=== PATIENT | female | born 1955 | race Caucasian/White ===

== ENCOUNTER 2019-11-18 10:26 | Emergency (ER) | payer MEDICARE, SELFPAY ==
[2019-11-18 10:43] VITALS: BP 160/86; PULSE 78; RESP 16; TEMP 36.6; O2SAT 100
--- NOTE | 2019-11-18 10:53 | ED.EYEPROB ---
HPI - Eye Problem General Chief complaint: Eye Problems Stated complaint: eye problems Time Seen by Provider: 11/18/19 10:47 Source: patient and RN notes reviewed Mode of arrival: ambulatory Limitations: no limitations History of Present Illness HPI Narrative: Patient presents today complaining of redness, pain, and swelling to the right upper eyelid since yesterday. Reports a small amount of drainage in the inner canthus when she woke up this morning, but denies any additional drainage. Denies vision changes. She has tried no [id number] interventions prior to arrival. chief complaint: eye pain Related Data Home Medications Medication Instructions Recorded Confirmed loperamide 11/18/19 Allergies Allergy/AdvReac Type Severity Reaction Status Date / Time Opioids - Morphine Analogues AdvReac Vomiting Verified 04/21/19 12:40 Review of Systems Review of Systems: Narrative: CONSTITUTIONAL: Denies body aches, fever, chills, or sweats. EYES: Denies visual changes, redness, or discharge. Right eyelid redness and swelling ENT: Denies rhinorrhea, congestion, sore throat, or otalgia. CARDIOVASCULAR: Denies chest pain, palpitations, or edema. RESPIRATORY: Denies cough or dyspnea. GASTROINTESTINAL: Denies abdominal pain, nausea, vomiting, or diarrhea. GENITOURINARY: Denies dysuria or hematuria. SKIN: Denies rash, itching, or wounds. MUSCULOSKELETAL: Denies back pain, joint pain, or myalgia. NEUROLOGIC: Denies headache, numbness, tingling, or weakness. PSYCH: Denies depression or anxiety. [facility] Past Medical History Medical History (Updated 11/18/19 @ 10:55 by Gi Ha, [facility], ) Anxiety Depression IBS (irritable bowel syndrome) Kidney stone on right side Surgical History Surgical History (Updated 04/21/19 @ 21:48 by Veronica Barraza) Hx of lithotripsy Family History Family History (Updated 02/14/19 @ 08:21 by DOCTOR UNKNOWN) Father Family history of coronary artery disease, Onset Age: 64 Mother Family history of malignant neoplasm of breast in first degree relative Sibling Family history of malignant neoplasm of breast in first degree relative Social History Social History Smoking status: Never smoker Alcohol intake: never Comments At time of signature, I have reviewed and agree with nursing past medical, surgical, social and family history unless otherwise noted. Please see nursing chart for further information. There is no relevant family history pertinent to the presenting complaint Exam Narrative: Exam Narrative: GENERAL: Well-appearing, well-nourished, and in no acute distress. HEAD: Normocephalic, atraumatic. EYES: EOMI. PERRL. No redness or drainage. Conjunctivae normal bilaterally. Mild edema of the right upper eyelid margin with small pustule to inner canthus. ENT: Mucous membranes pink and moist. NECK: Normal AROM. CHEST: No respiratory distress. EXTREMITIES: Normal range of motion. No edema. SKIN: Warm, dry, no rash. Capillary refill normal. Normal skin turgor. NEURO: No focal deficits. Alert and oriented x3. Gait steady. PSYCH: Normal affect. No signs of depression or anxiety. Course Vital Signs Vital signs: Vital Signs Temperature 97.9 F 11/18/19 10:43 Pulse Rate 78 11/18/19 10:43 Respiratory Rate 16 11/18/19 10:43 Blood Pressure 160/86 H 11/18/19 10:43 Pulse Oximetry 100 11/18/19 10:43 Temperature 97.9 F 11/18/19 10:43 Pulse Rate 78 11/18/19 10:43 Respiratory Rate 16 11/18/19 10:43 Blood Pressure 160/86 H 11/18/19 10:43 Pulse Oximetry 100 11/18/19 10:43 Reviewed. Pt has been instructed to follow up with her PCP regarding her elevated blood pressure today. MDM - Eye Problem Differential Diagnosis Differential diagnosis: Likely conjunctivitis, periorbital cellulitis and other (Stye, blepharitis) Critical Care Time Critical Care Time Critical Care Time: No Discharge Plan Discharge C
== END 2019-11-18 11:02 | disposition home or self-care (01) ==
PROVIDERS: Emergency Provider Nurse Practitioner; PCP Family Medicine
DX: H00.011 Hordeolum externum right upper eyelid (principal); K58.9 Irritable bowel syndrome, unspecified; F41.9 Anxiety disorder, unspecified; F32.9 Major depressive disorder, single episode, unspecified
CPT/HCPCS: 99213; G0463

== ENCOUNTER 2019-12-04 09:24 | Emergency (ER) | payer MEDICARE, SELFPAY ==
[2019-12-04 09:50] VITALS: BP 152/80; PULSE 82; RESP 18; TEMP 36.4; O2SAT 100
--- NOTE | 2019-12-04 10:06 | ED.FEMALEGU ---
HPI - Female Genitourinary General Chief complaint: Urogenital-Female Stated complaint: Possible uti Time Seen by Provider: 12/04/19 09:57 Source: patient and RN notes reviewed Mode of arrival: ambulatory Limitations: no limitations History of Present Illness HPI Narrative: Patient presents today complaining of a 3-day history of dysuria, urgency, urinary frequency. Denies fever, nausea, vomiting, flank pain, or abdominal pain. She has been taking Azo with some relief. No recent antibiotic use. MD elicited complaint: dysuria Related Data Home Medications Medication Instructions Recorded Confirmed loperamide 1 tablet QID 11/18/19 12/04/19 Allergies Allergy/AdvReac Type Severity Reaction Status Date / Time Opioids - Morphine Analogues AdvReac Vomiting Verified 04/21/19 12:40 Review of Systems Review of Systems: Narrative: CONSTITUTIONAL: Denies body aches, fever, chills, or sweats. EYES: Denies visual changes, redness, or discharge. ENT: Denies rhinorrhea, congestion, sore throat, or otalgia. CARDIOVASCULAR: Denies chest pain, palpitations, or edema. RESPIRATORY: Denies cough or dyspnea. GASTROINTESTINAL: Denies abdominal pain, nausea, vomiting, or diarrhea. GENITOURINARY: Denies hematuria or flank pain.+ Dysuria, frequency, urgency SKIN: Denies rash, itching, or wounds. MUSCULOSKELETAL: Denies back pain, joint pain, or myalgia. NEUROLOGIC: Denies headache, numbness, tingling, or weakness. PSYCH: Denies depression or anxiety. [facility] Past Medical History Medical History (Updated 12/04/19 @ 10:08 by Gi Ha, [facility]) Anxiety Depression IBS (irritable bowel syndrome) Kidney stone on right side Surgical History Surgical History (Updated 04/21/19 @ 21:48 by Veronica Barraza) Hx of lithotripsy Family History Family History (Updated 02/14/19 @ 08:21 by DOCTOR UNKNOWN) Father Family history of coronary artery disease, Onset Age: 64 Mother Family history of malignant neoplasm of breast in first degree relative Sibling Family history of malignant neoplasm of breast in first degree relative Social History Social History Smoking status: Never smoker Alcohol intake: never Gender identity (if verbalized by the patient): Female Comments At time of signature, I have reviewed and agree with nursing past medical, surgical, social and family history unless otherwise noted. Please see nursing chart for further information. There is no relevant family history pertinent to the presenting complaint Exam Narrative: Exam Narrative: GENERAL: Well-appearing, well-nourished, and in no acute distress. HEAD: Normocephalic, atraumatic. EYES: EOMI. No redness or drainage. Conjunctivae normal. ENT: Mucous membranes pink and moist. NECK: Normal AROM. CHEST: No respiratory distress. Clear to auscultation. HEART: Regular rate and rhythm. No murmur appreciated. Normal peripheral pulses. ABDOMEN: Soft, nontender, nondistended, normal active bowel sounds.-CVAT MUSCULOSKELETAL: No bony tenderness. EXTREMITIES: Normal range of motion. No edema. SKIN: Warm, dry, no rash. Capillary refill normal. Normal skin turgor. NEURO: No focal deficits. Alert and oriented x3. Gait steady. PSYCH: Normal affect. No signs of depression or anxiety. Course Vital Signs Vital signs: Vital Signs Temperature 97.6 F 12/04/19 09:50 Pulse Rate 82 12/04/19 09:50 Respiratory Rate 18 12/04/19 09:50 Blood Pressure 152/80 H 12/04/19 09:50 Pulse Oximetry 100 12/04/19 09:50 Temperature 97.6 F 12/04/19 09:50 Pulse Rate 82 12/04/19 09:50 Respiratory Rate 18 12/04/19 09:50 Blood Pressure 152/80 H 12/04/19 09:50 Pulse Oximetry 100 12/04/19 09:50 Reviewed. Pt has been instructed to follow up with her PCP regarding her elevated blood pressure today. MDM - Female Genitourinary Differential Diagnosis Differential diagnosis: Likely urinary tract infection, vaginitis, cystitis and
== END 2019-12-04 10:17 | disposition home or self-care (01) ==
PROVIDERS: Emergency Provider Nurse Practitioner; PCP Family Medicine
DX: N39.0 Urinary tract infection, site not specified (principal)
CPT/HCPCS: 81003; 87086; 99213; G0463

== ENCOUNTER 2020-02-05 07:20 | Outpatient (CLI) | payer MEDICARE, OTHER, SELFPAY ==
--- NOTE | ~2020-02-05 | US_ITS ---
EXAMINATION: US right upper quadrant DATE: 02/05/2020 07:53 INDICATION: Right upper quadrant pain, other chest pain TECHNIQUE: Multiple grayscale and Doppler ultrasound images of the abdomen were obtained. COMPARISON: CT, 04/21/2019 FINDINGS: The head and and body of the pancreas are normal. The pancreatic tail is obscured by bowel gas. There is a 1.5 cm cyst of the liver. The liver is otherwise normal with normal echogenicity and echotexture. No surface nodularity. Normal hepatopetal flow in the main portal vein. The gallbladder is normal with no abnormal wall thickening, pericholecystic fluid or stones. The normal common bile d uct measures 4 mm. There was no sonographic Osullivan sign. IMPRESSION: 1. Normal sonographic study of the gallbladder. Reviewed, dictated and finalized at location A.
== END 2020-02-05 07:21 | disposition home or self-care (01) ==
LOC: ANHIMG 07:25
PROVIDERS: PCP Family Medicine; Visit Provider Physician Assistant
DX: R07.89 Other chest pain (principal)
CPT/HCPCS: 76705

== ENCOUNTER 2020-02-09 07:30 | Outpatient (CLI) | payer MEDICARE, OTHER, SELFPAY ==
--- NOTE | ~2020-02-09 | NM_ITS ---
EXAMINATION: NM hepatobiliary w pharm DATE: 02/09/2020 10:44 INDICATION: Unspecified abdominal pain. COMPARISON: Ultrasound 02/05/2020 TECHNIQUE: 4.9 mCi Tc-99m mebrofenin (Choletec) was administered intravenously. Scintigraphic images of the abdomen were obtained for one hour. Then, 1.1 mcg sincalide (Kinevac) IV was administered, an d imaging was continued for 30 minutes. FINDINGS: There is normal clearance of radiotracer from the blood pool. There is homogeneous tracer u ptake by the liver. Activity progresses to the bowel and gallbladder. Gallbladder ejection fraction (GBEF) was 69%. Note that most patients with gallbladder dysfunction have GBEF < 35%, which overlaps with the broad normal range of 10-90%. IMPRESSION: 1. Normal hepatobiliary scintigraphy. Reviewed, dictated and finalized at location A.
== END 2020-02-09 07:31 | disposition home or self-care (01) ==
PROVIDERS: PCP Family Medicine; Visit Provider Family Medicine
DX: R10.9 Unspecified abdominal pain (principal)
CPT/HCPCS: 78227; A9537; J2805

== ENCOUNTER 2020-07-12 09:40 | Emergency (ER) | payer MEDICARE, SELFPAY ==
[2020-07-12 09:49] VITALS: BP 142/79; PULSE 110; RESP 16; TEMP 36; O2SAT 99
--- NOTE | 2020-07-12 09:50 | ED.FEMALEGU ---
HPI - Female Genitourinary General Chief complaint: Urogenital-Female Stated complaint: burning urination Time Seen by Provider: 07/12/20 10:04 Source: patient and RN notes reviewed Mode of arrival: ambulatory Limitations: no limitations History of Present Illness HPI Narrative: 65-year-old female presents with concern for urinary tract infection for 7 days. Reports dysuria, low back discomfort, feeling of brain fogginess. Reports she has been taking and prescription of Bactrim, that in 2018, for the past 3 days. Reports the symptoms did not resolve with the Bactrim. Reports she is also been taking Azo, took it today. She denies fever, body aches, chills, sweats, abdominal pain, nausea, vomiting, diarrhea. MD elicited complaint: UTI Related Data Home Medications Medication Instructions Recorded Confirmed loperamide 1 tablet QID 11/18/19 06/07/20 omeprazole 20 mg tablet,delayed 20 mg PO DAILY 01/25/20 06/07/20 release Allergies Allergy/AdvReac Type Severity Reaction Status Date / Time Opioids - Morphine Analogues AdvReac Vomiting Verified 06/07/20 08:59 Review of Systems Review of Systems: Narrative: CONSTITUTIONAL: Denies malaise, chills, sweats, or fever. EYES: Denies visual changes, redness, or discharge. ENT: Denies rhinorrhea, congestion, sinus pain, otalgia or sore throat. CARDIOVASCULAR: Denies chest pain, palpitations, or edema. RESPIRATORY: Denies cough or dyspnea. GASTROINTESTINAL: Denies abdominal pain, nausea, vomiting, diarrhea, bloody, or mucous stools. GENITOURINARY: Reports dysuria. Denies frequency, urgency, hematuria. SKIN: Denies rash or itching. MUSCULOSKELETAL: Reports bilateral low back pain. Denies myalgia. NEUROLOGIC: Denies numbness, weakness, or headache. All systems reviewed & are unremarkable except as noted in HPI and below PMFSH Past Medical History Medical History Anxiety Depression IBS (irritable bowel syndrome) Kidney stone on right side Surgical History Surgical History Hx of lithotripsy Family History Family History Father Family history of coronary artery disease, Onset Age: 64 Mother Family history of malignant neoplasm of breast in first degree relative Sibling Family history of malignant neoplasm of breast in first degree relative Social History Social History Smoking status: Current every day smoker Tobacco type: cigarettes Additional smoking assessment comments: Started 3-4mo ago Alcohol intake: current Drinks per week: 8 Substance use: never Substance use type: does not use Gender identity (if verbalized by the patient): Female Comments At time of signature, agree with nursing past medical, surgical, social and family history. There is no relevant family history pertinent to the presenting complaint Exam Narrative: Exam Narrative: GENERAL: Well-appearing, well-nourished, and in no acute distress. HEAD: Normocephalic. EYES: PERRLA, conjunctivae clear. NECK: Supple. No lymphadenopathy CHEST: Clear to auscultation. No respiratory distress. HEART: Regular rate and rhythm. ABDOMEN: Soft, nontender upon palpation, nondistended, normal active bowel sounds, no palpable or pulsatile masses, no guarding. No CVA tenderness SKIN: Warm, dry, no rash. NEURO: Alert and oriented x3. No focal deficits PSYCH: Normal mood and affect Course Course Emergency Course: Patient is aware of diagnosis, understands and agrees to treatment plan. Anticipatory guidance given. Patient agrees to follow-up as directed and is aware of reasons to seek care at the emergency department. Portions of this record may have been created with voice recognition software Vital Signs Vital signs: Vital Signs Temperature 96.8 F L
== END 2020-07-12 10:17 | disposition home or self-care (01) ==
PROVIDERS: Emergency Provider Nurse Practitioner; PCP Family Medicine
DX: R30.0 Dysuria (principal); M54.5 Low back pain; F17.210 Nicotine dependence, cigarettes, uncomplicated
CPT/HCPCS: 81003; 87086; 99213; G0463

== ENCOUNTER 2020-10-23 15:33 | Outpatient (CLI) | payer MEDICARE, OTHER, SELFPAY ==
--- NOTE | ~2020-10-23 | MM_ITS ---
EXAMINATION: MM screening marie BI w callum HISTORY: Screening TECHNIQUE: Craniocaudal and mediolateral oblique 3-D tomosynthesis images were obtained and synthetic 2-D images were generated. CAD analysis was submitted and interpreted. COMPARISON: Comparison to multiple prior studies sequentially, with oldest reviewed study dated 02/10. BREAST PARENCHYMAL COMPOSITION: The breasts are extremely dense, which lowers the sensitivity of mamm ography. FINDINGS: There are developing asymmetries centrally in the left breast on CC view with possible arch itectural distortion. These findings are not definitely seen on the MLO view. The right breast is sta ble without evidence for malignancy. IMPRESSION: 1. Developing left breast asymmetries. 2. Additional mammographic views and possible breast ultrasound are recommended. BI-RADS Category 0: Incomplete: Needs additional imaging evaluation. Reviewed, dictated and finalized at location A. IMPRESSION: 1. Developing left breast asymmetries. 2. Additional mammographic views and possible breast ultrasound are recommended . BI-RADS Category 0: Incomplete: Needs additional imaging evaluation.
== END 2020-10-23 15:34 | disposition home or self-care (01) ==
LOC: ANHIMG 15:35
PROVIDERS: PCP Family Medicine; Visit Provider Family Medicine
DX: Z12.31 Encounter for screening mammogram for malignant neoplasm of breast (principal); R92.8 Other abnormal and inconclusive findings on diagnostic imaging of breast
CPT/HCPCS: 77063; 77067

== ENCOUNTER 2020-11-19 12:14 | Outpatient (CLI) | payer MEDICARE, OTHER, SELFPAY ==
--- NOTE | ~2020-11-19 | MMUS_ITS ---
EXAMINATION: MM diagnostic mammo unilat LT, US breast LT complete HISTORY: Follow-up left breast asymmetry TECHNIQUE: Additional 3-D tomosynthesis images of the left breast were performed and synthetic 2-D im ages were generated. CAD analysis was submitted and interpreted. High resolution complete left breast ultrasound was performed. COMPARISON: Comparison to multiple prior studies sequentially, with oldest reviewed study dated 02/10. BREAST PARENCHYMAL COMPOSITION: The breasts are heterogenously dense, which may obscure small masses. FINDINGS: MAMMOGRAPHIC FINDINGS: There are no suspicious masses, calcifications or architectural distortion with spot compression or m ediolateral views. ULTRASOUND: Complete left breast ultrasound: At 1:00, 7 cm from the nipple, there is a 1 cm cyst. No suspicious m asses to suggest malignancy. IMPRESSION: 1. No evidence for malignancy in the left breast. Benign finding. 2. Routine yearly screening mammogram and regular clinical breast examination are recommended. BI-RADS Category 2: Benign finding(s). Reviewed, dictated and finalized at location A. IMPRESSION: 1. No evidence for malignancy in the left breast. Benign finding. 2. Routine yearly screening mammogram and regular clinical breast examination a re recommended. BI-RADS Category 2: Benign finding(s).
== END 2020-11-19 12:15 | disposition home or self-care (01) ==
LOC: ANHIMG 12:16
PROVIDERS: PCP Family Medicine; Visit Provider Family Medicine
DX: R92.8 Other abnormal and inconclusive findings on diagnostic imaging of breast (principal)
CPT/HCPCS: 76641; 77065

== ENCOUNTER 2021-03-31 15:50 | Outpatient (CLI) | payer MEDICARE, OTHER, SELFPAY ==
--- NOTE | ~2021-03-31 | XR_ITS ---
XR knee RT 3V DATE: 03/31/2021 16:19 INDICATION: Fall in January. Lateral right knee pain TECHNIQUE: AP, lateral and sunrise views COMPARISON: None FINDINGS: There is prominent distention of the suprapatellar bursa consistent with a large joint effu stan. There is mild periarticular spurring of the patella. There is prominent loss of lateral compartment joint space and mild periarticular spurring. There is minimal particular spurring at the medial compartment. No fracture or dislocation, periosteal reaction or bone destruction, radiopaque intra-articular loose body or chondrocalcinosis is detected. 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 Consider MRI for evaluation of possible internal derangement Reviewed, dictated and finalized at location B. IMPRESSION: Tricompartment osteoarthritis, most pronounced at the lateral nestor rtment Prominent knee joint effusion; no apparent fracture. Consider MRI for evaluatio n of possible internal derangement
--- NOTE | ~2021-03-31 | XR_ITS ---
XR lumbar spine 2-3V DATE: 03/31/2021 16:19 INDICATION: Fall in January 2021. Right low back pain, worsening TECHNIQUE: AP, lateral, coned lateral lumbosacral views COMPARISON: None FINDINGS: There is levoscoliosis of the thoracolumbar spine. There are 6 functional lumbar vertebrae. There is diffuse osteopenia. No fracture or bone destruction is detected. The lumbar and included lower thoracic pedicles are inta ct. Lumbar interspaces appear relatively preserved. The sacroiliac joints are intact. IMPRESSION: Levoscoliosis Reviewed, dictated and finalized at location B. IMPRESSION: Levoscoliosis
--- NOTE | ~2021-03-31 | XR_ITS ---
XR hip RT min 2V DATE: 03/31/2021 16:20 INDICATION: Fall. Right hip pain radiating down leg TECHNIQUE: AP, lateral and crosstable lateral views of right hip COMPARISON: None FINDINGS: No fracture or dislocation, avascular necrosis or bone destruction of the right hip. The ri t hip joint space is well preserved. The pubic symphysis and sacroiliac joints are intact. IMPRESSION: Negative right hip Reviewed, dictated and finalized at location B. IMPRESSION: Negative right hip
== END 2021-03-31 15:51 | disposition home or self-care (01) ==
LOC: ANHIMG 15:55
PROVIDERS: PCP Family Medicine; Visit Provider Nurse Practitioner Family
DX: M25.551 Pain in right hip (principal); M54.50 Low back pain, unspecified; M17.11 Unilateral primary osteoarthritis, right knee; M25.461 Effusion, right knee
CPT/HCPCS: 72100; 73502; 73562

== ENCOUNTER 2021-04-20 09:46 | Emergency (ER) | payer MEDICARE, OTHER, SELFPAY ==
--- NOTE | ~2021-04-20 | XR_ITS ---
EXAMINATION: XR foot LT min 3V EXAM DATE: 04/20/2021 10:14 INDICATION: Trauma, initial encounter.attention dorsal mid left foot hematoma pain and limited weight bearing. TECHNIQUE: Left foot dorsoplantar, lateral and oblique projections obtained and reviewed. There is n o prior study for comparison. FINDINGS: Acute closed posttraumatic mildly comminuted fracture at the base of the left 5th metatarsa l bone, with fracture line extending both into the tarsometatarsal joint and also toward the 4th meta tarsal base, Dennis type fracture. Only 1 or 2 mm displacement. There is overlying soft tissue swellin g. No other acute findings. IMPRESSION: Mildly comminuted left 4th metatarsal base intra-articular fractures. Reviewed, dictated and finalized at location A. IMPRESSION: Mildly comminuted left 4th metatarsal base intra-articular fractur es.
[2021-04-20 09:55] VITALS: PULSE 94; RESP 16; TEMP 36.7; O2SAT 98
[2021-04-20 10:00] VITALS: BP 143/81
--- NOTE | 2021-04-20 10:18 | ED.LOWEXIN ---
HPI - Extremity Injury (Lower) General Chief Complaint: Extremity Injury, Lower <Jessi Hernández PA-C - Last Filed: 04/20/21 10:35> Stated Complaint: left foot injury <LORENA Garcia Last Filed: 04/20/21 10:35> Time Seen by Provider: 04/20/21 10:10 <LORENA Garcia Last Filed: 04/20/21 10:35> Source: patient <LORENA Garcia Last Filed: 04/20/21 10:35> Mode of arrival: ambulatory <LORENA Garcia Last Filed: 04/20/21 10:35> Limitations: no limitations <LORENA Garcia Last Filed: 04/20/21 10:35> History of Present Illness HPI Narrative: This is a 65-year-old female that presents to the emergency department for left foot injury sustained yesterday. Reports she was taking her dog out to the bathroom. Reports she tripped down the last couple of steps. Reports this caused her to hit her foot on a stone. Reports bruising and swelling to the area. Reports pain with ambulation. Denies hitting her head, loss of consciousness, other injuries, decreased range of motion, or numbness. <Jessi Hernández PA-C - Last Filed: 04/20/21 10:35> Related Data Home Medications: Home Medications Medication Instructions Recorded Confirmed loperamide 1 tablet QID 11/18/19 12/24/20 omeprazole 20 mg tablet,delayed 20 mg PO DAILY 01/25/20 12/24/20 release bupropion HCl 150 mg 24 hr tablet, 150 mg PO QAM 11/25/20 12/24/20 extended release <LORENA Garcia Last Filed: 04/20/21 10:35> Allergies/Adverse Reactions: Allergies Allergy/AdvReac Type Severity Reaction Status Date / Time Opioids - Morphine Analogues AdvReac Vomiting Verified 12/24/20 14:42 <LORENA Garcia Last Filed: 04/20/21 10:35> Review of Systems Review of Systems: CONSTITUTIONAL: Denies fever MUSCULOSKELETAL: Reports joint pain, and myalgia. NEUROLOGIC: Denies numbness <Jessi Hernández PA-C - Last Filed: 04/20/21 10:35> All systems reviewed & are unremarkable except as noted in HPI and below <Jessi Hernández PA-C - Last Filed: 04/20/21 10:35> PMFSH Past Medical History Medical History: Medical History Anxiety Depression IBS (irritable bowel syndrome) Kidney stone on right side <Jessi Hernández PA-C - Last Filed: 04/20/21 10:35> Surgical History Surgical History: Surgical History Hx of lithotripsy <Jessi Hernández PA-C - Last Filed: 04/20/21 10:35> Family History Family History: Family History Father Family history of coronary artery disease, Onset Age: 64 Mother Family history of malignant neoplasm of breast in first degree relative Sibling Family history of malignant neoplasm of breast in first degree relative <Jessi Hernández PA-C - Last Filed: 04/20/21 10:35> Social History Social History: Social History Years smoked: 10 Smoking status: Light tobacco smoker Tobacco type: cigarettes Second hand tobacco smoke exposure: No Additional smoking assessment comments: Started 3-4mo ago Alcohol intake: current Drinks per week: 5 Substance use: never Substance use type: does not use Gender identity (if verbalized by the patient): Female Sexual Orientation (if Verbalized by the Patient): Straight or Heterosexual <Jessi Hernández PA-C - Last Filed: 04/20/21 10:35> Exam Narrative: GENERAL: Well-appearing, well-nourished, and in no acute distress. HEAD: Normocephalic, atraumatic. EYES: EOMI. EXTREMITIES: Normal range of motion. No obvious deformity. Moderate bruising and swelling to the left foot dorsal surface. Normal DP pulses. Normal sensation SKIN: Warm, dry, no rash. NEURO: No focal deficits. Alert and oriented x3. PSYCH: Normal mood and affect
== END 2021-04-20 11:52 | disposition home or self-care (01) ==
PROVIDERS: Emergency Provider Emergency Medicine; PCP Family Medicine
DX: S92.355A Nondisplaced fracture of fifth metatarsal bone, left foot, initial encounter for closed fracture (principal); F41.9 Anxiety disorder, unspecified; F32.9 Major depressive disorder, single episode, unspecified; K58.9 Irritable bowel syndrome, unspecified; Z87.442 Personal history of urinary calculi; W10.9XXA Fall (on) (from) unspecified stairs and steps, initial encounter
CPT/HCPCS: 29515; 73630; 99283; 99284

== ENCOUNTER 2021-04-27 12:30 | Outpatient (CLI) | payer MEDICARE, OTHER, SELFPAY ==
--- NOTE | ~2021-04-27 | MR_ITS ---
EXAMINATION: MR knee RT wo con DATE: 04/27/2021 13:41 INDICATION: Right knee pain. TECHNIQUE: Magnetic resonance imaging (MRI) of the right knee was performed without intravenous contr ast. Sequences included axial PD-weighted FS FSE, coronal PD-weighted FSE and PD-weighted FS FSE, sag ittal PD-weighted FSE, and sagittal T2-weighted FS FSE. COMPARISON: Right knee radiographs 03/31/2021 FINDINGS: Medial compartment: Medial meniscus is normal. There is shallow partial-thickness cartilage loss of tibial condyle and fe moral condyle. Osteophytes are noted. Lateral compartment: There is a complex tear involving body and anterior horn of lateral meniscus. There is full-thickness cartilage loss of tibial condyle involving the lateral articular surface with mild subchondral edema -like marrow signal intensity. There is full-thickness cartilage loss of femoral condyle involving th e lateral and posterior articular surface with moderate subchondral edema-like marrow signal intensit y. Osteophytes are noted. Patellofemoral compartment: There is full-thickness cartilage loss of patellar lateral facet with mild subchondral edema-like mar row signal intensity. There is deep partial-thickness colitis loss of patellar medial facet with mild subchondral edema-like marrow signal intensity. There is partial-thickness cartilage loss of trochle a. Osteophytes are noted. Ligaments and tendons: The anterior and posterior cruciate ligaments are normal. Medial collateral ligament is normal. There are changes of prior sprain of fibular collateral ligament characterized increased signal intensity proximally. There is mild patellar tendinopathy. Fluid: There is a moderate-sized knee joint effusion. There is mild superficial infrapatellar bursitis. IMPRESSION: 1. 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 2. Complex tear of lateral meniscus. 3. Moderate-sized knee joint effusion. Reviewed, dictated and finalized at location A. [facility] IMPRESSION: 1. Severe chondrosis of lateral and patellofemoral compartments and mild chondr osis of medial compartment. 2. Complex tear of lateral meniscus. 3. Moderate-sized knee joint effusion.
== END 2021-04-27 12:31 | disposition home or self-care (01) ==
PROVIDERS: PCP Family Medicine; Visit Provider Nurse Practitioner Family
DX: M25.461 Effusion, right knee (principal); S83.271A Complex tear of lateral meniscus, current injury, right knee, initial encounter; X58.XXXA Exposure to other specified factors, initial encounter
CPT/HCPCS: 73721

== ENCOUNTER 2021-04-30 08:34 | Outpatient (CLI) | payer MEDICARE, OTHER, SELFPAY ==
--- NOTE | 2021-04-30 11:15 | NEURO_ITS ---
Impression: # Complains of numbness of hands. # Bilateral Carpal Tunnel Syndrome, sensory more than motor. # Right APB mildly neurogenic. # No ulnar neuropathy. Nerve Conduction Studies Anti Sensory Summary Table Stim Site NR Peak (ms) P-T Amp (?V) Site1 Site2 Delta-P (ms) Dist (cm) Tj (m/s) Left Median Anti Sensory (2-3nd Digit) Wrist 3.2 84.3 Wrist 2-3nd Digit 3.2 14.0 44 Wrist 5.7 62.2 Wrist 2-3nd Digit 3.2 14.0 44 Right Median Anti Sensory (2-3nd Digit) Wrist 4.5 12.4 Wrist 2-3nd Digit 4.5 14.0 31 Wrist 5.6 37.2 Wrist 2-3nd Digit 4.5 14.0 31 Left Radial Anti Sensory (Base 1st Digit) Wrist 2.1 26.7 Wrist Base 1st Digit 2.1 0.0 Right Radial Anti Sensory (Base 1st Digit) Wrist 2.1 17.4 Wrist Base 1st Digit 2.1 0.0 Left Ulnar Anti Sensory (5th Digit) Wrist 2.5 39.9 Wrist 5th Digit 2.5 14.0 56 Right Ulnar Anti Sensory (5th Digit) Wrist 2.6 32.7 Wrist 5th Digit 2.6 14.0 54 Motor Summary Table Stim Site NR Onset (ms) O-P Amp (mV) Site1 Site2 Delta-0 (ms) Dist (cm) Tj (m/s) Left Median Motor (Abd Poll Brev) Wrist 3.3 2.0 Elbow Wrist 4.1 24.0 59 Elbow 7.4 1.5 Right Median Motor (Abd Poll Brev) Wrist 3.4 1.9 Elbow Wrist 4.1 24.0 59 Elbow 7.5 2.1 Left Ulnar Motor (Abd Dig Minimi) Wrist 2.4 8.3 A Elbow Wrist 4.4 26.0 59 A Elbow 6.8 7.4 Right Ulnar Motor (Abd Dig Minimi) Wrist 2.2 8.8 A Elbow Wrist 4.3 25.0 58 A Elbow 6.5 7.5 F Wave Studies NR F-Lat (ms) L-R F-Lat (ms) Left Median (Mrkrs) (Abd Poll Brev) 24.45 0.12 Right Median (Mrkrs) (Abd Poll Brev) 24.57 0.12 Left Ulnar (Mrkrs) (Abd Dig Min) 24.43 0.76 Right Ulnar (Mrkrs) (Abd Dig Min) 23.67 0.76 EMG Side Muscle Nerve Root Ins Act Fibs Amp Dur Recrt Comment Right 1stDorInt Ulnar C8-T1 Nml Nml Nml Nml Nml Right Ext Indicis Radial (Post Int) C7-8 Nml Nml Nml Nml Nml Right Ext Digitorum Radial (Post Int) C7-8 Nml Nml Nml Nml Nml Right BrachioRad Radial C5-6 Nml Nml Nml Nml Nml Right PronatorTeres Median C6-7 Nml Nml Nml Nml Nml Right Abd Poll Brev Median C8-T1 Nml Nml Nml Nml Reduced Left 1stDorInt Ulnar C8-T1 Nml Nml Nml Nml Nml Left Ext Indicis Radial (Post Int) C7-8 Nml Nml Nml Nml Nml Left Ext Digitorum Radial (Post Int) C7-8 Nml Nml Nml Nml Nml Left BrachioRad Radial C5-6 Nml Nml Nml Nml Nml Left PronatorTeres Median C6-7 Nml Nml Nml Nml Nml Left Abd Poll Brev Median C8-T1 Nml Nml Nml Nml Nml Right ABD Dig Min Ulnar C8-T1 Nml Nml Nml Nml Nml Left ABD Dig Min Ulnar C8-T1 Nml Nml Nml Nml Nml MTDD
== END 2021-04-30 08:35 | disposition home or self-care (01) ==
PROVIDERS: PCP Family Medicine; Visit Provider Nurse Practitioner Family
DX: R20.2 Paresthesia of skin (principal); G56.03 Carpal tunnel syndrome, bilateral upper limbs
CPT/HCPCS: 95886; 95911

== ENCOUNTER 2021-06-07 07:25 | Outpatient (CLI) | payer MEDICARE, OTHER, SELFPAY ==
--- NOTE | 2021-06-07 | ECG_ITS ---
Measurements Intervals [place] Rate: 68 P: 45 MD: 141 QRS: 69 QRSD: 86 T: 54 QT: 394 QTc: 420 Interpretive Statements SINUS RHYTHM BASELINE WANDER- I, II, AVR NORMAL ECG Electronically Signed On 06-07-2021 12:08:22 SENIOR SYSTEMS DEVELOPER by Henrry Mohan D.O.
--- NOTE | ~2021-06-07 | MR_ITS ---
EXAMINATION: MR lumbar spine wo/w con DATE: 06/07/2021 08:35 INDICATION: Low back pain. TECHNIQUE: Magnetic resonance imaging (MRI) of the lumbar spine was performed without and with 11 mL MultiHance intravenous contrast. Sequences included sagittal T2-weighted FSE, sagittal T2-weighted FS FSE, and sagittal and axial T1-weighted FSE. Postcontrast sequences included axial T2-weighted FSE a nd axial and sagittal T1-weighted FS FSE. COMPARISON: Lumbar spine radiographs 03/31/2021 FINDINGS: There is 9 degrees levocurvature of thoracolumbar spine. Vertebral body heights are normal. There is severely decreased disc height at L5-S1 with endplate remodeling. The distal spinal cord si gnal intensity is normal. The conus medullaris is at L1-L2. The following disc levels are specificall y discussed: L1-L2: The disc does not extend beyond the endplate margin. There is moderate right and mild left fac et joint osteoarthritis. There is no neural foraminal stenosis. There is no central canal stenosis. L2-L3: The disc is mildly bulging. There is severe right and moderate left facet joint osteoarthritis . There is mild bilateral neural foraminal stenosis. There is no central canal stenosis. L3-L4: The disc is mildly bulging. There is moderate right and mild left facet joint osteoarthritis. There is mild bilateral neural foraminal stenosis. There is no central canal stenosis. L4-L5: The disc is bulging and has an annular fissure. There is severe bilateral facet joint osteoart hritis. There is mild bilateral neural foraminal stenosis. There is no central canal stenosis. L5-S1: The disc is bulging. There is severe bilateral facet joint osteoarthritis. There is mild bilat eral neural foraminal stenosis. There is no central canal stenosis. IMPRESSION: 1. Severe lower lumbar spondylosis. Reviewed, dictated and finalized at location A. 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
[2021-06-07 08:02] LABS: Estimated Glomerular Filt Rate > 60
== END 2021-06-07 07:26 | disposition home or self-care (01) ==
LOC: ANHIMG 07:28
PROVIDERS: PCP Family Medicine
DX: M54.31 Sciatica, right side (principal); M47.817 Spondylosis without myelopathy or radiculopathy, lumbosacral region; M48.07 Spinal stenosis, lumbosacral region
CPT/HCPCS: 72158; 93005; A9577

== ENCOUNTER 2021-08-12 10:30 | Emergency (ER) | payer MEDICARE, OTHER, SELFPAY ==
[2021-08-12 11:23] VITALS: BP 152/81; PULSE 81; RESP 16; TEMP 36.8; O2SAT 99
--- NOTE | 2021-08-12 12:36 | ED.GENADULT ---
HPI - General Adult General Chief complaint: Skin/Abscess/Foreign Body Stated complaint: Abcess in Nose Time Seen by Provider: 08/12/21 11:52 History of Present Illness HPI narrative: Patient is a 66-year-old female who presents ER with pain and tenderness to her nose. Ongoing over the last couple days. Red. Has some drainage from the left nostril in the mornings. She has been cleaning it with hydrogen peroxide. No fevers or chills or sweats. Concerned she may have staph infection. Pain radiates into her teeth. Related Data Home Medications Medication Instructions Recorded Confirmed loperamide 1 tablet QID 11/18/19 12/24/20 omeprazole 20 mg tablet,delayed 20 mg PO DAILY 01/25/20 12/24/20 release bupropion HCl 150 mg 24 hr tablet, 150 mg PO QAM 11/25/20 12/24/20 extended release Allergies Allergy/AdvReac Type Severity Reaction Status Date / Time Opioids - Morphine Analogues AdvReac Vomiting Verified 12/24/20 14:42 Review of Systems Constitutional: Constitutional: Denies chills, Denies fever(s) and Denies weakness ENT: Denies nasal congestion and Denies sore throat Comments: Nasal pain Respiratory: Respiratory: Denies cough and Denies dyspnea PMFSH Past Medical History Medical History Anxiety Depression IBS (irritable bowel syndrome) Kidney stone on right side Surgical History Surgical History Hx of lithotripsy Family History Family History Father Family history of coronary artery disease, Onset Age: 64 Mother Family history of malignant neoplasm of breast in first degree relative Sibling Family history of malignant neoplasm of breast in first degree relative Social History Social History Years smoked: 10 Smoking status: Light tobacco smoker Tobacco type: cigarettes Second hand tobacco smoke exposure: No Additional smoking assessment comments: Started 3-4mo ago Alcohol intake: current Drinks per week: 5 Substance use: never Substance use type: does not use Gender identity (if verbalized by the patient): Female Sexual Orientation (if Verbalized by the Patient): Straight or Heterosexual Exam Narrative: GENERAL: Well-appearing, well-nourished, and in no acute distress. HEAD: Normocephalic, atraumatic. EYES: PERRL and EOMI. ENT: Nares with some dried crusting on the left anteriorly, no rhinorrhea or epistaxis. Mild swelling and erythema to the septum as it connects to the philtrum, no ballotable abscess. Mucous membranes moist. No lesions to the external nose. SKIN: Warm, dry, no rash. NEURO: Alert and oriented x3. PSYCH: Normal mood and affect. Course Course Emergency Course: Patient does not feel she could tolerate attempted needle aspiration of the nose. Will give mupirocin ointment as well as oral Bactrim and she can follow-up with ENT. Vital Signs Vital signs: Vital Signs Temperature 98.2 F 08/12/21 11:23 Pulse Rate 81 08/12/21 11:23 Respiratory Rate 16 08/12/21 11:23 Blood Pressure 152/81 H 08/12/21 11:23 Pulse Oximetry 99 08/12/21 11:23 Temperature 98.2 F 08/12/21 11:23 Pulse Rate 81 08/12/21 11:23 Respiratory Rate 16 08/12/21 11:23 Blood Pressure 152/81 H 08/12/21 11:23 Pulse Oximetry 99 08/12/21 11:23 Medical Decision Making Vital Signs Vital Signs: Vital Signs Temperature 98.2 F 08/12/21 11:23 Pulse Rate 81 08/12/21 11:23 Respiratory Rate 16 08/12/21 11:23 Blood Pressure 152/81 H 08/12/21 11:23 Pulse Oximetry 99 08/12/21 11:23 Temperature 98.2 F 08/12/21 11:23 Pulse Rate 81 08/12/21 11:23 Respiratory Rate 16 08/12/21 11:23 Blood Pressure 152/81 H 08/12/21 11:23 Pulse Oximetry 99 08/12/21 11:23 Discharge Plan Discharge C
[2021-08-12 13:03] VITALS: BP 146/80; PULSE 80; RESP 16; TEMP 36.7; O2SAT 99
== END 2021-08-12 13:04 | disposition home or self-care (01) ==
PROVIDERS: Emergency Provider Emergency Medicine; PCP Family Medicine
DX: J34.0 Abscess, furuncle and carbuncle of nose (principal); F41.9 Anxiety disorder, unspecified; F32.A Depression, unspecified; K58.9 Irritable bowel syndrome, unspecified; Z87.442 Personal history of urinary calculi; F17.210 Nicotine dependence, cigarettes, uncomplicated
CPT/HCPCS: 99283

== ENCOUNTER 2022-03-12 09:15 | Outpatient (CLI) | payer MEDICARE, OTHER, SELFPAY ==
--- NOTE | ~2022-03-12 | MM_ITS ---
EXAMINATION: MM screening marie BI w callum HISTORY: Screening mammogram, family history of breast cancer in her mother and sister. TECHNIQUE: Craniocaudal and mediolateral oblique 3-D tomosynthesis images were obtained and synthetic 2-D images were generated. CAD analysis was submitted and interpreted. COMPARISON: 11/19/2020, 10/23/2020, 02/10/2019 BREAST PARENCHYMAL COMPOSITION: The breasts are heterogeneously dense, which may obscure small masses . FINDINGS: There is no suspicious mass, calcification, or architectural distortion to suggest malignan cy in either breast. There has been no suspicious interval change. IMPRESSION: 1. No mammographic evidence of malignancy. 2. Recommend routine screening mammography in one year. BI-RADS Category 1: Negative Reviewed, dictated and finalized at location A.
== END 2022-03-12 09:16 | disposition home or self-care (01) ==
PROVIDERS: PCP Family Medicine; Visit Provider Family Medicine
DX: Z12.31 Encounter for screening mammogram for malignant neoplasm of breast (principal)
CPT/HCPCS: 77063; 77067

== ENCOUNTER → 2022-07-31 11:32 | Outpatient (CLI) | payer MEDICARE, OTHER, SELFPAY ==
--- NOTE | ~2022-07-31 | XR_ITS ---
Cervical Spine: AP, lateral, open-mouth views Clinical History: Pain Findings: There is straightening of the normal cervical lordosis. No acute fracture seen. Minimal gra de 1 anterolisthesis of C4 over C5 present. There is mild degenerative disc change from C3 through C7 . There is facet joint and uncovertebral degenerative change at C3-C4 and C4-C5. Pre-vertebral soft t issues are unremarkable. Impression: Mild degenerative spondylosis, as detailed above. Reviewed, dictated and finalized at location M. [facility]UCK[facility] Impression: Mild degenerative spondylosis, as detailed above.
== END ==
PROVIDERS: PCP Family Medicine; Visit Provider Family Medicine
DX: M47.892 Other spondylosis, cervical region (principal)
CPT/HCPCS: 72040

== ENCOUNTER 2022-08-04 12:22 | Outpatient (CLI) | payer MEDICARE, OTHER, SELFPAY ==
--- NOTE | ~2022-08-04 | DEXA_ITS ---
Bone Density Report Name: SELVIN MOYA Age: 67 Sex: Female Ethnicity: White Date of : 1955 Indication: postmenopausal; screening for osteoporosis; prior fracture; Referring Provider: MARIELA DE LA PAZ Study: Bone densitometry was performed. Exam Date: August 04, 2022 Accession number: [id number] Bone Density: Region BMD T-score Z-score Classification AP Spine(L1-L4) 0.755 -2.7 -0.6 Osteoporosis Femoral Neck (Left) 0.496 -3.2 -1.4 Osteoporosis Total Hip (Left) 0.705 -1.9 -0.5 Osteopenia Femoral Neck (Right) 0.517 -3.0 -1.2 Osteoporosis Total Hip (Right) 0.671 -2.2 -0.8 Osteopenia Total Hip Mean 0.688 -2.1 -0.7 Osteopenia World Health Organization criteria for BMD impression classify patients as: Normal (T-score at or above -1.0), Osteopenia (T-score between -1.0 and -2.5), or Osteoporosis (T-score at or below -2.5). 10-year Fracture Risk: FRAX not reported because: Some T-score for Spine Total or Hip Total or Femoral Neck at or below -2.5 Clinical Information Provided by Patient: Has had a low trauma fracture Patient maximum height was 59 Menopause Age: 52 No regular weight bearing exercise Does not regularly consume dairy products Onset of menses at age 9 Number of children 3 Impression: The patient has established osteoporosis, based on the Left Femoral Neck T-score and the existence of a prior fracture. The patient has risk factors, including: previous fracture. Discussion: HIGH RISK OF FRACTURE. BONE DENSITY IS UNDESIRABLY LOW AT ONE OR MORE SKELETAL SITES, CONSISTENT WITH POSTMENOPAUSAL OSTEOPOROSIS. This patient's lowest T-score, in a patient who has previously fractured, meets the World Health Organization's (WHO) criteria for severe osteoporosis. In untreated patients, the risk of osteoporotic fracture increases approximately two-fold for each 1.0 SD decrease in T-score. Low bone density is not the only risk factor for fracture; also consider factors such as patient's age, frailty or poor health, risk of falling, risk of injury, previous osteoporotic fracture, family history of osteoporosis, cigarette smoking, low body weight, etc. Not everyone with low bone mineral density has osteoporosis; osteomalacia and other metabolic bone disorders should also be considered. Patients who have osteoporosis should be evaluated for specific diseases and conditions (secondary causes) that may cause or contribute to bone loss. The [place] Association of Clinical Endocrinologists (AACE) and National Osteoporosis Foundation (NOF) recommend pharmacologic intervention for all postmenopausal women whose T-score is in this range. The patient should follow a healthful lifestyle (good nutrition with adequate calcium and vitamin D, and appropriate weight-bearing exercise). Follow-Up: Consider a
== END 2022-08-04 12:23 | disposition home or self-care (01) ==
PROVIDERS: PCP Family Medicine; Visit Provider Family Medicine
DX: Z78.0 Asymptomatic menopausal state (principal); M81.0 Age-related osteoporosis without current pathological fracture; M85.852 Other specified disorders of bone density and structure, left thigh; M85.851 Other specified disorders of bone density and structure, right thigh
CPT/HCPCS: 77080

== ENCOUNTER 2022-11-05 00:25 | Day surgery (SDC) | payer MEDICARE, OTHER, SELFPAY ==
--- NOTE | 2022-10-26 13:42 | PC.NURSE ---
Report to the Outpatient Waiting Room, entrance under the green pavilion located off [facility], at time _0600 on date __11/05/22 . Planned Procedure Time: _729 . Time changes happen often and if your time is changed the preop area will call you the afternoon before. - You and your visitor will be asked to self-screen and do not enter if you have any COVID symptoms. - A mask is optional within the hospital at this time. Patients may have clear liquids (water, carbonated beverages, clear teas, apple juice) until 3 hours prior to surgery with a maximum of 20 ounces. - No food from midnight until time of surgery - Infants may have breast milk until 4 hours before surgery, infant formula 6 hours prior to surgery. - Children will be allowed to drink immediately following surgery. If applicable, please bring a bottle or sippy cup to assist with drinking. Juice, water, soda, and popsicles are readily available. For infants on formula, please bring formula the day of surgery. Pacifiers are allowed. Take the following medications with a SIP of water the morning of surgery: ____BUPROPION,SERTRALINE,VENLAFAXINE DO NOT STOP ANY OF YOUR OTHER PRESCRIPTION MEDICATIONS PRIOR TO SURGERY ?EXCEPT THE FOLLOWING Medications to discontinue per physician NONE Please no make-up, nail kinyarwanda, hairspray, perfume, deodorant, or body powder the day of surgery. No jewelry (including any body piercings) or valuables the day of surgery, leave them at home. Please take a shower or bath the night before, or the morning of, surgery with an antibacterial soap. Wear comfortable, loose fitting clothing. Children are encouraged to wear pajamas. - Jewelry must be removed prior to entering the operating room. Rings and piercings that are not removed may be cut off. - The hospital will not accept responsibility for valuables. - Please leave all valuables, including medications, at home the day of surgery. If you are going home after surgery, a licensed peg driver must drive you home. - NO public transportation without another adult if you receive anesthesia. - We recommend that an adult stay with you for 24 hours following discharge. - We also recommend that you do not drive, make important decision, drink alcoholic beverages, or take any drugs that were not prescribed by your health care provider for at least 24 hours after your discharge time. For Pediatric surgeries, we recommend two adults accompany the child home. Follow any additional instructions given to you from your surgeon. If you or anyone in your household have experienced Covid symptoms in the past week, please notify your surgeon or the nurse liaison at the phone number below for possible testing. Telephone instructions given to __PATIENT and asked if any additional questions and then verbalized understanding. Patient advised to call surgeon office or pre surgery nurse liaison [phone] if any additional questions.
[2022-10-26 13:46] VITALS: BMI 24.3
--- NOTE | 2022-11-05 07:08 | WPDHPUPDATE1 ---
History and Physical Update Update Date/Time: 11/05/22 07:08 History and Physical has been reviewed, including an updated exam of the patient. There are NO changes in the patient's condition. Risks, benefits, and alternatives have been discussed and questions answered. Patient agrees to proceed with procedure.
--- NOTE | 2022-11-05 07:17 | WPDANESEPPF ---
Anes - Initial Pre Proc Eval Procedure: Operation Date: 11/05/22 07:30 Proposed Procedures p Right Open Carpal Tunnel Release - Kory Lopez MD Date/Time: 11/05/22 07:17 Surgeon: Kory Lopez MD Pre Op Diagnosis: right carpal tunnel syndrome Patient Data Age: 67 Gender: F Height: 1.5 m Weight: 54.5 kg Allergies Allergy/AdvReac Type Severity Reaction Status Date / Time Opioids - Morphine Analogues AdvReac Vomiting Verified 10/26/22 13:31 Home Medications Medication Instructions Recorded Confirmed Type loperamide 1 tablet PO PRN PRN Diarrhea 11/18/19 10/26/22 History bupropion HCl 300 mg 24 hr tablet, 300 mg PO QAM 07/31/22 10/26/22 History extended release sertraline 100 mg tablet 100 mg PO BID 07/31/22 10/26/22 History venlafaxine 37.5 mg 37.5 mg PO DAILY 07/31/22 10/26/22 History capsule,extended release 24 hr Patient hx anesthesia problems: none Family hx anesthesia problems: none Results Review: All pre-operative results and documents have been reviewed as part of the pre-operative evaluation. [facility] Past Medical History Medical History Anxiety Depression IBS (irritable bowel syndrome) Kidney stone on right side Surgical History Surgical History Hx of lithotripsy Family History Family History Father Family history of coronary artery disease, Onset Age: 64 Mother Family history of malignant neoplasm of breast in first degree relative Sibling Family history of malignant neoplasm of breast in first degree relative Social History Social History (Updated 07/31/22 @ 10:39 by Marj Milton [facility]) Years smoked: 12 Smoking status: Current every day smoker Tobacco type: cigarettes Second hand tobacco smoke exposure: No Additional smoking assessment comments: SOCIAL SMOKER Alcohol intake: current Drinks per week: 7 Alcohol use details: WINE Substance use: never Substance use type: does not use Lack of Transportation: No Lack of Food: Never True Current Housing: I Have Housing Concerned About Future Housing: No Difficulty Paying Gas/Electric Bills: No Difficulty Paying for Meds: No Currently Unemployed: No Education: Trade/Vocational Certificate Difficulty w/ Childcare or Family Care: No Living arrangements: with family Occupation/Education: retired Gender identity (if verbalized by the patient): Female Sexual Orientation (if Verbalized by the Patient): Straight or Heterosexual Spiritual care concerns: No Anes - Eval Final PreProcedure Day of Procedure 11/05/22 07:17 Patient weight: normal Heart: regular rate and rhythm Lungs: clear to auscultation Neurological: alert and oriented Last oral intake: >/= 8 hours Emergent: no Anesthetic plan: proceed Anesthesia type and monitoring: general GIVS and standard monitoring Results Review: All pre-operative results and documents have been reviewed as part of the pre-operative evaluation. Informed Consent: The patient's anesthetic plan and its attendant risks and benefits were discussed with the patient/family/POA. Questions were solicited and answers provided to the satisfaction of the patient/family/POA.
[2022-11-05 07:19] VITALS: BP 128/73; PULSE 70; RESP 14; TEMP 36; O2SAT 100
[2022-11-05] MEDS: LACTATED RINGERS 1,000 ML 30 ML IV CONT (07:24)
[2022-11-05] MEDS: LIDO 1%/EPINEPHRINE/PF 1:200,000 30 ML VIAL 5 ML XX (07:48)
[2022-11-05 07:56] VITALS: BP 109/70; PULSE 73; RESP 16; O2SAT 98
--- NOTE | 2022-11-05 08:06 | W.PM.PROC2 ---
Procedure Note - Detailed Date of Procedure 11/05/22 Pre-op Diagnosis right carpal tunnel syndrome Post-op Diagnosis Same Procedure Performed Right open carpal tunnel release Surgeon Kory Lopez MD Anesthesia MAC Description of Procedure The right carpal tunnel wound was marked on the patient with her consent in the holding area. She was taken to the operating room where she was placed supine on the operating table. She was given some IV sedation. The right upper extremity was prepped and draped in usual fashion. The surgical site was marked and locally infiltrated with 1% lidocaine with epinephrine. The tourniquet was inflated 250 mmHg. The incision was made as marked under 3 point retraction the palmar aponeurosis and the transverse retinaculum were incised with # 15 blade . Again under 3 point retraction the ligament was divided distally and proximally to completely release it. No unusual anatomy was noted. The skin wound was closed with interrupted 5 0 nylon suture. The usual bandage was applied. She is discharged home with prescription for hydrocodone 5/325 5. Estimated Blood Loss 0 Drains No Packing No Pathology None sent Complications No immediate complications Condition Stable Disposition Same day
[2022-11-05 08:25] VITALS: BP 108/71; PULSE 72; RESP 20
[2022-11-05 08:50] VITALS: BP 110/72; PULSE 70; RESP 20
== END 2022-11-05 08:53 | disposition home or self-care (01) ==
PROVIDERS: PCP Family Medicine; Visit Provider Plastic Surgery
PROC: (CPT 64721; principal; 2022-11-05 07:30)
DX: G56.01 Carpal tunnel syndrome, right upper limb (principal)
CPT/HCPCS: 64721; A9270; J2250; J2405; J2704; J3010; J7120

== ENCOUNTER 2023-01-20 02:30 | Day surgery (SDC) | payer MEDICARE, OTHER, SELFPAY ==
--- NOTE | 2023-01-13 15:13 | PC.NURSE ---
Report to the Outpatient Waiting Room, entrance under the green pavilion located off [facility], at time _0600 on date __01/20/23 . Planned Procedure Time: __0730 . Time changes happen often and if your time is changed the preop area will call you the afternoon before. - You and your visitor will be asked to self-screen and do not enter if you have any COVID symptoms. - A mask is optional within the hospital at this time. Patients may have clear liquids (water, carbonated beverages, clear teas, apple juice) until 3 hours prior to surgery with a maximum of 20 ounces. - No food from midnight until time of surgery - Infants may have breast milk until 4 hours before surgery, formula 6 hours prior to surgery. - Children will be allowed to drink immediately following surgery. If applicable, please bring a bottle or sippy cup to assist with drinking. Juice, water, soda, and popsicles are readily available. For infants on formula, please bring formula the day of surgery. Pacifiers are allowed. Take the following medications with a SIP of water the morning of surgery: ____BUPROPION,VENLAFAXINE DO NOT STOP ANY OF YOUR OTHER PRESCRIPTION MEDICATIONS PRIOR TO SURGERY ?EXCEPT THE FOLLOWING Medications to discontinue per physician ALL VITAMINS/SUPPLEMENTS 3 DAYS PRE OP.LAST DOSE 01/16/23 Please no make-up, nail mexican, hairspray, perfume, deodorant, or body powder the day of surgery. No jewelry (including any body piercings) or valuables the day of surgery, leave them at home. Please take a shower or bath the night before, or the morning of, surgery with an antibacterial soap. Wear comfortable, loose fitting clothing. Children are encouraged to wear pajamas. - Jewelry must be removed prior to entering the operating room. Rings and piercings that are not removed may be cut off. - The hospital will not accept responsibility for valuables. - Please leave all valuables, including medications, at home the day of surgery. If you are going home after surgery, a licensed route sales delivery drivers supervisor must drive you home. - NO public transportation without another adult if you receive anesthesia. - We recommend that an adult stay with you for 24 hours following discharge. - We also recommend that you do not drive, make important decision, drink alcoholic beverages, or take any drugs that were not prescribed by your health care provider for at least 24 hours after your discharge time. For Pediatric surgeries, we recommend two adults accompany the child home. Follow any additional instructions given to you from your surgeon. If you or anyone in your household have experienced Covid symptoms in the past week, please notify your surgeon or the nurse liaison at the phone number below for possible testing. Telephone instructions given to ___PATIENT and asked if any additional questions and then verbalized understanding. Patient advised to call surgeon office or pre surgery nurse liaison [phone] if any additional questions.
[2023-01-13 15:17] VITALS: BMI 24.0
--- NOTE | 2023-01-19 14:40 | WPDANESEPPF ---
Anes - Initial Pre Proc Eval Procedure: Operation Date: 01/20/23 07:30 Proposed Procedures p Left Open Carpal Tunnel Release - Kory Lopez MD Date/Time: 01/19/23 14:40 Surgeon: Kory Lopez MD Pre Op Diagnosis: left carpal tunnel syndrome Patient Data Age: 67 Gender: F Height: 1.5 m Weight: 53.99 kg Allergies Allergy/AdvReac Type Severity Reaction Status Date / Time Opioids - Morphine Analogues AdvReac Vomiting Verified 01/13/23 15:04 Home Medications Medication Instructions Recorded Confirmed Type loperamide 1 tablet PO PRN PRN Diarrhea 11/18/19 01/20/23 History bupropion HCl 300 mg 24 hr tablet, 300 mg PO QAM 07/31/22 01/20/23 History extended release venlafaxine 37.5 mg 37.5 mg PO DAILY 07/31/22 01/20/23 History capsule,extended release 24 hr sertraline 100 mg tablet 200 mg PO QHS 11/27/22 01/20/23 History cholecalciferol (vitamin D3) 50 50 mcg PO DAILY 01/13/23 01/20/23 History mcg (2,000 unit) tablet progesterone micronized 100 mg 100 mg PO HS 01/13/23 01/20/23 History capsule Patient hx anesthesia problems: none Family hx anesthesia problems: none Results Review: All pre-operative results and documents have been reviewed as part of the pre-operative evaluation. [facility], LAT[facility] Past Medical History Medical History (Updated 01/19/23 @ 14:40 by Bartolo Bower DO) Anxiety Depression Diverticulosis IBS (irritable bowel syndrome) Kidney stone on right side Surgical History Surgical History Hx of lithotripsy Family History Family History Father Family history of coronary artery disease, Onset Age: 64 Mother Family history of malignant neoplasm of breast in first degree relative Sibling Family history of malignant neoplasm of breast in first degree relative Social History Social History Years smoked: 12 Smoking status: Current every day smoker Tobacco type: cigarettes Second hand tobacco smoke exposure: No Additional smoking assessment comments: SOCIAL SMOKER Alcohol intake: current Drinks per week: 7 Alcohol use details: WINE Substance use: never Substance use type: does not use Lack of Transportation: No Lack of Food: Never True Current Housing: I Have Housing Concerned About Future Housing: No Difficulty Paying Gas/Electric Bills: No Difficulty Paying for Meds: No Currently Unemployed: No Education: Trade/Vocational Certificate Difficulty w/ Childcare or Family Care: No Living arrangements: with family Occupation/Education: retired Gender identity (if verbalized by the patient): Female Sexual Orientation (if Verbalized by the Patient): Straight or Heterosexual Spiritual care concerns: No Anes - Eval Final PreProcedure Day of Procedure 01/19/23 14:40 Patient weight: normal Heart: regular rate and rhythm Lungs: clear to auscultation and normal air movement Airway: Mallampati scale class II Neurological: alert and oriented Last oral intake: >/= 8 hours ASA classification: III Emergent: no Anesthetic plan: proceed Anesthesia type and monitoring: general GIVS and standard monitoring Results Review: All pre-operative results and documents have been reviewed as part of the pre-operative evaluation. Informed Consent: The patient's anesthetic plan and its attendant risks and benefits were discussed with the patient/family/POA. Questions were solicited and answers provided to the satisfaction of the patient/family/POA.
[2023-01-20 06:16] VITALS: BP 136/73; PULSE 75; RESP 20; TEMP 36.3; O2SAT 99
[2023-01-20] MEDS: LACTATED RINGERS 1,000 ML 30 ML IV CONT (06:45)
--- NOTE | 2023-01-20 07:07 | WPDHPUPDATE1 ---
History and Physical Update Update Date/Time: 01/20/23 07:07 History and Physical has been reviewed, including an updated exam of the patient. There are NO changes in the patient's condition. Risks, benefits, and alternatives have been discussed and questions answered. Patient agrees to proceed with procedure.
[2023-01-20] MEDS: LIDO 1%/EPINEPHRINE 1:100,000 50 ML VIAL 6 ML INFILTRATE (07:26)
[2023-01-20] MEDS: BACITRACIN OINTMENT 15 GM TUBE 1 APPLIC TOPICAL (07:50)
[2023-01-20] MEDS: KETOROLAC 15 MG/ML VIAL (*BKC) IV PUSH (07:54)
[2023-01-20 07:58] VITALS: BP 102/65; PULSE 83; RESP 14; O2SAT 95
[2023-01-20 08:25] VITALS: BP 102/65; PULSE 83; RESP 20
[2023-01-20 08:50] VITALS: BP 103/69; PULSE 78; RESP 20
--- NOTE | 2023-01-20 09:32 | W.PM.PROC2 ---
Procedure Note - Detailed Date of Procedure 01/20/23 Pre-op Diagnosis left carpal tunnel syndrome Post-op Diagnosis Same Procedure Performed Left open carpal tunnel release Surgeon Kory Lopez MD Anesthesia MAC Description of Procedure The patient is and left carpal tunnel site was marked on her wrist in the holding area with her consent. She was then taken to the operating room where she was placed supine on the operating table. She was given IV sedation and eventually an LMA was placed. The left upper extremity was prepped and draped in usual fashion. The site was marked for the incision and locally infiltrated with 1% lidocaine with epinephrine. The extremity was exsanguinated and the tourniquet inflated to 250 mmHg. The incision was made as marked. Blunt dissection revealed the palmar aponeurosis. This and the transverse retinaculum were incised with a 15. Blade. Under 3 point retraction the ligament was divided distally and proximally to completely release it. There was no unusual anatomy noted. The wound was closed with the interrupted 5 0 nylon suture and small bandage applied as usual. She is discharged from the operating room stable condition she has a instructions to use nonsteroidal anti-inflammatory medication for pain control. Estimated Blood Loss 2 Tourniquet Time 2 Drains No Packing No Pathology None sent Complications No immediate complications Condition Stable Disposition Same day
== END 2023-01-20 08:57 | disposition home or self-care (01) ==
PROVIDERS: PCP Family Medicine; Visit Provider Plastic Surgery
PROC: (CPT 64721; principal; 2023-01-20 07:30)
DX: G56.02 Carpal tunnel syndrome, left upper limb (principal); K58.9 Irritable bowel syndrome, unspecified; F41.9 Anxiety disorder, unspecified; F32.A Depression, unspecified; F17.210 Nicotine dependence, cigarettes, uncomplicated
CPT/HCPCS: 64721; A9270; J1885; J2405; J2704; J7120

== ENCOUNTER 2023-04-08 12:34 | Emergency (ER) | payer MEDICARE, OTHER, SELFPAY ==
[2023-04-08 12:46] VITALS: BP 139/80; PULSE 91; RESP 18; TEMP 36.5; O2SAT 99
--- NOTE | 2023-04-08 13:05 | ED.FEMALEGU ---
HPI - Female Genitourinary General Chief complaint: Urogenital-Female Stated complaint: uti symptoms Time Seen by Provider: 04/08/23 13:06 Source: patient and RN notes reviewed Mode of arrival: ambulatory Limitations: no limitations History of Present Illness HPI Narrative: 67-year-old female presented for complaint of urinary frequency, urgency, and dysuria for over 1 week. Endorses nausea today. she was treated for yeast infection 1 week ago, itching has resolved but continues to have burning at all times. Denies flank pain, abdominal pain, vomiting, hematuria, fevers or chills. Hx kidney stones and lithotripsy 2019 per pt. Related Data Home Medications Medication Instructions Recorded Confirmed bupropion HCl 300 mg 24 hr tablet, 300 mg PO QAM 07/31/22 04/08/23 extended release venlafaxine 37.5 mg 37.5 mg PO DAILY 07/31/22 04/08/23 capsule,extended release 24 hr sertraline 100 mg tablet 200 mg PO QHS 11/27/22 04/08/23 cholecalciferol (vitamin D3) 50 50 mcg PO DAILY 01/13/23 04/08/23 mcg (2,000 unit) tablet progesterone micronized 100 mg 100 mg PO HS 01/13/23 04/08/23 capsule Allergies Allergy/AdvReac Type Severity Reaction Status Date / Time Opioids - Morphine Analogues AdvReac Vomiting Verified 03/31/23 14:17 Review of Systems Review of Systems: CONSTITUTIONAL: Denies body aches, fever, chills, or sweats. CARDIOVASCULAR: Denies chest pain, palpitations, or edema. RESPIRATORY: Denies cough or dyspnea. GASTROINTESTINAL: Denies abdominal pain, vomiting, or diarrhea. GENITOURINARY: Reports dysuria, frequency, urgency, denies hematuria, flank pain SKIN: Denies rash, itching, or wounds. MUSCULOSKELETAL: Denies back pain or myalgia. [facility] Past Medical History Medical History Anxiety Depression Diverticulosis IBS (irritable bowel syndrome) Kidney stone on right side Surgical History Surgical History Hx of lithotripsy Family History Family History Father Family history of coronary artery disease, Onset Age: 64 Mother Family history of malignant neoplasm of breast in first degree relative Sibling Family history of malignant neoplasm of breast in first degree relative Social History Social History Years smoked: 12 Smoking status: Current every day smoker Tobacco type: cigarettes Second hand tobacco smoke exposure: No Additional smoking assessment comments: SOCIAL SMOKER Alcohol intake: current Drinks per week: 7 Alcohol use details: WINE Substance use: never Substance use type: does not use Lack of Transportation: No Lack of Food: Never True Current Housing: I Have Housing Concerned About Future Housing: No Difficulty Paying Gas/Electric Bills: No Difficulty Paying for Meds: No Currently Unemployed: No Education: Trade/Vocational Certificate Difficulty w/ Childcare or Family Care: No Living arrangements: with family Occupation/Education: retired Gender identity (if verbalized by the patient): Female Sexual Orientation (if Verbalized by the Patient): Straight or Heterosexual Spiritual care concerns: No Comments At time of signature, I have reviewed and agree with nursing past medical, surgical, social and family history unless otherwise noted. Please see nursing chart for further information. There is no relevant family history pertinent to the presenting complaint Exam Narrative: GENERAL: Well-appearing and in no acute distress. HEAD: Normocephalic EYES: EOMI. . ENT: Mucous membranes pink and moist. NECK: Normal AROM. Supple. CHEST: No respiratory distress. Clear to auscultation. HEART: Regular rate and rhythm. ABDOMEN: Soft, nondistended, normal active bowel sounds. Mild tenderness to bila
== END 2023-04-08 13:29 | disposition home or self-care (01) ==
PROVIDERS: Emergency Provider Nurse Practitioner Family; PCP Family Medicine
DX: R30.0 Dysuria (principal); F17.210 Nicotine dependence, cigarettes, uncomplicated; F41.9 Anxiety disorder, unspecified; F32.A Depression, unspecified; Z87.442 Personal history of urinary calculi
CPT/HCPCS: 81003; 87086; 87088; 99213; G0463

== ENCOUNTER → 2023-04-27 07:35 | Outpatient (CLI) | payer MEDICARE, OTHER, SELFPAY ==
--- NOTE | ~2023-04-27 | US_ITS ---
Abdominal Sonogram: Real-time sonographic imaging of the abdomen was performed. Clinical History: Abdominal pain Findings: The liver appears mildly echogenic, with no evidence of solid mass lesion or bile duct dil atation. Small hepatic cyst noted. Main portal vein demonstrates normal direction of flow. The spleen is normal in size without evidence of focal lesion. The gallbladder is well distended, and appears normal with no evidence of gallstone or wall thickening. The common bile duct measures 4 mm. The vis ualized pancreas, aorta, and IVC are unremarkable. The right kidney measures 9.4 cm in length and th e left kidney measures 10.1 cm. There is no hydronephrosis or renal calculus. Impression: Probable mild diffuse fatty infiltration of liver. Reviewed, dictated and finalized at location . [facility] Impression: Probable mild diffuse fatty infiltration of liver.
== END ==
PROVIDERS: PCP Family Medicine; Visit Provider Nurse Practitioner
DX: R10.9 Unspecified abdominal pain (principal)
CPT/HCPCS: 76700

== ENCOUNTER 2023-09-16 10:44 | Outpatient (CLI) | payer MEDICARE, SELFPAY ==
--- NOTE | ~2023-09-16 | US_ITS ---
US pelvic complete w TV 09/16/2023 11:08 Indication: EXAMINATION: US pelvic complete w TV DATE: 09/16/2023 11:08 INDICATION: Postmenopausal bleeding for 3 months Comparison:No prior studies for comparison. TECHNIQUE: Multiple transabdominal and endovaginal sonographic images of the pelvis performed. FINDINGS: The uterus measures 7.6 x 5.4 x 3.3 cm. The endometrial complex measures 5 mm. There is flu id in the endometrium and cervix. The ovaries are not visualized. There is no free fluid in the pelvis. There are no abnormal masses seen on either side. IMPRESSION: 1. Thickened endomtrial complex. The differential diagnosis includes endometrial hyperplasia, polyp a nd carcinoma. Biopsy is recommended. Reviewed, dictated and finalized at location L. IMPRESSION: 1. Thickened endomtrial complex. The differential diagnosis includes endometria l hyperplasia, polyp and carcinoma. Biopsy is recommended.
== END 2023-09-16 10:45 ==
LOC: GOSHIMG 10:45
PROVIDERS: PCP Family Medicine; Visit Provider Obstetrics & Gynecology
DX: N95.0 Postmenopausal bleeding (principal)
CPT/HCPCS: 76830; 76856

== ENCOUNTER 2023-10-14 13:56 | Outpatient (CLI) | payer MEDICARE, SELFPAY ==
--- NOTE | ~2023-10-14 | MM_ITS ---
EXAMINATION: MM screening marie BI w callum HISTORY: Screening mammogram TECHNIQUE: Craniocaudal and mediolateral oblique 3-D tomosynthesis images were obtained and synthetic 2-D images were generated. CAD analysis was submitted and interpreted. COMPARISON: 03/12/2022 bilateral screening mammogram 11/19/2020 diagnostic left mammogram and left complete breast ultrasound examination 10/23/2020 bilateral screening mammogram BREAST PARENCHYMAL COMPOSITION: The breasts are extremely dense, which lowers the sensitivity of mamm ography. FINDINGS: There is no evidence of suspicious mass, calcification, or architectural distortion to sugg est malignancy in either breast. There has been no suspicious interval change. IMPRESSION: 1. No mammographic evidence of malignancy. 2. Recommend routine screening mammography in one year. BI-RADS Category 1: Negative Reviewed, dictated and finalized at location A.
== END 2023-10-14 13:57 | disposition home or self-care (01) ==
LOC: ANHIMG 13:59
PROVIDERS: PCP Family Medicine; Visit Provider Family Medicine
DX: Z12.31 Encounter for screening mammogram for malignant neoplasm of breast (principal)
CPT/HCPCS: 77063; 77067

== ENCOUNTER 2023-11-19 01:29 | Day surgery (SDC) | payer MEDICARE, SELFPAY ==
--- NOTE | 2023-11-05 15:02 | PC.NURSE ---
Report to the Outpatient Waiting Room, entrance under the green pavilion located off [facility], at time __6:30 AM on date ___11/19/23____. Planned Procedure Time8:30AM . Time changes happen often and if your time is changed the preop area will call you the afternoon before. - You and your visitor will be asked to self-screen and do not enter if you have any COVID symptoms. - A mask is optional within the hospital at this time. Patients may have clear liquids (water, carbonated beverages, clear teas, apple juice) until 3 hours prior to surgery( 5:30 AM) with a maximum of 20 ounces. - No food from midnight until time of surgery - Infants may have breast milk until 4 hours before surgery, infant formula 6 hours prior to surgery. - Children will be allowed to drink immediately following surgery. If applicable, please bring a bottle or sippy cup to assist with drinking. Juice, water, soda, and popsicles are readily available. For infants on formula, please bring formula the day of surgery. Pacifiers are allowed. Take the following medications with a SIP of water the morning of surgery: __BUPROPION,VENLAFAXINE DO NOT STOP ANY OF YOUR OTHER PRESCRIPTION MEDICATIONS PRIOR TO SURGERY ?EXCEPT THE FOLLOWING Medications to discontinue per physician ___HOLD ALL VITAMINS AND SUPPLEMENT 3 DAYS PRE OP .LAST DOSE 11/15/23 Please no make-up, nail greenlandic, hairspray, perfume, deodorant, or body powder the day of surgery. No jewelry (including any body piercings) or valuables the day of surgery, leave them at home. Please take a shower or bath the night before, or the morning of, surgery with an antibacterial soap. Wear comfortable, loose fitting clothing. Children are encouraged to wear pajamas. - Jewelry must be removed prior to entering the operating room. Rings and piercings that are not removed may be cut off. - The hospital will not accept responsibility for valuables. - Please leave all valuables, including medications, at home the day of surgery. If you are going home after surgery, a licensed driver manager must drive you home. - NO public transportation without another adult if you receive anesthesia. - We recommend that an adult stay with you for 24 hours following discharge. - We also recommend that you do not drive, make important decision, drink alcoholic beverages, or take any drugs that were not prescribed by your health care provider for at least 24 hours after your discharge time. Follow any additional instructions given to you from your surgeon. If you or anyone in your household have experienced Covid symptoms in the past week, please notify your surgeon or the nurse liaison at the phone number below for possible testing. Telephone instructions given to ___PATIENT and asked if any additional questions and then verbalized understanding. Patient advised to call surgeon office or pre surgery nurse liaison [phone] if any additional questions.
[2023-11-05 15:07] VITALS: BMI 23.4
[2023-11-19 06:42] VITALS: BP 136/69; PULSE 71; RESP 18; TEMP 36.2; O2SAT 100
[2023-11-19] MEDS: ACETAMINOPHEN 500 MG TABLET 1000 MG PO (06:59)
[2023-11-19] MEDS: LACTATED RINGERS 1,000 ML 30 ML IV CONT (07:00)
--- NOTE | 2023-11-19 07:06 | WPDANESEPPF ---
Anes - Initial Pre Proc Eval Procedure: Operation Date: 11/19/23 08:30 Proposed Procedures p Hysteroscopy Dilation and Curettage with Removal of Endometrial Lesions if Necessary - Alexander Puri MD Date/Time: 11/19/23 07:06 Surgeon: Alexander Puri MD Pre Op Diagnosis: thickened endometrial stripe Patient Data Age: 68 Gender: F Height: 1.5 m Weight: 52 kg Last Vital Signs Temp 36.2 C L 11/19/23 06:42 Pulse 71 11/19/23 06:42 Resp 18 11/19/23 06:42 BP 136/69 11/19/23 06:42 Pulse Ox 100 11/19/23 06:42 O2 Del Method Room Air 11/19/23 06:42 Allergies Allergy/AdvReac Type Severity Reaction Status Date / Time Opioids - Morphine Analogues AdvReac Vomiting Verified 11/19/23 06:41 Home Medications Medication Instructions Recorded Confirmed Type bupropion HCl 300 mg 24 hr tablet, 300 mg PO QAM 07/31/22 11/10/23 History extended release venlafaxine 37.5 mg 37.5 mg PO DAILY 07/31/22 11/10/23 History capsule,extended release 24 hr sertraline 100 mg tablet 200 mg PO QHS 11/27/22 11/10/23 History cholecalciferol (vitamin D3) 50 50 mcg PO DAILY 01/13/23 11/10/23 History mcg (2,000 unit) tablet calcium 600 mg capsule 600 mg PO DAILY 11/05/23 11/10/23 History loratadine 10 mg tablet 10 mg PO PRN PRN IBS 11/05/23 11/10/23 History omeprazole 20 mg capsule,delayed 20 mg PO PRN PRN Heartburn 11/05/23 11/10/23 History release rosuvastatin 5 mg tablet 5 mg PO HS 11/05/23 11/10/23 History Patient hx anesthesia problems: none Family hx anesthesia problems: none Results Review: All pre-operative results and documents have been reviewed as part of the pre-operative evaluation. [facility] Past Medical History Medical History Anxiety delivery delivered Depression Diverticulosis Endometriosis IBS (irritable bowel syndrome) Kidney stone on right side Vaginal bleeding Surgical History Surgical History H/O exploratory laparotomy H/O tubal ligation History of back surgery Hx of lithotripsy S/P laparoscopic surgery Family History Family History Father Family history of coronary artery disease, Onset Age: 64 Mother Family history of malignant neoplasm of breast in first degree relative Sibling Family history of malignant neoplasm of breast in first degree relative Social History Social History Years smoked: 12 Smoking status: Former smoker Tobacco type: cigarettes Second hand tobacco smoke exposure: No Smoking end date: 03/21/23 Additional smoking assessment comments: SOCIAL SMOKER Alcohol intake: current Drinks per week: 1 Alcohol use details: WINE Substance use: never Substance use type: does not use Lack of Transportation: No Lack of Food: Never True Current Housing: I Have Housing Concerned About Future Housing: No Difficulty Paying Gas/Electric Bills: No Difficulty Paying for Meds: No Currently Unemployed: No Education: Trade/Vocational Certificate Difficulty w/ Childcare or Family Care: No Living arrangements: with family Occupation/Education: retired Gender identity (if verbalized by the patient): Female Sexual Orientation (if Verbalized by the Patient): Straight or Heterosexual Spiritual care concerns: No Anes - Eval Final PreProcedure Day of Procedure 11/19/23 07:06 Patient weight: normal Heart: regular rate and rhythm Lungs: clear to auscultation Airway: Mallampati scale class II Neurological: alert and oriented Last oral intake: >/= 8 hours ASA classification: III Emergent: no Anesthetic plan: proceed Anesthesia type and monitoring: general GIVS and standard monitoring Results Review: All pre-operative results and documents have been reviewed as part of the pre-oper
--- NOTE | 2023-11-19 07:14 | WPDHPUPDATE1 ---
History and Physical Update Update Date/Time: 11/19/23 07:14 History and Physical has been reviewed, including an updated exam of the patient. There are NO changes in the patient's condition. Risks, benefits, and alternatives have been discussed and questions answered. Patient agrees to proceed with procedure. Will perform dilation and curettage and hysteroscopy and removal of lesion if present.
[2023-11-19] MEDS: ceFAZolin 2 GM/D5W 50 ML 2 GM/50 ML BAG IVPB (08:09)
[2023-11-19] MEDS: LIDOCAINE HCL 1% LOCAL INJ 20 ML VIAL 10 ML INFILTRATE (08:17)
--- NOTE | 2023-11-19 08:25 | P.OP_ITS ---
Procedure Note - Detailed Date of Procedure 11/19/23 Pre-op Diagnosis thickened endometrial stripe Post-op Diagnosis Same (Postmenopausal bleeding) Procedure Performed Dilation and curettage hysteroscopy diagnostic. Surgeon Alexander Puri MD Anesthesia MAC and Local Indications Patient with post menopausal bleeding, on HRT, endometrial lining mildly thickened on ultrasound. Findings Uterus sound to 7.5 cm. The uterine cavity was atrophic. Minimal tissue obtained on curettage. Description of Procedure After form consent was obtained patient was taken to the operating room and adequate IV sedation was administered. She was placed in high lithotomy position and prepped and draped in sterile fashion. Attention was turned to the vagina. Speculum inserted. Single-tooth tenaculum placed on anterior lip of the cervix. 1% lidocaine was injected at the cervical vaginal interface at 2, 5, 8 and 10 oclock position. The small dilator was inserted. The uterine sound was inserted and sounded to 7.5 cm. The hysteroscope was inserted with hydrodilation. The cavity appeared atrophic. No lesions seen. A curettage was then performed and there was minimal tissue obtained. The single-tooth tenac ulum was removed. Hemostasis was noted. The speculum was removed. The patient tolerated procedure well. Estimated Blood Loss 5 Drains No Packing No Pathology Yes ( Scant endometrial curettings) Complications No immediate complications Condition Stable Disposition PACU [facility] Billing Surgery - Charge Forward: Surgery Billing
[2023-11-19 08:28] VITALS: BP 109/63; PULSE 74; RESP 14; O2SAT 100
[2023-11-19 09:00] VITALS: BP 137/59; PULSE 62; RESP 16
== END 2023-11-19 09:29 | disposition home or self-care (01) ==
PROVIDERS: PCP Family Medicine; Visit Provider Obstetrics & Gynecology
PROC: 0U5B8ZZ Destruction of Endometrium, Via Natural or Artificial Opening Endoscopic (ICD-10-PCS; CPT 58563; principal; 2023-11-19 08:30)
DX: N95.0 Postmenopausal bleeding (principal); F41.9 Anxiety disorder, unspecified; F32.A Depression, unspecified; Z87.891 Personal history of nicotine dependence
CPT/HCPCS: 58558; 88305; A9270; J0690; J2704; J7120

== ENCOUNTER 2024-03-16 11:19 | Outpatient (CLI) | payer MEDICARE, SELFPAY ==
--- NOTE | ~2024-03-16 | MMUS_ITS ---
EXAMINATION: MM diagnostic marie LT w callum, US breast LT complete HISTORY: Palpable left breast abnormality TECHNIQUE: Additional 3-D tomosynthesis images of the left breast were performed and synthetic 2-D im ages were generated. CAD analysis was submitted and interpreted. High resolution complete left breast ultrasound was performed. COMPARISON: Comparison to multiple prior studies sequentially, with oldest reviewed study dated 02/10. BREAST PARENCHYMAL COMPOSITION: Dense: The breasts are extremely dense, which lowers the sensitivity of mammography. FINDINGS: MAMMOGRAPHIC FINDINGS: The left breast is stable. No new masses, calcifications or architectural distortion to suggest enrike kingsley. ULTRASOUND: Complete US of all 4 quadrants of the left breast/s and retroareolar region was reviewed. Normal hete rogeneous echotexture without focal solid or cystic mass. IMPRESSION: 1. No evidence for malignancy in the left breast. 2. Routine yearly screening mammogram and regular clinical breast examination are recommended. BI-RADS Category 1: Negative Reviewed, dictated and finalized at location B. IMPRESSION: 1. No evidence for malignancy in the left breast. 2. Routine yearly screening mammogram and regular clinical breast examination a re recommended. BI-RADS Category 1: Negative
== END 2024-03-16 11:20 | disposition home or self-care (01) ==
PROVIDERS: PCP Family Medicine; Visit Provider Obstetrics & Gynecology
DX: R92.30 Dense breasts, unspecified (principal); R92.8 Other abnormal and inconclusive findings on diagnostic imaging of breast
CPT/HCPCS: 76641; 77061; 77065; G0279

== ENCOUNTER 2024-04-13 13:37 | Outpatient (CLI) | payer MEDICARE, SELFPAY ==
--- NOTE | ~2024-04-13 | MR_ITS ---
EXAMINATION: MR knee LT wo con DATE: 04/13/2024 14:31 INDICATION: Meniscal tear TECHNIQUE: Magnetic resonance imaging (MRI) of the left knee was performed without intravenous contra st. Sequences included coronal PD-weighted FSE, coronal PD-weighted FS FSE, sagittal T2-weighted FSE , sagittal PD-weighted FS FSE and axial PD weighted fat saturated FSE. COMPARISON: None. FINDINGS: Medial compartment: Medial meniscus is normal. Partial-thickness chondral ulceration and fissuring without degenerative s ubchondral changes along the anterior to central weightbearing medial femoral condyle. Cartilage claudio g the medial tibial plateau appears relatively preserved. Lateral compartment: Small longitudinal horizontal tear extending to the inferior articular surface at the body of the lat eral meniscus. Articular cartilage is normal. Patellofemoral compartment: Deep chondral ulceration with mild underlying subarticular edema-like signal change centered along th e patellar apical ridge and extending into the inferior aspect of the adjacent medial and lateral pat ellar facets. Mild partial-thickness chondral fissuring without degenerative subchondral changes at t he lateral trochlea. Small region of deep chondral ulceration with tiny focus of subarticular edema-l delma signal change at the superomedial aspect of the medial trochlea. Ligaments and tendons: Anterior and posterior cruciate ligaments are normal. The medial collateral ligament and fibular rebekah ateral ligament complex are normal. Patellar tendon is normal. Mild distal quadriceps tendinopathy. T he visualized medial and lateral hamstring tendons as well as the iliotibial band are normal. Fluid: Physiologic amount of fluid in the joint space. No loose osteochondral bodies identified. Osseous/other: Bone alignment is normal. No fracture or pathologic marrow replacing process. IMPRESSION: 1. Small longitudinal horizontal tear at the body of the lateral meniscus. 2. 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 3. Mild osteoarthritis in medial compartment with moderate grade chondromalacia along the weight bear ing medial femoral condyle. Reviewed, dictated and finalized at location A. IMPRESSION: 1. Small longitudinal horizontal tear at the body of the lateral meniscus. 2. Moderate patellofemoral osteoarthritis with high-grade chondromalacia primar beck at the patella with small region at the medial trochlea. 3. Mild osteoarthritis in medial compartment with moderate grade chondromalacia along the weight bearing medial femoral condyle.
--- NOTE | ~2024-04-13 | MR_ITS ---
EXAMINATION: MR knee RT wo con DATE: 04/13/2024 14:16 INDICATION: Meniscal tear TECHNIQUE: Magnetic resonance imaging (MRI) of the right knee was performed without intravenous contr ast. Sequences included coronal PD-weighted FSE, coronal PD-weighted FS FSE, sagittal T2-weighted FS E, sagittal PD-weighted FS FSE and axial PD weighted fat saturated FSE. COMPARISON: None. FINDINGS: Medial compartment: Medial meniscus is normal. Mild partial-thickness chondral ulceration along the anterior to central w eightbearing medial femoral condyle without degenerative subchondral changes. Lateral compartment: Lateral meniscus is essentially absent, likely either torn and displaced were chronically degenerated . There is extensive full thickness chondral ulceration along the majority of the anterior to central weightbearing lateral femoral condyle and along enlarged portion of the central to posterior lateral tibial plateau. There is subarticular low signal intensity in relation along with early remodeling o f the denuded cortices. Patellofemoral compartment: Deep chondral ulceration along portions of the mid to inferior medial patellar facet and at the infer ior third of the lateral patellar facet with tiny focus of subarticular T1 signal change at the later al patellar facet. There is partial thickness chondral fissuring without degenerative subchondral ester nges along the inferomedial aspect of the medial trochlea. Ligaments and tendons: Anterior and posterior cruciate ligaments are normal. The medial collateral ligament and fibular rebekah ateral ligament complex are normal. The extensor mechanism is normal. The visualized medial and later al hamstring tendons as well as the iliotibial band are normal. Fluid: Moderate-sized knee joint effusion. 11 x 6 mm loose osteochondral body posterior to the lateral side of the posterior root of the medial meniscus and the posterior cruciate ligament. Osseous/other: 5 mm lateral patellar subluxation. No fracture or pathologic marrow replacing process. IMPRESSION: 1. Lateral meniscal tear with essentially complete loss of meniscal tissue and severe secondary osteo arthritis with extensive high-grade chondromalacia in the lateral compartment. 2. Mild medial and patellofemoral osteoarthritis, the former with moderate grade chondromalacia in th e bilateral with moderate and high-grade chondromalacia. 3. Moderate-sized right knee joint effusion. Reviewed, dictated and finalized at location A. IMPRESSION: 1. Lateral meniscal tear with essentially complete loss of meniscal tissue and severe secondary osteoarthritis with extensive high-grade chondromalacia in the lateral compartment. 2. Mild medial and patellofemoral osteoarthritis, the former with moderate grad e chondromalacia in the bilateral with moderate and high-grade chondromalacia. 3. Moderate-sized right knee joint effusion.
== END 2024-04-13 13:38 | disposition home or self-care (01) ==
LOC: ANHIMG 13:42
PROVIDERS: PCP Family Medicine
DX: S83.281A Other tear of lateral meniscus, current injury, right knee, initial encounter (principal); S83.282A Other tear of lateral meniscus, current injury, left knee, initial encounter; X58.XXXA Exposure to other specified factors, initial encounter; M25.461 Effusion, right knee; M17.0 Bilateral primary osteoarthritis of knee
CPT/HCPCS: 73721

== ENCOUNTER → 2024-09-05 11:52 | Outpatient (REF) | payer MEDICARE, SELFPAY ==
--- OUTSIDE RECORDS SUMMARY | 2024-09-05 13:26 | XMS_ITS | Clinical Summary ---
Author Organization [facility] [address] Address [address] [place] [address] Care Team Providers Care Car Rider Name Role Phone Kamille Montalvo DO Primary Care Provider [phone] Allergies Active Allergy Reactions Criticality Noted Date Comments Codeine Rash Medium 04/24/2019 Morphine Rash Medium 04/24/2019 Opioids - Morphine Analogues Nausea And Vomiting,Rash Medi um 10/29/2011 rash Medications sertraline HCl (SERTRALINE ORAL) Take by mouth Active loperamide HCl (LOPERAMIDE ORAL) Take by mouth Active buPROPion XL (WELLBUTRIN XL) 300 mg 24 hr tablet Take 1 tablet (300 mg total) by mouth every morning 10/29/2023 Active estrogens-methy lTESTOSTERone (EEMT,COVARYX) 0.625-1.25 mg per tablet Take 1 tablet by mouth daily 01/06/2024 Active progesterone (PROMETRIUM) 100 mg capsule Take 1 capsule (100 mg total) by mouth daily 10/19/2023 Active rosuvastatin (CRESTOR) 5 mg tablet Take 1 tablet (5 mg total) by mouth daily 12/24/2023 Active sertraline (ZOLOFT) 100 mg tablet Take 1 tablet (100 mg total) by mouth daily Active venlafaxine XR (EFFEXOR-XR) 37.5 mg 24 hr capsule Take 1 capsule (37.5 mg total) by mouth every morning 10/29/2023 Active omeprazole (PriLOSEC) 20 mg capsule Take 1 capsule (20 mg total) by mouth as needed Active cholecalciferol (VITAMIN D-3) 2000 unit tablet Take 1 tablet (2,000 Units total) by mouth daily Active Active Problems Problem Noted Date Diagnosed Date Incontinence of feces 01/23/2024 Irritable bowel syndrome wit h both constipation and diarrhea 01/23/2024 Surgical History Surgery Date Site/Laterality Comments BACK SURGERY EXTRACORPOREAL SHOCK WAVE LITHOTRIPSY 2019 SECTION Medical History Medical History Date Comments Kidney stone Depression Social History Tobacco Use Types Packs/Day Years Used Date Smoking Tobacco: Former Cigarettes 1 - 1987 Passive Smoke Exposure: Past Smokeless Tobacco: Never Tobacco Cessation:Counseling Given: Not Answered AUDIT-C Answer Date Recorded Q1: How often do you have a drink containing alc ohol? 2-4 times a month 01/20/2024 Q2: How many drinks containi ng alcohol do you have on a typical day when you are drinking? 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 Gender Identity Not on file Sexual Orientation Not on file Obstetrics History Last Filed Vital Signs Vital Sign Reading Time Taken Comments Blood Pressure 149/83 01/20/2024 1:59 PM CDT Pulse 80 01/20/2024 1:59 PM CDT Temperature 36.9 C (98.4 F) 01/20/2024 1:59 PM CDT Respiratory Rate - - Oxygen Saturation 98% 01/20/2024 1:59 PM CDT Inhaled Oxygen Concentration - - Weight 52.3 kg (115 lb 6.4 oz) 01/20/2024 1:59 P M CDT Height 149.9 cm (4' 11 ) 01/20/2024 1:59 PM CDT Body Mass Index 23.31 01/20/2024 1:59 PM CDT Plan of Treatment Health Maintenance Due Date Last Done Comments Breast Cancer Screening-Mammogram 1953 Colon Cancer Screening-Colonoscopy 1953 Depression Screening 1953 Fall Risk Assessment 1953 Hepatitis C Screening 1953 Osteoporosis Screening-Bone Density Scan 1953 Hepatitis B Screening 1971 Pneumococcal vaccine 65+ (1 of 1 - PCV) 2003 Zoster Vaccine (1 of 2) 2003 Well Visit 65+ 2018 Covid-19 Vaccine (5 - 2023-2 5 season) 2024 05/20/2022, 06/24/2021, 09/10/2020, Additional history exists Influenza Vaccine (#1) 2024 2023 DTaP/Tdap/Td Vaccine (2 - Td or Tdap) 03/20/2032 03/20/2022 Insurance MEDICARE [employer] BENEFITS MEDICARE [facility] Care Teams Car Rider Relationship Specialty Start Date End Date Kamille Montalvo DO [facility] [address] [place] [address] [place] [id number] PCP - General Family Medicine 12/24/23
--- OUTSIDE RECORDS SUMMARY | 2024-09-05 13:26 | XMS_ITS | Clinical Summary ---
Author Organization [facility] Address [address] [facility] Attn: [place] [address] Care Team Providers Care Pearl Restorer Name Role Phone Gamal Rose DO Primary Care Provider Unavailabl e Allergies Active Allergy Reactions Criticality Noted Date Comments Opioids - Morphine Analogues Nausea and Vomiting Low 10/29/2011 Family History Medical History Relation Name Comments Heart Disease Brother Heart Disease Father Cancer Mother Cancer Sister Relation Name Status Comments Brother Father Mother Sister Social History Tobacco Use Types Packs/Day Years Used Date Smoking Tobacco: Former Alcohol Use Standard Drinks/Week Comments Yes 0 (1 standard drink = 0.6 oz pur e alcohol) Comments Unknown Sex and Gender Information Value Date Recorded Sex Assigned at Not on file 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 Gender Identity Not on file Sexual Orientation Not on file Plan of Treatment Health Maintenance Due Date Last Done Comments DTAP/TDAP/TD VACCINES (1 - Tdap) 1972 BREAST CANCER SCREENING 1993 COLORECTAL SCREENING 1998 Colorectal Cancer Screening 1998 FIT-DNA Q 3 years 1998 FIT/FOBT Q 1 year 1998 Flex Sig/CT Colonography Q 5 years 1998 PNEUMOCOCCAL VACCINE 50+ YEARS (1 of 1 - PCV) 05/10/20 03 ZOSTER VACCINE (1 of 2) 2003 OSTEOPOROSIS SCREENING 2018 INFLUENZA VACCINE (#1) 2024 RSV VACCINE (60+ or ) (1 - 1-dose 75+ series) 2028 Care Teams Pearl Restorer Relationship Specialty Start Date End Date Gamal Rose DO NO ADDRESS ON FILE PCP - General Obstetrics and Gynecology 10/27/11
--- OUTSIDE RECORDS SUMMARY | 2024-09-05 13:26 | XMS_ITS | Encounter Summary ---
Author Organization [facility] Care Team Providers Care Acute Care Nurse Practitioner Name Role Phone Guido Gonzalez MD Primary Care Provider [phone] Tom Pat MD Primary Care Provider Kamille Montalvo DO Primary Care Provider [phone] Encounter Details Date Type Department Care Team (Latest Contact Info) Description 01/14/2017 Orders Only [facility] CLINCON[facility] ProviderParisa MD [address] [place] [id number] Social History Tobacco Use Types Packs/Day Years Used Date Smoking Tobacco: Never Assessed Comments Unknown Sex and Gender Information Value Date Recorded Sex Assigned at Not on file 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 Historical Provider Final Res ult documented in this encounter Visit Diagnoses Not on filedocumented in this encounter Care Teams Acute Care Nurse Practitioner Relationship Specialty Start Date End Date Guido Gonzalez MD PCP - General 11/18/18 05/09/19 Tom Pat MD [address] [place], [place] [id number] PCP - General 05/10/19 12/23/23 Kamille Montalvo DO [facility] [facility] [address] [place] [address] PCP - General Family Medicine 12/24/23 documented as of this encounter
--- OUTSIDE RECORDS SUMMARY | 2024-09-05 13:26 | XMS_ITS | Referral Summary ---
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
--- OUTSIDE RECORDS SUMMARY | 2024-09-05 13:26 | XMS_ITS | Patient Health Record ---
Author Organization [facility] Address [address] [place] [address] Care Team Providers Care Bell Captain Name Role Phone Nathan Reyes Lashell Unavailable [phone] Kuldip Rowe Unavailable [phone] Rashida Boo Unavailable [phone] Migration, Provider Unavailable Unavailable Allergies Allergen (clinical drug ingredient) Drug/Non Drug Allergy documented on EMR Reaction Allergy Type Onset Date Status morphine MORPHOLINE ANALOGUES (uncoded) Unknown Allergy 11/08/2023 Active Reason For Referral No Information Medications Medication SIG (Take, Route, Frequency, Duration) Notes Start Date End Date Status Fluconazole 150 MG Oral 11/08/2023 Active Imodium A-D 2 MG 1 tablet as needed Orally Four times a day As needed PRN Active Sertraline HCl 100 MG 2 tablets Oral Onc e a day for 90 days Active Rosuvastatin Calcium 5 MG Oral 11/08/2023 Active buPROPion HCl ER (XL) 300 MG 1 tablet ev lucero morning Oral Once a day for 90 days Active Progesterone Micronized 100 MG Oral 11/08/2023 Active Omeprazole 20 MG Oral 11/08/2023 Ac tive Cyclobenzaprine HCl 5 MG Oral 11/08/2023 Active Triamcinolone Acetonide 0.1% External 11/08/2023 Active Immunizations Vaccine Route Administration Date Status Comme nts Pfizer Biontech Covid-19 Vac cine 2nd dose Unknown 08/20/2020 Administered Pfizer Biontech Covid-19 Vac cine 2nd dose Unknown 09/10/2020 Administered Pfizer Biontech Covid-19 Vac cine 2nd dose Unknown 06/24/2021 Administered Influenza, unspecified formulation Unknown 03/22/2023 A dministered Social History Tobacco Use: Social History Observation Description Date Details (start date - stop date) Former Smoker NA - 03/22/2023 Sex Assigned At : Social History Observation Description Sex Assigned At Female Household Question Answer Notes Marital status: Number of adults in household: 2 Number of children in household: 0 3 children grown 1 daughter and 2 sons Level of education: finished high school 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 Yes with Men only Tobacco Control (Standard) Question Answer Notes Tobacco use: Former smoker When did you stop smoking? 03/22/2023 How long has it been since y ou last smoked? 1-5 years Additional Findings: Tobacco user Light cigarett e smoker (1-9 cigs/day) Additional Findings: Tobacco non-user Current no nsmoker AUDIT-C (Standard) Question Answer Notes Did you have a drink contain ing alcohol in the past year? Yes How often did you have six o r more drinks on one occasion in the past year? 2 to 4 times a month (2 points) How many drinks did you have on a typical day when you were drinking in the past year? 1 or 2 drinks (0 point) How often did you have a dri nk containing alcohol in the past year? 2 to 3 times a week (3 points) Points 5 Interpretation Positive Section Notes: Substance UseDo you or have you ever smoked tobacco?: Former smoker (Notes: Quit March)How many years have you smoked tobacco?: 10At what age did you start smoking tobacco?: 55How much tobacco do you smoke?: 1 pack per weekDo you or have you ever used any other forms of tobacco or nicotine?: NoDo you or have you ever used e-cigarettes or vape?: Never used electronic cigarettesDo you or have you ever used smokeless tobacco?: Never used smokeless tobaccoHow much tobacco do you chew?: noneWhat was the date of your most recent tobacco screening?: 09/06/2023Has tobacco cessation counseling been provided?: YesOn what date was tobacco cessation counseling provided?: 06/29/2022What is your level of alcohol consumption?: ModerateHow many years have you consumed alcohol?: 47Have you ever been counseled for unhealthy alcohol use?: NoDo you use any illicit or recreational drugs?: NoWhich illicit or recreational drugs have you used?: NoneHave you used IV drugs?: NoWhat is your level of caffeine consumption?: OccasionalEducation and OccupationWhat is the highest grade or level of school you have completed or the highest degree you have received?: Some college, no degreeAre you currently employed?: NoWho is your employer?: RetiredMarriage and SexualityWhat is your relationship status?: MarriedAre you sexually active?: NoDo you use protection during sex?: NoHow many children do you have?: 3Home and EnvironmentAre you a caregiver?: NoDo you have any siblings?: 2 (Notes: Siblings are )Do you have smoke and carbon monoxide detectors in your home?: YesAre there any smokers in your house?: NoAre there any guns present in your home?: YesDiet and ExerciseWhat type of diet are you following?: RegularLifestyleDo you feel stressed (tense, restless, nervous, or anxious, or unable to sleep at night)?: Only a littleAdvance DirectiveDo you have an advance directive?: NoDo you have a medical power of facilities locator?: NoPublic Health and TravelHave you been to an area known to be high risk for COVID-19?: NoActivities of Daily LivingAre you able to care for yourself?: YesAre you blind or do you have difficulty seeing?: NoAre you deaf or do you have serious difficulty hearing? : NoDo you have difficulty concentrating, remembering or making decisions?: YesDo you have difficulty walking or climbing stairs?: NoDo you have difficulty dressing or bathing?: NoDo you have difficulty doing errands alone?: NoAre you able to walk?: Yes: walks without restrictionsDo you have transportation difficulties?: NoOtherDrugs Abused: NoneEducation: 2 Year CollegeFamily history of heart disease?: YesHigh blood pressure: NoHigh Cholesterol: YesHigh number of sexual partners: NoHistory of inconsistent/no condom use: NoMarital status: MarriedPast steroid/HgH use?: NoGender Identity and LGBTQ IdentityGender identity: Identifies as FemaleAssigned sex at : FemaleSexual orientation: Straight or heterosexual Problems Problem Type SNOMED Code ICD Code Onset Dates Problem Status W/U Status Risk Notes Problem Mild recurrent major depression (29318259) Major depressive disorder, recurrent, mild (F33.0) 4 Active confirmed Problem Moderate recurrent major depression (94596265) Major depressive disorder, recurrent, moderate (F33.1) Active confirmed Problem Generalized anxiety disorder (87173548) Generalized anxiety disorder (F41.1) 4 Active confirmed Problem Posttraumatic stress disorder (02056751) Post-traumatic stress disorder, chronic (F43.12) 4 Active confirmed Problem Recurrent hypersomnia (567877188) Recurrent hypersomnia (G47.13) 4 Active confirmed Problem Amnesia (30982659) Other amnesia (R41.3) 4 Active confirmed Vital Signs Heart Rate 90 /min 05/09/2024 Respiratory Rate 18 /min 12/08/2023 Height-cm 149.86 cm 05/09/2024 Blood pressure diastolic 85 mm Hg 05/09/2024 Weight-kg 52.89 kg 05/09/2024 Height 59.00 in 05/09/2024 Blood pressure systolic 152 mm Hg 05/09/2024 Weight 116.6 lbs 05/09/2024 BMI 23.55 kg/m2 05/09/2024 Encounters Encounter Location Date Provider Diagnosis [facility] [address] [address] 09/06/2023 Rashida Boo Major depressive disorder, recurrent, mild F33.0 ; Generalized anxiety disorder F41.1 ; Post-traumatic stress disorder, chronic F43.12 ; Other amnesia R41.3 and Recurrent hypersomnia G47.13 [facility] [address] [facility] [address] [place] [address] 10/18/2023 Lashell Reyes Major depressive disorder, recurrent, mild F33.0 ; Post-traumatic stress disorder, chronic F43.12 ; Major depressive disorder, recurrent, moderate F33.1 and Generalized anxiety disorder F41.1 [facility] [address] [place] [address] 11/08/2023 Lashell Ryees Generalized anxiety disorder F41.1 ; Post-traumatic stress disorder, chronic F43.12 and Major depressive disorder, recurrent, mild F33.0 [facility] [address] [facility] [address] [place] [address] 12/06/2023 Lashell Reyes Generalized anxiety disorder F41.1 ; Post-traumatic stress disorder, chronic F43.12 and Major depressive disorder, recurrent, mild F33.0 [facility] [address] [facility] [address] [place] [address] 12/08/2023 Rashida Boo Major depressive disorder, recurrent, mild F33.0 ; Generalized anxiety disorder F41.1 ; Post-traumatic stress disorder, chronic F43.12 and Recurrent hypersomnia G47.13 [facility] [address] [facility] [address] [place] [address] 03/09/2024 Rashida Boo Major depressive disorder, recurrent, mild F33.0 ; Generalized anxiety disorder F41.1 ; Post-traumatic stress disorder, chronic F43.12 ; Recurrent hypersomnia G47.13 and Other amnesia R41.3 [facility] [address] [facility] [address] [place] [address] 05/09/2024 Rashida Boo Other amnesia R41.3 ; Major depressive disorder, recurrent, moderate F33.1 ; Generalized anxiety disorder F41.1 ; Major depressive disorder, recurrent, mild F33.0 ; Post-traumatic stress disorder, chronic F43.12 and Recurrent hypersomnia G47.13 [facility] [address] [address] 06/19/2024 Rashida Boo Other amnesia R41.3 ; Major depressive disorder, recurrent, moderate F33.1 ; Generalized anxiety disorder F41.1 ; Major depressive disorder, recurrent, mild F33.0 ; Post-traumatic stress disorder, chronic F43.12 and Recurrent hypersomnia G47.13 [facility] [address] [place] [address] 07/14/2024 Lashell Reyes Major depressive disorder, recurrent, moderate F33.1 ; Generalized anxiety disorder F41.1 and Post-traumatic stress disorder, chronic F43.12 [facility] [address] [place] [address] 08/17/2024 Lashell Reyes Major depressive disorder, recurrent, mild F33.0 ; Generalized anxiety disorder F41.1 and Post-traumatic stress disorder, chronic F43.12 [facility], [facility] [address] [facility] [address] [place] [address] 11/06/2023 Provider Migration [facility], [facility] [address] [facility] [address] [place] [address] 11/07/2023 Provider Migration [facility], [facility] [address] [facility] [address] [place] [address] 03/15/2024 Rashida Boo Major depressive disorder, recurrent, mild F33.0 and Other amnesia R41.3 [facility], [facility] [address] [facility] [address] [place] [address] 03/15/2024 Rashida Boo Major depressive disorder, recurrent, mild F33.0 and Other amnesia R41.3 [facility], [facility] [address] [facility] [address] [place] [address] 03/15/2024 Kuldip Rowe Major depressive disorder, recurrent, mild F33.0 and Other amnesia R41.3 [facility], [facility] [address] [facility] [address] [place] [address] 12/06/2023 Lashell Reyes [facility], [facility] [address] [address] 01/06/2024 Lashell Reyes [facility], [facility] [address] [address] 03/14/2024 Lashell Reyes Assessments Encounter Date Diagnosis (ICD Code) Assessment Notes Treatment Notes Treatment Clinical Notes Section Notes 09/06/2023 Major depressive disorder, recurrent, mild (ICD-10 - F33.0) 09/06/2023 Generalized anxiety disorder (ICD-10 - F41.1) 09/06/2023 Post-traumat ic stress disorder, chronic (ICD-10 - F43.12) 09/06/2023 Recurrent hypersomnia (ICD-10 - G47.13) 09/06/2023 Other amnesia (ICD-10 - R41.3) 10/18/2023 Major depressive disorder, recurrent, mild (ICD-10 - F33.0) 10/18/2023 Major depressive disorder, recurrent, moderate (ICD-10 - F33.1) 10/18/2023 Generalized anxiety disorder (ICD-10 - F41.1) 10/18/2023 Post-traumat ic stress disorder, chronic (ICD-10 - F43.12) 11/08/2023 Major depressive disorder, recurrent, mild (ICD-10 - F33.0) 11/08/2023 Generalized anxiety disorder (ICD-10 - F41.1) 11/08/2023 Post-traumat ic stress disorder, chronic (ICD-10 - F43.12) 12/06/2023 Generalized anxiety disorder (ICD-10 - F41.1) Assessment copied from Tre 08/19/22. Lala transferred [employer] within [facility] for a new approach (last receiving counseling 11 months ago). She is a current pt of Rashida Boo at [facility] and takes prescribed Zoloft, Wellbutrin, and Effexor for tx of HEATH, CPTSD, and Moderate Recurrent Major Depression. 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 He is well liked in the community but he is different at home. Sister in law is aware of this dynamic and is a source of support. He loses his temper and breaks stuff. Literally everything is my fault. Pt is well educated on narcissism. We show dogs but I drive separately because he makes me feel so anxious. Pt has 3 children from her first marriage. She has a close relationship with her children but they put up boundaries and have asked for Lala to visit them alone. Her has 2 children from second marriage. Denies physical abuse within the marriage. Safety plan discussed. No suicidal ideations. No issues with ETOH dependency. Father passed when she was 17 years old. Relationship with mother was turbulent. My mom would put the kids against each other. She was emotionally unstable and lived a horrible childhood. Lala is the youngest of 3 (both siblings are ) and grew up in [facility] and [place], [place]. Lala shared, I worry I have early onset dementia . Doctors have completed a baseline exam. On a specialized diet for gastrointestinal issues. She is seeing a specialist for IBS. A drink mix is helping. Lala would like to work on improving her self worth. Goals discussed and developed. 12/06/2023 Post-traumat ic stress disorder, chronic (ICD-10 - F43.12) Assessment copied from Tre 08/19/22. Lala transferred [employer] within [facility] for a new approach (last receiving counseling 11 months ago). She is a current pt of Rashida Boo at [facility] and takes prescribed Zoloft, Wellbutrin, and Effexor for tx of HEATH, CPTSD, and Moderate Recurrent Major Depression. 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 He is well liked in the community but he is different at home. Sister in law is aware of this dynamic and is a source of support. He loses his temper and breaks stuff. Literally everything is my fault. Pt is well educated on narcissism. We show dogs but I drive separately because he makes me feel so anxious. Pt has 3 children from her first marriage. She has a close relationship with her children but they put up boundaries and have asked for Lala to visit them alone. Her has 2 children from second marriage. Denies physical abuse within the marriage. Safety plan discussed. No suicidal ideations. No issues with ETOH dependency. Father passed when she was 17 years old. Relationship with mother was turbulent. My mom would put the kids against each other. She was emotionally unstable and lived a horrible childhood. Lala is the youngest of 3 (both siblings are ) and grew up in [place], [place]. Lala shared, I worry I have early onset dementia . Doctors have completed a baseline exam. On a specialized diet for gastrointestinal issues. She is seeing a specialist for IBS. A drink mix is helping. Lala would like to work on improving her self worth. Goals discussed and developed. 12/08/2023 Major depressive disorder, recurrent, mild (ICD-10 - F33.0) 1. Mild recurrent major depression- Sertraline 200 mg at nightWellbutrin XL 300 mg daily Effexor ER 37.5 MG DAILY IN AM MONITOR B/P educated on all medications, benefits, side effects and risk, and educated on depression, anxiety, and mood d/o and educated on compliance of medications, appointment's, continue therapy discussion with patient about course of treatment and patient instructions. schedule therapy Lashell educated on serotonin syndrome schedule to see PCP this week and labs F33.0: Major depressive disorder, recurrent, mildstablebupropion HCl XL 300 mg 24 hr tablet, extended release - Take 1 tablet(s) every day by oral route in the morning for 90 days. Qty: (90) tablet Refills: 0 Pharmacy: [facility] #[id number] ER 37.5 mg capsule,extended release 24 hr - Take 1 capsule(s) every day by oral route in the morning for 90 days. Qty: (90) capsule Refills: 0 Pharmacy: [facility] #[id number] 2. Generalized anxiety disorder-Sertraline 200 mg at emtbqO29.1: Generalized anxiety disorderstablesertr jessica 100 mg tablet - Take 2 tablet(s) every day by oral route at bedtime for 90 days. Qty: (180) tablet Refills: 0 Pharmacy: [facility] #[id number] 3. Chronic post-traumatic stress disorder- stable schedule kilqpsbC69.12: Post-traumatic stress disorder, chronic 4. Memory impairment-memory testing amoukuxycV78.3: Other amnesia 5. Recurrent hypersomnia-HX Sleep study and declined [id number]: Recurrent hypersomnia, Preventing Depression From Coming Back: Care Instructions material was published, Learning About Depression Screening material was published, Learning About Depression material was published 1. Mild recurrent major depression- Sertraline 200 mg at night Wellbutrin XL 300 mg daily Effexor ER 37.5 MG DAILY IN AM MONITOR B/P educated on all medications, benefits, side effects and risk, and educated on depression, anxiety, and mood d/o and educated on compliance of medications, appointment's, continue therapy discussion with patient about course of treatment and patient instructions. schedule therapy Lashell educated on serotonin syndrome schedule to see PCP this week and labs F33.0: Major depressive disorder, recurrent, mild stable bupropion HCl XL 300 mg 24 hr tablet, extended release - Take 1 tablet(s) every day by oral route in the morning for 90 days. Qty: (90) tablet Refills: 0 Pharmacy: [facility] #[id number] venlafaxine ER 37.5 mg capsule,extended release 24 hr - Take 1 capsule(s) every day by oral route in the morning for 90 days. Qty: (90) capsule Refills: 0 Pharmacy: [facility] #[id number] 2. Generalized anxiety disorder- Sertraline 200 mg at night F41.1: Generalized anxiety disorder stable sertraline 100 mg tablet - Take 2 tablet(s) every day by oral route at bedtime for 90 days. Qty: (180) tablet Refills: 0 Pharmacy: [facility] #[id number] 3. Chronic post-traumatic stress disorder- stable schedule therapy F43.12: Post-traumatic stress disorder, chronic 4. Memory impairment-memor y testing completed R41.3: Other amnesia 5. Recurrent hypersomnia- HX Sleep study and declined CPAP IMPROVED G47.13: Recurrent hypersomnia 12/08/2023 Generalized anxiety disorder (ICD-10 - F41.1) Generalized Anxiety Disorder: Care Instructions material was published, Learning About Generalized Anxiety Disorder material was published, Learning About Anxiety Disorders material was published 1. Mild recurrent major depression- Sertraline 200 mg at night Wellbutrin XL 300 mg daily Effexor ER 37.5 MG DAILY IN AM MONITOR B/P educated on all medications, benefits, side effects and risk, and educated on depression, anxiety, and mood d/o and educated on compliance of medications, appointment's, continue therapy discussion with patient about course of treatment and patient instructions. schedule therapy Lashell educated on serotonin syndrome schedule to see PCP this week and labs F33.0: Major depressive disorder, recurrent, mild stable bupropion HCl XL 300 mg 24 hr tablet, extended release - Take 1 tablet(s) every day by oral route in the morning for 90 days. Qty: (90) tablet Refills: 0 Pharmacy: [facility] #[id number] venlafaxine ER 37.5 mg capsule,extended release 24 hr - Take 1 capsule(s) every day by oral route in the morning for 90 days. Qty: (90) capsule Refills: 0 Pharmacy: [facility] #[id number] 2. Generalized anxiety disorder- Sertraline 200 mg at night F41.1: Generalized anxiety disorder stable sertraline 100 mg tablet - Take 2 tablet(s) every day by oral route at bedtime for 90 days. Qty: (180) tablet Refills: 0 Pharmacy: [facility] #[id number] 3. Chronic post-traumatic stress disorder- stable schedule therapy F43.12: Post-traumatic stress disorder, chronic 4. Memory impairment-memor y testing completed R41.3: Other amnesia 5. Recurrent hypersomnia- HX Sleep study and declined CPAP IMPROVED G47.13: Recurrent hypersomnia 03/09/2024 Major depressive disorder, recurrent, mild (ICD-10 - F33.0) Preventing Depression From Coming Back: Care Instructions material was published, Learning About Depression material was published, Learning About Depression Screening material was published, Learning About How to Get Help During a Mental Health Crisis material was published, Depression Treatment: Care Instructions material was published 1. Mild recurrent major depression- Sertraline 200 mg at night Wellbutrin XL 300 mg daily Effexor ER 37.5 MG DAILY IN AM MONITOR B/P educated on all medications, benefits, side effects and risk, and educated on depression, anxiety, and mood d/o and educated on compliance of medications, appointment's, continue therapy discussion with patient about course of treatment and patient instructions. schedule therapy Lashell educated on serotonin syndrome educated patient she is on higher doses of Sertraline and Wellbutrin schedule to see PCP and labs seeing GI 2. Generalized anxiety disorder- Sertraline 200 mg at night 3. Chronic post-traumatic stress disorder- stable schedule therapy- patient reported has not been in therapy recently 4. Memory impairment-memor y testing completed hx reported forgetful words and what doing at times discuss and educated on medication for memory will not try Aricept r/t patient has chronic diarrhea - IBS-D discuss and educated - will add Namenda 5 mg twice a day 5. Recurrent hypersomnia- HX Sleep study and declined CPAP IMPROVED 03/09/2024 Generalized anxiety disorder (ICD-10 - F41.1) Generalized Anxiety Disorder: Care Instructions material was published, Learning About Generalized Anxiety Disorder material was published, Learning About Anxiety Disorders material was published, Generalized Anxiety Disorder: Care Instructions material was published, Learning About Generalized Anxiety Disorder material was published, Learning About Anxiety Disorders material was published 1. Mild recurrent major depression- Sertraline 200 mg at night Wellbutrin XL 300 mg daily Effexor ER 37.5 MG DAILY IN AM MONITOR B/P educated on all medications, benefits, side effects and risk, and educated on depression, anxiety, and mood d/o and educated on compliance of medications, appointment's, continue therapy discussion with patient about course of treatment and patient instructions. schedule therapy Lashell educated on serotonin syndrome educated patient she is on higher doses of Sertraline and Wellbutrin schedule to see PCP and labs seeing GI 2. Generalized anxiety disorder- Sertraline 200 mg at night 3. Chronic post-traumatic stress disorder- stable schedule therapy- patient reported has not been in therapy recently 4. Memory impairment-memor y testing completed hx reported forgetful words and what doing at times discuss and educated on medication for memory will not try Aricept r/t patient has chronic diarrhea - IBS-D discuss and educated - will add Namenda 5 mg twice a day 5. Recurrent hypersomnia- HX Sleep study and declined CPAP IMPROVED 03/15/2024 Major depressive disorder, recurrent, mild (ICD-10 - F33.0) 03/15/2024 Major depressive disorder, recurrent, mild (ICD-10 - F33.0) 05/09/2024 Major depressive disorder, recurrent, moderate (ICD-10 - F33.1) 1. Mild recurrent major depression- Sertraline 200 mg at night- discuss may start to decrease dose if tolerate Cymbalta from GI provider Wellbutrin XL 300 mg daily NO refill needed today Will stop Effexor ER 37.5 MG DAILY IN AM- GI procider wants to add Cymbalta for IBS-D - GI will prescribe Cymbalta reviewed GI last note --scan to chart MONITOR B/P educated on all medications, benefits, side effects and risk, and educated on depression, anxiety, and mood d/o and educated on compliance of medications, appointment's, continue therapy discussion with patient about course of treatment and patient instructions. schedule therapy Lashell educated on serotonin syndrome educated patient she is on higher doses of Sertraline and Wellbutrin seen PCP and labs seeing GI 2. Generalized anxiety disorder- Sertraline 200 mg at night 3. Chronic post-traumatic stress disorder- stable schedule therapy- patient reported has not been in therapy recently 4. Memory impairment-memor y testing completed hx reported forgetful words and what doing at times discuss and educated on medication for memory will not try Aricept r/t patient has chronic diarrhea - IBS-D discuss and educated - patient stopped Namenda 5 mg twice a day after 2.5 weeks - did not help and felt s/s intensified 5. Recurrent hypersomnia- HX Sleep study and declined CPAP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 discuss with GI reviewed GI last note --scan to chart MONITOR B/P educated on all medications, benefits, side effects and risk, and educated on depression, anxiety, and mood d/o and educated on compliance of medications, appointment's, continue therapy discussion with patient about course of treatment and patient instructions. schedule therapy Lashell educated on serotonin syndrome educated patient she is on higher doses of Sertraline and Wellbutrin seen PCP and labs seeing GI 2. Generalized anxiety disorder- Sertraline 200 mg at night 3. Chronic post-traumatic stress disorder- stable schedule therapy- patient reported has not been in therapy recently 4. Memory impairment-memor y testing completed hx reported forgetful words and what doing at times discuss and educated on medication for memory will not try Aricept r/t patient has chronic diarrhea - IBS-D discuss and educated - patient stopped Namenda 5 mg twice a day after 2.5 weeks - did not help and felt s/s intensified 5. Recurrent hypersomnia-impr griffin HX Sleep study and declined CPAP IMPROVED 06/19/2024 Recurrent hypersomnia (ICD-10 - G47.13) 1. Mild recurrent major depression- Sertraline 200 mg at night- Wellbutrin XL 300 mg daily NO refill needed today GI procider wants to add Cymbalta for IBS-D - GI will prescribe Cymbalta- Patient wants to wait on rx at this time IBS improved will discuss with GI reviewed GI last note --scan to chart MONITOR B/P educated on all medications, benefits, side effects and risk, and educated on depression, anxiety, and mood d/o and educated on compliance of medications, appointment's, continue therapy discussion with patient about course of treatment and patient instructions. schedule therapy Lashell educated on serotonin syndrome educated patient she is on higher doses of Sertraline and Wellbutrin seen PCP and labs seeing GI 2. Generalized anxiety disorder- Sertraline 200 mg at night 3. Chronic post-traumatic stress disorder- stable schedule therapy- patient reported has not been in therapy recently 4. Memory impairment-memor y testing completed hx reported forgetful words and what doing at times discuss and educated on medication for memory will not try Aricept r/t patient has chronic diarrhea - IBS-D discuss and educated - patient stopped Namenda 5 mg twice a day after 2.5 weeks - did not help and felt s/s intensified 5. Recurrent hypersomnia-impr griffin HX Sleep study and declined CPAP IMPROVED 05/09/2024 Recurrent hypersomnia (ICD-10 - G47.13) 1. Mild recurrent major depression- Sertraline 200 mg at night- discuss may start to decrease dose if tolerate Cymbalta from GI provider Wellbutrin XL 300 mg daily NO refill needed today Will stop Effexor ER 37.5 MG DAILY IN AM- GI procider wants to add Cymbalta for IBS-D - GI will prescribe Cymbalta reviewed GI last note --scan to chart MONITOR B/P educated on all medications, benefits, side effects and risk, and educated on depression, anxiety, and mood d/o and educated on compliance of medications, appointment's, continue therapy discussion with patient about course of treatment and patient instructions. schedule therapy Lashell educated on serotonin syndrome educated patient she is on higher doses of Sertraline and Wellbutrin seen PCP and labs seeing GI 2. Generalized anxiety disorder- Sertraline 200 mg at night 3. Chronic post-traumatic stress disorder- stable schedule therapy- patient reported has not been in therapy recently 4. Memory impairment-memor y testing completed hx reported forgetful words and what doing at times discuss and educated on medication for memory will not try Aricept r/t patient has chronic diarrhea - IBS-D discuss and educated - patient stopped Namenda 5 mg twice a day after 2.5 weeks - did not help and felt s/s intensified 5. Recurrent hypersomnia- HX Sleep study and declined CPAP IMPROVED 12/08/2023 Other Sertraline Oral Tablet (SERTRALINE - ORAL) material was published, Venlafaxine Extended Release Oral Capsule (VENLAFAXINE SUSTAINED-RELEASE - ORAL) material was published 1. Mild recurrent major depression- Sertraline 200 mg at night Wellbutrin XL 300 mg daily Effexor ER 37.5 MG DAILY IN AM MONITOR B/P educated on all medications, benefits, side effects and risk, and educated on depression, anxiety, and mood d/o and educated on compliance of medications, appointment's, continue therapy discussion with patient about course of treatment and patient instructions. schedule therapy Lashell educated on serotonin syndrome schedule to see PCP this week and labs F33.0: Major depressive disorder, recurrent, mild stable bupropion HCl XL 300 mg 24 hr tablet, extended release - Take 1 tablet(s) every day by oral route in the morning for 90 days. Qty: (90) tablet Refills: 0 Pharmacy: [facility] #[id number] venlafaxine ER 37.5 mg capsule,extended release 24 hr - Take 1 capsule(s) every day by oral route in the morning for 90 days. Qty: (90) capsule Refills: 0 Pharmacy: [facility] #[id number] 2. Generalized anxiety disorder- Sertraline 200 mg at night F41.1: Generalized anxiety disorder stable sertraline 100 mg tablet - Take 2 tablet(s) every day by oral route at bedtime for 90 days. Qty: (180) tablet Refills: 0 Pharmacy: [facility] #[id number] 3. Chronic post-traumatic stress disorder- stable schedule therapy F43.12: Post-traumatic stress disorder, chronic 4. Memory impairment-memor y testing completed R41.3: Other amnesia 5. Recurrent hypersomnia- HX Sleep study and declined CPAP IMPROVED G47.13: Recurrent hypersomnia 03/09/2024 Other referral to the local chapter or national office of the Alzheimer's Association ( ; http://www.alz.org) , the Alzheimer's Disease Education and Referral Center (ADEAR) ( ; http://www.louise.nih. gov/Alzheimers/), , Sertraline Oral Tablet (SERTRALINE - ORAL) material was published, Bupropion Extended Release Oral Tablet (BUPROPION HCL EXTENDED-RELEASE (ANTIDEPRESSANT) - ORAL) material was published, Venlafaxine Extended Release Oral Capsule (VENLAFAXINE SUSTAINED-RELEASE - ORAL) material was published, Memantine Oral Tablet (MEMANTINE - ORAL) material was published 1. Mild recurrent major depression- Sertraline 200 mg at night Wellbutrin XL 300 mg daily Effexor ER 37.5 MG DAILY IN AM MONITOR B/P educated on all medications, benefits, side effects and risk, and educated on depression, anxiety, and mood d/o and educated on compliance of medications, appointment's, continue therapy discussion with patient about course of treatment and patient instructions. schedule therapy Lashell educated on serotonin syndrome educated patient she is on higher doses of Sertraline and Wellbutrin schedule to see PCP and labs seeing GI 2. Generalized anxiety disorder- Sertraline 200 mg at night 3. Chronic post-traumatic stress disorder- stable schedule therapy- patient reported has not been in therapy recently 4. Memory impairment-memor y testing completed hx reported forgetful words and what doing at times discuss and educated on medication for memory will not try Aricept r/t patient has chronic diarrhea - IBS-D discuss and educated - will add Namenda 5 mg twice a day 5. Recurrent hypersomnia- HX Sleep study and declined CPAP IMPROVED 07/14/2024 Other Emotional Distress and Self-Blame - Assessment: The patient experiences emotional distress and self-blame related to confrontation with [id number]. - Plan: - Continue with regular therapy sessions to address emotional distress and self-blame. - Encourage the use of coping strategies, such as deep breathing and mindfulness techniques, to manage emotional triggers. - Discuss the possibility of incorporating EMDR therapy to address core beliefs of defectiveness and vulnerability. - Teach and practice tapping techniques (Emotional [place] Technique) to help manage emotional distress and triggers. Difficulty Setting Boundaries and Managing Interpersonal Relationships - Assessment: The patient has difficulty setting boundaries and managing interpersonal relationships. - Plan: - Continue to work on communication skills and boundary-setting techniques in therapy sessions. - Encourage the patient to practice assertiveness and self-advocacy in interpersonal relationships. - Explore the potential benefits of support groups or group therapy to share experiences and learn from others facing similar challenges. - Discuss strategies for managing interactions with difficult family members, particularly the [id number]-dwo. Suspected History of Childhood Trauma - Assessment: The patient has a suspected history of childhood trauma impacting their current emotional state. - Plan: - Further explore the patient's childhood experiences and their impact on current emotions and beliefs. - Consider incorporating trauma-focused therapy approaches, such as EMDR or trauma-focused cognitive-behavio ral therapy (TF-CBT), to address unresolved trauma. - Address core beliefs of defectiveness stemming from childhood experiences with the patient's mother. Coping with Potential Triggers and Emotional Regulation - Assessment: The patient needs support in coping with potential triggers and emotional regulation. - Plan: - Teach and practice tapping techniques (Emotional [place] Technique) to help manage emotional distress and triggers. - Encourage the patient to identify and avoid situations or individuals that may trigger emotional distress, when possible. - Develop a personalized self-care plan to promote emotional well-being and resilience. - Work on strategies to manage emotional reactions in triggering situations, particularly with family members. Each section addresses a specific problem area and outlines a corresponding plan for treatment and support. 08/17/2024 Other Reactive Attachment Disorder - Assessment: The patient has difficulties with trust, self-esteem, and emotional regulation, particularly related to her mother's attachment issues. - Plan: - Continue to explore the impact of the patient's childhood experiences on her current emotional and relational functioning. - Address the patient's difficulties with trust, self-esteem, and emotional regulation. Anxiety and Triggers - Assessment: The patient experiences anxiety related to female authority figures, aggressive behavior, and interactions with her [id number]. - Plan: - Identify specific triggers, particularly related to female authority figures and aggressive behavior, as well as experiences with her [id number]-ki-pqs. - Develop coping strategies to manage anxiety and reduce the impact of triggers on the patient's daily life. EMDR Therapy - Assessment: The patient is undergoing EMDR therapy to reprocess disturbing memories and improve emotional well-being. - Plan: - Continue EMDR sessions to help the patient reprocess disturbing memories and improve emotional well-being. - Establish a safe place in the patient's mind to return to at the end of each session, focusing on her peaceful home environment. - Monitor the patient's progress and response to EMDR therapy, adjusting the approach as needed. Interpersonal Relationships - Assessment: The patient faces challenges in communication and conflict resolution, particularly with her and tfdigw-nr-uvj. - Plan: - Support the patient in improving communication and conflict resolution skills, particularly with her and gayqvu-rn-shv. - Encourage the patient to set healthy boundaries and assert herself in relationships, especially with female authority figures. Emotional Expression - Assessment: The patient struggles with expressing emotions and experiences feelings of being misunderstood. - Plan: - Facilitate the patient's ability to express her emotions and experiences in a safe and supportive environment. - Encourage the patient to practice self-compassion and challenge negative cognitions. Coping Strategies - Plan: - Explore and implement various coping strategies, such as mindfulness, relaxation techniques, and grounding exercises, to help the patient manage stress and anxiety. Follow-up - Plan: - Schedule regular follow-up appointments to monitor the patient's progress and adjust the treatment plan as needed. Each section addresses specific aspects of the patient's mental health and outlines corresponding plans for treatment and support. Plan Of Treatment Next Appt Details Provider Name:Rashida Boo , 09/15/2024 11:45:00 AM, [address], [place] [address], [address], Provider Name:Lashell Reyes, 10/11/2024 11:00:00 AM, [address], [place] [address], [place], [address], Provider Name:Lashell Reyes, 10/23/2024 11:00:00 AM, [address], [place] [address], [place], [address], Provider Name:Lashell Reyes, 11/06/2024 02:00:00 PM, [address], [place] [address], [place], [address], Provider Name:Lashell Reyes, 11/20/2024 11:00:00 AM, [address], [place] [address], [place], [address], Insurance Providers Payer Name Payer Address Payer Phone Subscriber Number Group Number Insured Name Patient Relationship to Insured Coverage Start Date Coverage End Date Medicare-I l Medicare [address] [place] [phone] [id number] EFREN BrockLALA Self - patient is the insured [employer] [address] [place] [address] [id number] EFREN DelmyLALA Self - patient is the insured Medical (General) History Medical History History ICD Code Problems: Chronic post-traumatic stress disorder Generalized anxiety disorder Memory impairment Mild recurrent major depression Moderate recurrent major depression Recurrent hypersomnia Severe recurrent major depression withou t psychotic features Tobacco user , Surgical History Surgery Date(Month/Year) Cataract surgery (17629) delivery (45585) Discectomy of spine (5004749) Any surgical history 06/21/2009 Cataract surgery (67331) 05/04/2019 Any surgical history 06/18/2021 [facility] October 2023
== END ==
LOC: ANHLAB 11:52
PROVIDERS: PCP Family Medicine; Visit Provider Plastic Surgery
DX: D48.5 Neoplasm of uncertain behavior of skin (principal)
CPT/HCPCS: 88305

== ENCOUNTER 2024-09-22 09:48 | Outpatient (CLI) | payer MEDICARE, SELFPAY ==
--- NOTE | ~2024-09-22 | CT_ITS ---
EXAMINATION: CT sinus wo con DATE: 09/22/2024 10:00 INDICATION: Deviated nasal septum TECHNIQUE: Computed tomography (CT) of the paranasal sinuses was performed without intravenous contra st. The dose-length product was 396.68 mGy-cm. Automated exposure control and iterative reconstructio n technique were employed. COMPARISON: None FINDINGS: There is mild mucosal thickening of the ethmoid and sphenoid sinuses. Ostiomeatal units are patent bilaterally. Rightward nasal septal deviation. Mastoids are pneumatized. IMPRESSION: 1. Mild sinus disease. Reviewed, dictated and finalized at location A. IMPRESSION: 1. Mild sinus disease.
== END 2024-09-22 09:49 | disposition home or self-care (01) ==
LOC: GOSHIMG 09:49
PROVIDERS: PCP Otolaryngology; Visit Provider Otolaryngology
DX: J34.2 Deviated nasal septum (principal); J32.2 Chronic ethmoidal sinusitis; J30.2 Other seasonal allergic rhinitis
CPT/HCPCS: 70486

== ENCOUNTER 2024-11-06 08:39 | Outpatient (CLI) | payer MEDICARE, SELFPAY ==
--- NOTE | ~2024-11-06 | DEXA_ITS ---
Bone Density Report Name: SELVIN MOYA Age: 69 Sex: Female Ethnicity: White Date of : 1955 Indication: postmenopausal osteoporosis; parental hip fracture; Referring Provider: Calli No Study: Bone densitometry was performed. Exam Date: November 06, 2024 Accession number: [id number] Bone Density: Region BMD T-score Z-score Classification AP Spine(L1-L4) 0.758 -2.6 -0.4 Osteoporosis Femoral Neck (Left) 0.490 -3.2 -1.4 Osteoporosis Total Hip (Left) 0.694 -2.0 -0.5 Osteopenia Femoral Neck (Right) 0.509 -3.1 -1.2 Osteoporosis Total Hip (Right) 0.681 -2.1 -0.6 Osteopenia Total Hip Mean 0.687 -2.1 -0.6 Osteopenia World Health Organization criteria for BMD impression classify patients as: Normal (T-score at or above -1.0), Osteopenia (T-score between -1.0 and -2.5), or Osteoporosis (T-score at or below -2.5). 10-year Fracture Risk: FRAX not reported because: Some T-score for Spine Total or Hip Total or Femoral Neck at or below -2.5 Previous Exams: -- Region Exam Age BMD T-score BMD Change BMD Change Date g/cm2 vs Baseline vs Previous -- AP Spine (L1-L4) 11/06/2024 69 0.758 -2.6 0.3% 0.3% 08/04/2022 67 0.755 -2.7 Total Hip(Left) 11/06/2024 69 0.694 -2.0 -1.6% -1.6% 08/04/2022 67 0.705 -1.9 Total Hip(Right) 11/06/2024 69 0.681 -2.1 1.5% 1.5% 08/04/2022 67 0.671 -2.2 -- *Denotes significance at 95% confidence level, LSC for AP Spine = 0.022 g/cm2, LSC for Total Hip = 0.027 g/cm2 Clinical Information Provided by Patient: Parent has had a hip fracture Has used the following medications: HRT (i.e. estrogen/hormone therapy), Vitamin D, Calcium Patient maximum height was 59.0 Menopause Age: 52 No regular weight bearing exercise Does not regularly consume dairy products Onset of menses at age 10 Number of children 3 Impression: The patient has osteoporosis, based on the Left Femoral Neck T-score. The patient has risk factors, including: parental hip fracture. No significant bone loss was observed. Discussion: INCREASED RISK OF FRACTURE. BONE DENSITY IS UNDESIRABLY LOW AT ONE OR MORE SKELETAL SITES, CONSISTENT WITH POSTMENOPAUSAL OSTEOPOROSIS. This patient's lowest T-score meets the World Health Organization's (WHO) criteria for osteoporosis at one or more sites (T-score -2.5 or below). In untreated patients, the risk of osteoporotic fracture increases approximately two-fold for each 1.0 SD decrease in T-score. Low bone density is not the only risk factor for fracture; also consider factors such as patient's age, frailty or poor health, risk of falling, risk of injury, previous osteoporotic fracture, family history of osteoporosis, cigarette smoking, low body weight, etc. Not everyone with low bone mineral density has osteoporosis; osteomalacia and other metabolic bone disorders should also be considered. Patients who have osteoporosis should be evaluated for specific diseases and conditions (secondary causes) that may cause or contribute to bone loss. The [place] Association of Clinical Endocrinologists (AACE) and National Osteoporosis Foundation (NOF) recommend pharmacologic intervention for all postmenopausal women whose T-score is in this range. The patient should follow a healthful lifestyle (good nutrition with adequate calcium and vitamin D, and appropriate weight-bearing exercise). Follow-Up: Consider a repeat BMD and Vertebral Fracture Assessment (VFA) exam in 2 years or sooner if medically necessary, to reassess this patient's status. Reported by: DM on 11/08/2024 8:56:00 AM. Reviewed, dictated and finalized at location A.
== END 2024-11-06 08:40 | disposition home or self-care (01) ==
LOC: MICIMG 08:40
PROVIDERS: PCP Nurse Practitioner; Visit Provider Nurse Practitioner
DX: M85.88 Other specified disorders of bone density and structure, other site (principal); M81.0 Age-related osteoporosis without current pathological fracture; M85.852 Other specified disorders of bone density and structure, left thigh; M85.851 Other specified disorders of bone density and structure, right thigh
CPT/HCPCS: 77080

== ENCOUNTER 2024-11-09 10:45 | Outpatient (CLI) | payer MEDICARE, SELFPAY ==
--- OUTSIDE RECORDS SUMMARY | 2024-11-09 10:47 | XMS_ITS | Referral Summary ---
Author Organization [facility] [address] Address [address] [place] [address] Care Team Providers Care Cereal Chemist Name Role Phone Kamille Montalvo DO Primary Care Provider [phone] Allergies Active Allergy Reactions Criticality Noted Date [...] on file Legal Sex Female 3:36 PM CONCRETE BLOCK [employer] Gender Identity Not on file Sexual Orientation [...] of Treatment Not on file Insurance MEDICARE [facility] BENEFITS MEDICARE [employer] Care Teams Cereal Chemist Relationship Specialty Start Date End Date Kamille Montalvo DO [facility] [address] [place] [address] [place] [id number] PCP - General Family Medicine 12/24/23
--- OUTSIDE RECORDS SUMMARY | 2024-11-09 10:47 | XMS_ITS | Patient Health Record ---
Author Organization [facility] [employer] Address [address] [place] [address] Care Team Providers Care Enforcement Safety Officer Name Role Phone Lashell Casillas Unavailable [phone] Kuldip Rowe Unavailable [phone] Rashida Boo Unavailable [phone] Cristian Bauman Unavailable [phone] Allergies Allergen (clinical drug ingredient) Drug/Non Drug Allergy documented on EMR Reaction Allergy Type Onset Date Status morphine MORPHOLINE ANALOGUES (uncoded) Unknown Allergy 11/08/2023 Active Reason For Referral No Information Medications Medication SIG (Take, Route, Frequency, Duration) Notes Start Date End Date Status buPROPion HCl ER (XL) 300 MG 1 tablet ev lucero morning Oral Once a day for 90 days Active Sertraline HCl 100 MG 2 tablets Oral Onc e a day for 90 days Active Imodium A-D 2 MG 1 tablet as needed Orally Four times a day As needed PRN Active Progesterone Micronized 100 MG Oral 11/08/2023 Active Omeprazole 20 MG Oral 11/08/2023 Ac tive Cyclobenzaprine HCl 5 MG Oral 11/08/2023 Active Triamcinolone Acetonide 0.1% External 11/08/2023 Active [place] Carbonate 150 MG 1 capsule at be dtime Oral once a day for 30 days Active Rosuvastatin Calcium 5 MG Oral 11/08/2023 Active Immunizations Vaccine Route Administration Date Status Comme nts Influenza, unspecified formulation Unknown 03/22/2023 A dministered Pfizer Biontech Covid-19 Vac cine 2nd dose Unknown 08/20/2020 Administered Pfizer Biontech Covid-19 Vac cine 2nd dose Unknown 09/10/2020 Administered Pfizer Biontech Covid-19 Vac cine 2nd dose Unknown 06/24/2021 Administered Social History Tobacco Use: Social History Observation [...] of education: finished high school 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 Sexual History Question Answer Notes [...] NoDo you have a medical power of ceramic design engineer?: NoPublic Health and TravelHave you been to [...] Risk Notes Problem Mild recurrent major depression (77570419) Major depressive disorder, recurrent, mild (F33.0) 11/08/19 Active confirmed Problem Moderate recurrent major depression (08005124) Major depressive disorder, recurrent, moderate (F33.1) 10/18/19 Active confirmed Problem Severe recurrent major depression without psychotic features (52317132) Major depressive disorder, recurrent severe without psychotic features (F33.2) Active confirmed Problem Generalized anxiety disorder (39023006) Generalized anxiety disorder (F41.1) 11/08/19 Active confirmed Problem Posttraumatic stress disorder (20391675) Post-traumatic stress disorder, chronic (F43.12) 11/08/19 Active confirmed Problem Recurrent hypersomnia (476793949) Recurrent hypersomnia (G47.13) 09/06/19 Active confirmed Problem Amnesia (90051008) Other amnesia (R41.3) 09/06/19 Active confirmed Problem 1791056 Suicidal ideations (R45.851) Active confirmed Problem Screening for cardiovascular system disease (481007123) Encounter for screening for cardiovascular disorders (Z13.6) Active confirmed Problem Dietary management surveillance (021539953) Dietary counseling and surveillance (Z71.3) Active confirmed Problem Tobacco use (996812920) Tobacco use (Z72.0) Active confirmed Problem Depression Screening (062973095) Encounter for screening for depression (Z13.31) Active confirmed Problem 88315329 MDD (major depressive disorder), recurrent episode, moderate (F33.1) Active confirmed Problem History of psychiatric disorder (367375920) History of suicidal ideation (Z86.59) Active confirmed Vital Signs Heart Rate 79 /min 11/02/2024 Respiratory Rate 18 /min 12/08/2023 Blood pressure diastolic 82 mm Hg 11/02/2024 Height-cm 149.86 cm 11/02/2024 Weight-kg 55.47 kg 11/02/2024 Height 59.00 in 11/02/2024 Blood pressure systolic 142 mm Hg 11/02/2024 Weight 122.3 lbs 11/02/2024 BMI 24.7 kg/m2 11/02/2024 Encounters Encounter Location Date Provider Diagnosis [place] [id number] [facility] [address] [place] [address] 12/06/2023 Lashell Reyes Generalized anxiety disorder F41.1 ; Post-traumatic stress disorder, chronic F43.12 and Major depressive disorder, recurrent, mild F33.0 [place] [address] [facility] [address] [place] [address] 12/08/2023 Rashida Boo Major depressive disorder, recurrent, mild F33.0 ; Generalized anxiety disorder F41.1 ; Post-traumatic stress disorder, chronic F43.12 and Recurrent hypersomnia G47.13 [facility] [address] [facility] [address] [place] [address] 03/09/2024 Rashida Boo Major depressive disorder, recurrent, mild F33.0 ; Generalized anxiety disorder F41.1 ; Post-traumatic stress disorder, chronic F43.12 ; Recurrent hypersomnia G47.13 and Other amnesia R41.3 [place] [address] [facility] [address] [place] [address] 05/09/2024 Rashida Boo Other amnesia R41.3 ; Major depressive disorder, recurrent, moderate F33.1 ; Generalized anxiety disorder F41.1 ; Major depressive disorder, recurrent, mild F33.0 ; Post-traumatic stress disorder, chronic F43.12 and Recurrent hypersomnia G47.13 [place] [address] [address] 06/19/2024 Rashida Boo Other amnesia R41.3 ; Major depressive disorder, recurrent, moderate F33.1 ; Generalized anxiety disorder F41.1 ; Major depressive disorder, recurrent, mild F33.0 ; Post-traumatic stress disorder, chronic F43.12 and Recurrent hypersomnia G47.13 [facility] [address] [facility] [address] [place] [address] 07/14/2024 Lashell Reyes Major depressive disorder, recurrent, moderate F33.1 ; Generalized anxiety disorder F41.1 and Post-traumatic stress disorder, chronic F43.12 [place] [address] [facility] [address] [place] [address] 08/17/2024 Lashell Reyes Major depressive disorder, recurrent, mild F33.0 ; Generalized anxiety disorder F41.1 and Post-traumatic stress disorder, chronic F43.12 [facility] [employer] [facility] [address] [address] 09/15/2024 Rashida Boo Other amnesia R41.3 ; Major depressive disorder, recurrent, moderate F33.1 ; Generalized anxiety disorder F41.1 ; Post-traumatic stress disorder, chronic F43.12 ; Recurrent hypersomnia G47.13 ; Encounter for screening for depression Z13.31 and Encounter for screening for cardiovascular disorders Z13.6 [facility] [address] [address] 10/11/2024 Lashell Reyes Major depressive disorder, recurrent, mild F33.0 ; Post-traumatic stress disorder, chronic F43.12 ; Generalized anxiety disorder F41.1 and Encounter for screening for depression Z13.31 [facility] [address] [address] 10/23/2024 Lashell Reyes Major depressive disorder, recurrent, mild F33.0 ; Generalized anxiety disorder F41.1 ; Post-traumatic stress disorder, chronic F43.12 and Encounter for screening for depression Z13.31 [facility] [place] [address] [address] 10/23/2024 Cristian Clubb Major depressive disorder, recurrent severe without psychotic features F33.2 ; Suicidal ideations R45.851 ; Post-traumatic stress disorder, chronic F43.12 ; Generalized anxiety disorder F41.1 ; Tobacco use Z72.0 and Encounter for screening for depression Z13.31 [facility] [employer] [facility] [place] [address] [address] 10/25/2024 Cristian Clubb Major depressive disorder, recurrent severe without psychotic features F33.2 ; Post-traumatic stress disorder, chronic F43.12 ; Generalized anxiety disorder F41.1 ; History of suicidal ideation Z86.59 ; Encounter for screening for cardiovascular disorders Z13.6 and Dietary counseling and surveillance Z71.3 [facility] [employer] [facility] [address] [address] 11/02/2024 Rashida Boo Encounter for screening for depression Z13.31 ; Major depressive disorder, recurrent, moderate F33.1 ; Encounter for screening for cardiovascular disorders Z13.6 ; Dietary counseling and surveillance Z71.3 ; Other amnesia R41.3 ; Generalized anxiety disorder F41.1 ; Post-traumatic stress disorder, chronic F43.12 and Recurrent hypersomnia G47.13 [place] [address] [address] 11/06/2024 Lashell Reyes Major depressive disorder, recurrent severe without psychotic features F33.2 ; Post-traumatic stress disorder, chronic F43.12 and Generalized anxiety disorder F41.1 [place] [address] [address] 03/15/2024 Rashida Thercarli Major depressive disorder, recurrent, mild F33.0 and Other amnesia R41.3 [place] [address] [address] 03/15/2024 Rashida Thery Major depressive disorder, recurrent, mild F33.0 and Other amnesia R41.3 [place] [address] [address] 03/15/2024 Kuldip Rowe Major depressive disorder, recurrent, mild F33.0 and Other amnesia R41.3 [place] [address] [address] 10/25/2024 Rashida Thercarli Major depressive disorder, recurrent, moderate F33.1 [place] [address] [address] 12/06/2023 Lashell Reyes [place] [address] [address] 01/06/2024 Lashell Reyes [place] [address] [address] 03/14/2024 Lashell Reyes Assessments Encounter Date Diagnosis (ICD Code) Assessment Notes Treatment Notes Treatment Clinical Notes Section Notes 10/25/2024 Major depressive disorder, recurrent, moderate (ICD-10 - F33.1) 11/02/2024 Major depressive disorder, recurrent, moderate (ICD-10 - F33.1) 1. major depression- Sertraline 200 mg at night- Wellbutrin XL 300 mg daily Pateint requested to stop - Effexor ER 37.5 MG IN AM [place] 150 mg daily - improved mood and improved suicidal thoughts [place] education [place] use reviewed. Risks include risks of toxicity, arrhythmias, cognitive impairment, changes in muscle coordination, weight gain, thyroid and parathyroid changes, polydipsia and polyuria, alopecia, tremor and teratogenicity ( defects). Recommend avoid in females (use contraception consistently). Routine lab monitoring may be required. Patient consented to treatment. Indications: acute vic (euphoric vic), bipolar prophylaxis, bipolar depression treatment or augmentation, unipolar depression as augmentation with antidepressants Average dose = I,500 mg/day, target serum level 0.8 [place] is known to reduce risk of suicide. Mechanism of action: inhibits inositol monophosphatase , interfering with 2nd messengers Nuisance Side Effects: sedation, cognitive difficulties, decreased creativity, dry mouth, tremor, increased appetite, weight gain, polydipsia, polyuria, nausea, diarrhea, acne, alopecia Serious Side Effects: Thyroid: hypothyroidism (5%), goiter (3%) Cardiac: decrease in cardiac conduction leading to sick sinus syndrome, blocks SA node Teratogenicity: Ebstein's anomaly 2 in 1,000 Renal: chronic renal insufficiency (after 10-20 years), acute renal failure, polyuria occurs in 50-70% [lithium antagonizes anti-diuretic hormone (ADH)], diabetes insipidus in 10% (treat with amiloride) Drug-drug interactions: increase in lithium: NSAIDs, MYLA inhibitors, angiotensin II antagonists If you are planning on becoming , notify your health care provider so that he/she can best manage your medications. People living with bipolar disorder who wish to become face important decisions. It is important to discuss the risks and benefits of treatment with your doctor and caregivers. [place] has been associated with an increased risk of Ebstein's anomaly, a heart valve defect. Even though data suggest that the risk of Ebstein's anomaly from first trimester use of lithium is very low, an ultrasound of the heart is recommended at 16 to 20 weeks of gestation. [place] levels should be monitored monthly in early and weekly near delivery. Do not stop taking lithium without first speaking to your health care provider. Discontinuing mood stabilizer medications during has been associated with a significant increase in symptom relapse. If an overdose occurs call your doctor or 911. You may need urgent medical care. You may also contact the poison control center at . A specific treatment to reverse the effects of lithium does not exist, but there are treatments to decrease the effects of the medication. Only a doctor can determine if you require treatment. Avoid drinking alcohol or using illegal drugs while you are taking lithium. They may decrease the benefits (e.g., worsen your condition) and increase adverse effects (e.g., sedation) of the medication. Avoid low sodium diets and dehydration because this can increase the risk of lithium toxicity. Avoid over the counter and prescription pain medications that contain nonsteroidal anti-inflammato ry medications (NSAIDS) such as ibuprofen (Motrin, Advil) or naproxen (Aleve, Naprosyn) because these medications can increase the risk of toxicity from lithium. Avoid excessive intake of caffeinated beverages, such as coffee, tea, cola or energy drinks, since these may decrease levels of lithium and decrease effectiveness of the medication. Discontinuing caffeine use may increase lithium levels. Consult your health care provider before reducing or stopping caffeine use. What are the possible side effects of lithium? Common side effects Headache Nausea or vomiting Diarrhea Dizziness or drowsiness Changes in appetite Hand tremors Dry mouth Increased thirst Increased urination Thinning of hair or hair loss Acne-like rash Rare/Serious side effects Signs of lithium toxicity include severe nausea and vomiting, severe hand tremors, confusion, vision changes, and unsteadiness while standing or walking. These symptoms need to be addressed immediately with a medical doctor to ensure your lithium level is not dangerously high. In rare cases, lithium may lead to a reversible condition known as diabetes insipidus. If this occurs you would notice a significant increase in thirst and how much fluid you drink and how much you urinate. Talk to your doctor if you notice you are urinating more frequently than usual. Are There Any Risks For Taking [place] For Long Periods Of Time? Hypothyroidism (low levels of thyroid hormone) may occur with long-term lithium use. Rare kidney problems have been associated with long-term use of lithium. The risk increases with high levels of lithium. Your doctor will monitor your kidney function at routine check-ups to ensure this does not occur. Summary of Black Box Warnings [place] Toxicity [place] toxicity is closely related to lithium blood levels and can occur at doses close to therapeutic levels; lithium levels should be monitored closely when starting the medication or if individuals experience side effects of the medication Patient never started Cymbalta from GI provider MONITOR B/P educated on all medications, benefits, side effects and risk, and educated on depression, anxiety, and mood d/o and educated on compliance of medications, appointment's, continue therapy discussion with patient about course of treatment and patient instructions. schedule therapy Lashell educated on serotonin syndrome educated patient she is on higher doses of Sertraline and Wellbutrin seen PCP and labs seeing GI 11/12 2. Generalized anxiety disorder- Sertraline 200 mg at night 3. Chronic post-traumatic stress disorder- stable schedule therapy- Lashell scheduled 10/13 4. Memory impairment-ravin ry testing completed hx reported forgetful words and what doing at times, short term memory loss discuss and educated on medication for memory will not try Aricept r/t patient has chronic diarrhea - IBS-D discuss and educated - patient stopped Namenda 5 mg twice a day after 2.5 weeks - did not help and felt s/s intensified 5. Recurrent hypersomnia-imp roved HX Sleep study and declined CPAP IMPROVED 6. tobacco Smoking Education Do not smoke. Nicotine and other chemicals in cigarettes and cigars can cause lung damage. Ask your healthcare provider for information if you currently smoke and need help to quit. E-cigarettes or smokeless tobacco still contain nicotine. Talk to your healthcare provider before you use these products. education on decrease to stopping nicotine products and stop smoking hotline given 9Quit - Yes [place] Tobacco Quitline Call a Smoking Quitline The National Cancer [place]'s Smoking Quitline, (3-528-75J-QUIT ) Smokefree.gov, which connects you with your State's Quitline, (8-809-RUSIRON) [facility] Smoking Quitline, (7-016-RIGRXIM) 7. elevated Blood pressure reading B/P EDUCATION educated on healthy b/p 120/80 monitor b/p at home refer to PCP, heart healthy diet and excise limit salt intake limit soda intake and caffiene increase water 10/11/2024 Post-traumatic stress disorder, chronic (ICD-10 - F43.12) 09/15/2024 Other amnesia (ICD-10 - R41.3) 1. major depression- Sertraline 200 mg at night- Wellbutrin XL 300 mg daily pateint re-started Effexor ER 37.5 MG IN AM 2 weeks ago Patient never started Cymbalta from GI provider MONITOR B/P educated on all medications, benefits, side effects and risk, and educated on depression, anxiety, and mood d/o and educated on compliance of medications, appointment's, continue therapy discussion with patient about course of treatment and patient instructions. schedule therapy Lashell educated on serotonin syndrome educated patient she is on higher doses of Sertraline and Wellbutrin seen PCP and labs seeing GI 11/12 2. Generalized anxiety disorder- Sertraline 200 mg at night 3. Chronic post-traumatic stress disorder- stable schedule therapy- Lashell scheduled 10/13 4. Memory impairment-ravin ry testing completed hx reported forgetful words and what doing at times, short term memory loss discuss and educated on medication for memory will not try Aricept r/t patient has chronic diarrhea - IBS-D discuss and educated - patient stopped Namenda 5 mg twice a day after 2.5 weeks - did not help and felt s/s intensified 5. Recurrent hypersomnia-imp roved HX Sleep study and declined CPAP IMPROVED 10/11/2024 Major depressive disorder, recurrent, mild (ICD-10 - F33.0) 10/23/2024 Major depressive disorder, recurrent, mild (ICD-10 - F33.0) 10/23/2024 Generalized anxiety disorder (ICD-10 - F41.1) 11/02/2024 Encounter for screening for depression (ICD-10 - Z13.31) 1. major depression- Sertraline 200 mg at night- Wellbutrin XL 300 mg daily Pateint requested to stop - Effexor ER 37.5 MG IN AM [place] 150 mg daily - improved mood and improved suicidal thoughts [place] education [place] use reviewed. Risks include risks of toxicity, arrhythmias, cognitive impairment, changes in muscle coordination, weight gain, thyroid and parathyroid changes, polydipsia and polyuria, alopecia, tremor and teratogenicity ( defects). Recommend avoid in females (use contraception consistently). Routine lab monitoring may be required. Patient consented to treatment. Indications: acute vic (euphoric vic), bipolar prophylaxis, bipolar depression treatment or augmentation, unipolar depression as augmentation with antidepressants Average dose = I,500 mg/day, target serum level 0.8 [place] is known to reduce risk of suicide. Mechanism of action: inhibits inositol monophosphatase , interfering with 2nd messengers Nuisance Side Effects: sedation, cognitive difficulties, decreased creativity, dry mouth, tremor, increased appetite, weight gain, polydipsia, polyuria, nausea, diarrhea, acne, alopecia Serious Side Effects: Thyroid: hypothyroidism (5%), goiter (3%) Cardiac: decrease in cardiac conduction leading to sick sinus syndrome, blocks SA node Teratogenicity: Ebstein's anomaly 2 in 1,000 Renal: chronic renal insufficiency (after 10-20 years), acute renal failure, polyuria occurs in 50-70% [lithium antagonizes anti-diuretic hormone (ADH)], diabetes insipidus in 10% (treat with amiloride) Drug-drug interactions: increase in lithium: NSAIDs, MYLA inhibitors, angiotensin II antagonists If you are planning on becoming , notify your health care provider so that he/she can best manage your medications. People living with bipolar disorder who wish to become face important decisions. It is important to discuss the risks and benefits of treatment with your doctor and caregivers. [place] has been associated with an increased risk of Ebstein's anomaly, a heart valve defect. Even though data suggest that the risk of Ebstein's anomaly from first trimester use of lithium is very low, an ultrasound of the heart is recommended at 16 to 20 weeks of gestation. [place] levels should be monitored monthly in early and weekly near delivery. Do not stop taking lithium without first speaking to your health care provider. Discontinuing mood stabilizer medications during has been associated with a significant increase in symptom relapse. If an overdose occurs call your doctor or 911. You may need urgent medical care. You may also contact the poison control center at . A specific treatment to reverse the effects of lithium does not exist, but there are treatments to decrease the effects of the medication. Only a doctor can determine if you require treatment. Avoid drinking alcohol or using illegal drugs while you are taking lithium. They may decrease the benefits (e.g., worsen your condition) and increase adverse effects (e.g., sedation) of the medication. Avoid low sodium diets and dehydration because this can increase the risk of lithium toxicity. Avoid over the counter and prescription pain medications that contain nonsteroidal anti-inflammato ry medications (NSAIDS) such as ibuprofen (Motrin, Advil) or naproxen (Aleve, Naprosyn) because these medications can increase the risk of toxicity from lithium. Avoid excessive intake of caffeinated beverages, such as coffee, tea, cola or energy drinks, since these may decrease levels of lithium and decrease effectiveness of the medication. Discontinuing caffeine use may increase lithium levels. Consult your health care provider before reducing or stopping caffeine use. What are the possible side effects of lithium? Common side effects Headache Nausea or vomiting Diarrhea Dizziness or drowsiness Changes in appetite Hand tremors Dry mouth Increased thirst Increased urination Thinning of hair or hair loss Acne-like rash Rare/Serious side effects Signs of lithium toxicity include severe nausea and vomiting, severe hand tremors, confusion, vision changes, and unsteadiness while standing or walking. These symptoms need to be addressed immediately with a medical doctor to ensure your lithium level is not dangerously high. In rare cases, lithium may lead to a reversible condition known as diabetes insipidus. If this occurs you would notice a significant increase in thirst and how much fluid you drink and how much you urinate. Talk to your doctor if you notice you are urinating more frequently than usual. Are There Any Risks For Taking [place] For Long Periods Of Time? Hypothyroidism (low levels of thyroid hormone) may occur with long-term lithium use. Rare kidney problems have been associated with long-term use of lithium. The risk increases with high levels of lithium. Your doctor will monitor your kidney function at routine check-ups to ensure this does not occur. Summary of Black Box Warnings [place] Toxicity [place] toxicity is closely related to lithium blood levels and can occur at doses close to therapeutic levels; lithium levels should be monitored closely when starting the medication or if individuals experience side effects of the medication Patient never started Cymbalta from GI provider MONITOR B/P educated on all medications, benefits, side effects and risk, and educated on depression, anxiety, and mood d/o and educated on compliance of medications, appointment's, continue therapy discussion with patient about course of treatment and patient instructions. schedule therapy Lashell educated on serotonin syndrome educated patient she is on higher doses of Sertraline and Wellbutrin seen PCP and labs seeing GI 11/12 2. Generalized anxiety disorder- Sertraline 200 mg at night 3. Chronic post-traumatic stress disorder- stable schedule therapy- Lashell scheduled 10/13 4. Memory impairment-ravin ry testing completed hx reported forgetful words and what doing at times, short term memory loss discuss and educated on medication for memory will not try Aricept r/t patient has chronic diarrhea - IBS-D discuss and educated - patient stopped Namenda 5 mg twice a day after 2.5 weeks - did not help and felt s/s intensified 5. Recurrent hypersomnia-imp roved HX Sleep study and declined CPAP IMPROVED 6. tobacco Smoking Education Do not smoke. Nicotine and other chemicals in cigarettes and cigars can cause lung damage. Ask your healthcare provider for information if you currently smoke and need help to quit. E-cigarettes or smokeless tobacco still contain nicotine. Talk to your healthcare provider before you use these products. education on decrease to stopping nicotine products and stop smoking hotline given 30Quit - Yes [place] Tobacco Quitline Call a Smoking Quitline The National Cancer [place] Smoking Quitline, (4-193-09D-QUIT ) Smokefree.gov, which connects you with your State's Quitline, (7-663-ULZYRGV) [employer] Smoking Quitline, (3-479-ZTXKUXU) 7. 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 - F33.2) 11/06/2024 Post-traumatic stress disorder, chronic (ICD-10 - F43.12) 10/25/2024 Major depressive disorder, recurrent severe without psychotic features (ICD-10 - F33.2) Patient had reduction in suicidal ideation and/or behavior upon follow-up assessment within 120 days of index assessment (M1357) 10/25/2024 Post-traumatic stress disorder, chronic (ICD-10 - F43.12) Patient had reduction in suicidal ideation and/or behavior upon follow-up assessment within 120 days of index assessment (M1357) 10/23/2024 Major depressive disorder, recurrent severe without psychotic features (ICD-10 - F33.2) 10/23/2024 Suicidal ideations (ICD-10 - R45.851) 12/06/2023 Generalized anxiety disorder (ICD-10 - F41.1) Assessment copied from [facility] 08/19/22. Lala transferred [employer] within [facility] for a new approach (last receiving counseling 11 months ago). She is a current pt of Rashida Boo at [facility] and takes prescribed Zoloft, Wellbutrin, and Effexor for tx of HEATH, CPTSD, and Moderate Recurrent Major Depression. 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 He is well liked [...] siblings are ) and grew up in [place], [place]. Lala shared, I worry I have early onset dementia . Doctors have completed a baseline exam. On a specialized diet for gastrointestina l issues. She is seeing a specialist for IBS. A drink mix is helping. Lala would like to work on improving her self worth. Goals discussed and developed. 12/06/2023 Post-traumatic stress disorder, chronic (ICD-10 - F43.12) Assessment copied from [facility] 08/19/22. Lala transferred [employer] within [facility] for a new approach (last receiving counseling 11 months ago). She is a current pt of Rashida Boo at [facility] and takes prescribed Zoloft, Wellbutrin, and Effexor for tx of HEATH, CPTSD, and Moderate Recurrent Major Depression. 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 He is well liked in the community but he is different at home. Sister in law is aware of this dynamic and is a source of support. He loses his temper and breaks stuff. Literally everything is my fault. Pt is well educated on narcissism. We show dogs but I drive separately because he makes me feel so anxious. Bud has 3 children from her first marriage. [...] siblings are ) and grew up in [facility] [place], [place]. Lala shared, I worry I have early onset dementia . Doctors have completed a baseline exam. On a specialized diet for gastrointestina l issues. She is seeing a specialist for [...] and labs F33.0: Major depressive disorder, recurrent, mildstablebupropi on HCl XL 300 mg 24 hr tablet, extended release - Take 1 tablet(s) every day by oral route in the morning for 90 days. Qty: (90) tablet Refills: 0 Pharmacy: [facility] #[id number] ER 37.5 mg capsule,extended release 24 hr - Take 1 capsule(s) every day by oral route in the morning for 90 days. Qty: (90) capsule Refills: 0 Pharmacy: [facility] #[id number] 2. Generalized anxiety disorder-Sertrali ne 200 mg at dycouA99.1: Generalized anxiety disorderstableser traline 100 mg tablet - Take 2 tablet(s) every day by oral route at bedtime for 90 days. Qty: (180) tablet Refills: 0 Pharmacy: [facility] #[id number] 3. Chronic post-traumatic stress disorder- stable schedule [id number]: Post-traumatic stress disorder, chronic 4. Memory impairment-memory testing [id number]: Other amnesia 5. Recurrent hypersomnia-HX Sleep study and declined [id number] 3: Recurrent hypersomnia, Preventing Depression From Coming Back: [...] days. Qty: (90) tablet Refills: 0 Pharmacy: [facility] #[id number] venlafaxine ER 37.5 mg capsule,extende d release 24 hr - Take 1 capsule(s) every day by oral route in the morning for 90 days. Qty: (90) capsule Refills: 0 Pharmacy: [facility] #[id number] 2. Generalized anxiety disorder- Sertraline 200 mg at night F41.1: Generalized anxiety disorder stable sertraline 100 mg tablet - Take 2 tablet(s) every day by oral route at bedtime for 90 days. Qty: (180) tablet Refills: 0 Pharmacy: [facility] #[id number] 3. Chronic post-traumatic stress disorder- stable schedule therapy F43.12: Post-traumatic stress disorder, chronic 4. Memory impairment-ravin ry testing completed R41.3: Other amnesia 5. Recurrent [...] days. Qty: (90) tablet Refills: 0 Pharmacy: [facility] #[id number] venlafaxine ER 37.5 mg capsule,extende d release 24 hr - Take 1 capsule(s) every day by oral route in the morning for 90 days. Qty: (90) capsule Refills: 0 Pharmacy: [facility] #[id number] 2. Generalized anxiety disorder- Sertraline 200 mg at night F41.1: Generalized anxiety disorder stable sertraline 100 mg tablet - Take 2 tablet(s) every day by oral route at bedtime for 90 days. Qty: (180) tablet Refills: 0 Pharmacy: [facility] #[id number] 3. Chronic post-traumatic stress disorder- stable schedule therapy F43.12: Post-traumatic stress disorder, chronic 4. Memory impairment-ravin ry testing completed R41.3: Other amnesia 5. Recurrent [...] not been in therapy recently 4. Memory impairment-ravin ry testing completed hx reported forgetful words and [...] not been in therapy recently 4. Memory impairment-ravin ry testing completed hx reported forgetful words and [...] of treatment and patient instructions. schedule therapy Lahsell educated on serotonin syndrome educated patient she is on higher doses of Sertraline and Wellbutrin seen PCP and labs seeing GI 2. Generalized anxiety disorder- Sertraline 200 mg at night 3. Chronic post-traumatic stress disorder- stable schedule therapy- patient reported has not been in therapy recently 4. Memory impairment-ravin ry testing completed hx reported forgetful words and [...] not been in therapy recently 4. Memory impairment-ravin ry testing completed hx reported forgetful words and [...] not been in therapy recently 4. Memory impairment-ravin ry testing completed hx reported forgetful words and what doing at times discuss and educated on medication for memory will not try Aricept r/t patient has chronic diarrhea - IBS-D discuss and educated - patient stopped Namenda 5 mg twice a day after 2.5 weeks - did not help and felt s/s intensified 5. Recurrent hypersomnia-imp roved HX Sleep study and declined CPAP IMPROVED 07/14/2024 Major depressive disorder, recurrent, moderate (ICD-10 - F33.1) 08/17/2024 Major depressive disorder, recurrent, mild (ICD-10 - F33.0) 08/17/2024 Generalized anxiety disorder (ICD-10 - F41.1) 12/06/2023 Major depressive disorder, recurrent, mild (ICD-10 [...] relationships with her family members, particularly her [id number], and is unsure about how to navigate [...] the next 6 months. Assessment copied from [facility] 08/19/22. Lala transferred [employer] within [facility] for a new approach (last receiving counseling 11 months ago). She is a current pt of Rashida Boo at [facility] and takes prescribed Zoloft, Wellbutrin, and Effexor for tx of HEATH, CPTSD, and Moderate Recurrent Major Depression. 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 Lala shared, I worry I have early onset dementia . Doctors have completed a baseline exam. On a specialized diet for gastrointestina l issues. She is seeing a specialist for IBS. A drink mix is helping. Lala would like to work on improving her self worth. Goals discussed and developed. 08/17/2024 Post-traumatic stress disorder, chronic (ICD-10 - F43.12) 09/15/2024 Major depressive disorder, recurrent, moderate (ICD-10 - F33.1) CancelRx Response got Denied on 2024-11-02 10:27:55 for 'Venlafaxine HCl ER 37.5 MG Capsule Extended Release 24 Hour'Pharmacy Notes: Some or all of Rx dispensed; Last fill:09/19/24 1. major depression- Sertraline 200 mg at night- Wellbutrin XL 300 mg daily pateint re-started Effexor ER 37.5 MG IN AM 2 weeks ago Patient never started Cymbalta from GI provider MONITOR B/P educated on all medications, benefits, side effects and risk, and educated on depression, anxiety, and mood d/o and educated on compliance of medications, appointment's, continue therapy discussion with patient about course of treatment and patient instructions. schedule therapy Lashell educated on serotonin syndrome educated patient she is on higher doses of Sertraline and Wellbutrin seen PCP and labs seeing GI 11/12 2. Generalized anxiety disorder- Sertraline 200 mg at night 3. Chronic post-traumatic stress disorder- stable schedule therapy- Lashell scheduled 10/13 4. Memory impairment-ravin ry testing completed hx reported forgetful words and what doing at times, short term memory loss discuss and educated on medication for memory will not try Aricept r/t patient has chronic diarrhea - IBS-D discuss and educated - patient stopped Namenda 5 mg twice a day after 2.5 weeks - did not help and felt s/s intensified 5. Recurrent hypersomnia-imp roved HX Sleep study and declined CPAP IMPROVED 09/15/2024 Generalized anxiety disorder (ICD-10 - F41.1) Generalized Anxiety Disorder: Care Instructions material was published, Learning About Generalized Anxiety Disorder material was published, Learning About Anxiety Disorders material was published, Generalized Anxiety Disorder: Care Instructions material was published, Learning About Generalized Anxiety Disorder material was published, Learning About Anxiety Disorders material was published 1. major depression- Sertraline 200 mg at night- Wellbutrin XL 300 mg daily pateint re-started Effexor ER 37.5 MG IN AM 2 weeks ago Patient never started Cymbalta from GI provider MONITOR B/P educated on all medications, benefits, side effects and risk, and educated on depression, anxiety, and mood d/o and educated on compliance of medications, appointment's, continue therapy discussion with patient about course of treatment and patient instructions. schedule therapy Lashell educated on serotonin syndrome educated patient she is on higher doses of Sertraline and Wellbutrin seen PCP and labs seeing GI 11/12 2. Generalized anxiety disorder- Sertraline 200 mg at night 3. Chronic post-traumatic stress disorder- stable schedule therapy- Lashell scheduled 10/13 4. Memory impairment-ravin ry testing completed hx reported forgetful words and what doing at times, short term memory loss discuss and educated on medication for memory will not try Aricept r/t patient has chronic diarrhea - IBS-D discuss and educated - patient stopped Namenda 5 mg twice a day after 2.5 weeks - did not help and felt s/s intensified 5. Recurrent hypersomnia-imp roved HX Sleep study and declined CPAP IMPROVED 07/14/2024 Generalized anxiety disorder (ICD-10 - F41.1) [...] not been in therapy recently 4. Memory impairment-ravin ry testing completed hx reported forgetful words and what doing at times discuss and educated on medication for memory will not try Aricept r/t patient has chronic diarrhea - IBS-D discuss and educated - patient stopped Namenda 5 mg twice a day after 2.5 weeks - did not help and felt s/s intensified 5. Recurrent hypersomnia-imp roved HX Sleep study and declined CPAP IMPROVED [...] not been in therapy recently 4. Memory impairment-ravin ry testing completed hx reported forgetful words and [...] 03/15/2024 Other amnesia (ICD-10 - R41.3) 03/09/2024 Post-traumatic stress disorder, chronic (ICD-10 - F43.12) Post-Traumatic [...] not been in therapy recently 4. Memory impairment-ravin ry testing completed hx reported forgetful words and what doing at times discuss and educated on medication for memory will not try Aricept r/t patient has chronic diarrhea - IBS-D discuss and educated - will add Namenda 5 mg twice a day 5. Recurrent hypersomnia- HX Sleep study and declined CPAP IMPROVED 12/08/2023 Post-traumatic stress disorder, chronic (ICD-10 - F43.12) Post-Traumatic [...] days. Qty: (90) tablet Refills: 0 Pharmacy: [facility] #[id number] venlafaxine ER 37.5 mg capsule,extende d release 24 hr - Take 1 capsule(s) every day by oral route in the morning for 90 days. Qty: (90) capsule Refills: 0 Pharmacy: [facility] #[id number] 2. Generalized anxiety disorder- Sertraline 200 mg at night F41.1: Generalized anxiety disorder stable sertraline 100 mg tablet - Take 2 tablet(s) every day by oral route at bedtime for 90 days. Qty: (180) tablet Refills: 0 Pharmacy: [facility] #[id number] 3. Chronic post-traumatic stress disorder- stable schedule therapy F43.12: Post-traumatic stress disorder, chronic 4. Memory impairment-ravin ry testing completed R41.3: Other amnesia 5. Recurrent hypersomnia- HX Sleep study and declined CPAP IMPROVED G47.13: Recurrent hypersomnia 10/23/2024 Post-traumatic stress disorder, chronic (ICD-10 - F43.12) 10/25/2024 Generalized anxiety disorder (ICD-10 - F41.1) Patient had reduction in suicidal ideation and/or behavior upon follow-up assessment within 120 days of index assessment (M1357) 11/06/2024 Generalized anxiety disorder (ICD-10 - F41.1) 11/02/2024 Encounter for screening for cardiovascular disorders (ICD-10 - Z13.6) 1. major depression- Sertraline 200 mg at night- Wellbutrin XL 300 mg daily Pateint requested to stop - Effexor ER 37.5 MG IN AM [place] 150 mg daily - improved mood and improved suicidal thoughts [place] education [place] use reviewed. Risks include risks of toxicity, arrhythmias, cognitive impairment, changes in muscle coordination, weight gain, thyroid and parathyroid changes, polydipsia and polyuria, alopecia, tremor and teratogenicity ( defects). Recommend avoid in females (use contraception consistently). Routine lab monitoring may be required. Patient consented to treatment. Indications: acute vic (euphoric vic), bipolar prophylaxis, bipolar depression treatment or augmentation, unipolar depression as augmentation with antidepressants Average dose = I,500 mg/day, target serum level 0.8 [place] is known to reduce risk of suicide. Mechanism of action: inhibits inositol monophosphatase , interfering with 2nd messengers Nuisance Side Effects: sedation, cognitive difficulties, decreased creativity, dry mouth, tremor, increased appetite, weight gain, polydipsia, polyuria, nausea, diarrhea, acne, alopecia Serious Side Effects: Thyroid: hypothyroidism (5%), goiter (3%) Cardiac: decrease in cardiac conduction leading to sick sinus syndrome, blocks SA node Teratogenicity: Ebstein's anomaly 2 in 1,000 Renal: chronic renal insufficiency (after 10-20 years), acute renal failure, polyuria occurs in 50-70% [lithium antagonizes anti-diuretic hormone (ADH)], diabetes insipidus in 10% (treat with amiloride) Drug-drug interactions: increase in lithium: NSAIDs, MYLA inhibitors, angiotensin II antagonists If you are planning on becoming , notify your health care provider so that he/she can best manage your medications. People living with bipolar disorder who wish to become face important decisions. It is important to discuss the risks and benefits of treatment with your doctor and caregivers. [place] has been associated with an increased risk of Ebstein's anomaly, a heart valve defect. Even though data suggest that the risk of Ebstein's anomaly from first trimester use of lithium is very low, an ultrasound of the heart is recommended at 16 to 20 weeks of gestation. [place] levels should be monitored monthly in early and weekly near delivery. Do not stop taking lithium without first speaking to your health care provider. Discontinuing mood stabilizer medications during has been associated with a significant increase in symptom relapse. If an overdose occurs call your doctor or 911. You may need urgent medical care. You may also contact the poison control center at . A specific treatment to reverse the effects of lithium does not exist, but there are treatments to decrease the effects of the medication. Only a doctor can determine if you require treatment. Avoid drinking alcohol or using illegal drugs while you are taking lithium. They may decrease the benefits (e.g., worsen your condition) and increase adverse effects (e.g., sedation) of the medication. Avoid low sodium diets and dehydration because this can increase the risk of lithium toxicity. Avoid over the counter and prescription pain medications that contain nonsteroidal anti-inflammato ry medications (NSAIDS) such as ibuprofen (Motrin, Advil) or naproxen (Aleve, Naprosyn) because these medications can increase the risk of toxicity from lithium. Avoid excessive intake of caffeinated beverages, such as coffee, tea, cola or energy drinks, since these may decrease levels of lithium and decrease effectiveness of the medication. Discontinuing caffeine use may increase lithium levels. Consult your health care provider before reducing or stopping caffeine use. What are the possible side effects of lithium? Common side effects Headache Nausea or vomiting Diarrhea Dizziness or drowsiness Changes in appetite Hand tremors Dry mouth Increased thirst Increased urination Thinning of hair or hair loss Acne-like rash Rare/Serious side effects Signs of lithium toxicity include severe nausea and vomiting, severe hand tremors, confusion, vision changes, and unsteadiness while standing or walking. These symptoms need to be addressed immediately with a medical doctor to ensure your lithium level is not dangerously high. In rare cases, lithium may lead to a reversible condition known as diabetes insipidus. If this occurs you would notice a significant increase in thirst and how much fluid you drink and how much you urinate. Talk to your doctor if you notice you are urinating more frequently than usual. Are There Any Risks For Taking [place] For Long Periods Of Time? Hypothyroidism (low levels of thyroid hormone) may occur with long-term lithium use. Rare kidney problems have been associated with long-term use of lithium. The risk increases with high levels of lithium. Your doctor will monitor your kidney function at routine check-ups to ensure this does not occur. Summary of Black Box Warnings [place] Toxicity [place] toxicity is closely related to lithium blood levels and can occur at doses close to therapeutic levels; lithium levels should be monitored closely when starting the medication or if individuals experience side effects of the medication Patient never started Cyamarilisalta from GI provider MONITOR B/P educated on all medications, benefits, side effects and risk, and educated on depression, anxiety, and mood d/o and educated on compliance of medications, appointment's, continue therapy discussion with patient about course of treatment and patient instructions. schedule therapy Lashell educated on serotonin syndrome educated patient she is on higher doses of Sertraline and Wellbutrin seen PCP and labs seeing GI 11/12 2. Generalized anxiety disorder- Sertraline 200 mg at night 3. Chronic post-traumatic stress disorder- stable schedule therapy- Lashell scheduled 10/13 4. Memory impairment-ravin ry testing completed hx reported forgetful words and what doing at times, short term memory loss discuss and educated on medication for memory will not try Aricept r/t patient has chronic diarrhea - IBS-D discuss and educated - patient stopped Namenda 5 mg twice a day after 2.5 weeks - did not help and felt s/s intensified 5. Recurrent hypersomnia-imp roved HX Sleep study and declined CPAP IMPROVED 6. tobacco Smoking Education Do not smoke. Nicotine and other chemicals in cigarettes and cigars can cause lung damage. Ask your healthcare provider for information if you currently smoke and need help to quit. E-cigarettes or smokeless tobacco still contain nicotine. Talk to your healthcare provider before you use these products. education on decrease to stopping nicotine products and stop smoking hotline given Quit - Yes [place] Tobacco Quitline Call a Smoking Quitline The National Cancer [place] Smoking Quitline, (2-604-16W-QUIT ) Smokefree.gov, which connects you with your State's Quitline, (9-225-RRYEOZI) [facility] Smoking Quitline, (6-861-GUOJHRR) 7. elevated Blood pressure reading B/P EDUCATION educated on healthy b/p 120/80 monitor b/p at home refer to PCP, heart healthy diet and excise limit salt intake limit soda intake and caffiene increase water 10/23/2024 Post-traumatic stress disorder, chronic (ICD-10 - F43.12) 10/11/2024 Generalized anxiety disorder (ICD-10 - F41.1) 11/02/2024 Dietary counseling and surveillance (ICD-10 - Z71.3) 1. major depression- Sertraline 200 mg at night- Wellbutrin XL 300 mg daily Pateint requested to stop - Effexor ER 37.5 MG IN AM [place] 150 mg daily - improved mood and improved suicidal thoughts [place] education [place] use reviewed. Risks include risks of toxicity, arrhythmias, cognitive impairment, changes in muscle coordination, weight gain, thyroid and parathyroid changes, polydipsia and polyuria, alopecia, tremor and teratogenicity ( defects). Recommend avoid in females (use contraception consistently). Routine lab monitoring may be required. Patient consented to treatment. Indications: acute vic (euphoric vic), bipolar prophylaxis, bipolar depression treatment or augmentation, unipolar depression as augmentation with antidepressants Average dose = I,500 mg/day, target serum level 0.8 [place] is known to reduce risk of suicide. Mechanism of action: inhibits inositol monophosphatase , interfering with 2nd messengers Nuisance Side Effects: sedation, cognitive difficulties, decreased creativity, dry mouth, tremor, increased appetite, weight gain, polydipsia, polyuria, nausea, diarrhea, acne, alopecia Serious Side Effects: Thyroid: hypothyroidism (5%), goiter (3%) Cardiac: decrease in cardiac conduction leading to sick sinus syndrome, blocks SA node Teratogenicity: Ebstein's anomaly 2 in 1,000 Renal: chronic renal insufficiency (after 10-20 years), acute renal failure, polyuria occurs in 50-70% [lithium antagonizes anti-diuretic hormone (ADH)], diabetes insipidus in 10% (treat with amiloride) Drug-drug interactions: increase in lithium: NSAIDs, MYLA inhibitors, angiotensin II antagonists If you are planning on becoming , notify your health care provider so that he/she can best manage your medications. People living with bipolar disorder who wish to become face important decisions. It is important to discuss the risks and benefits of treatment with your doctor and caregivers. [place] has been associated with an increased risk of Ebstein's anomaly, a heart valve defect. Even though data suggest that the risk of Ebstein's anomaly from first trimester use of lithium is very low, an ultrasound of the heart is recommended at 16 to 20 weeks of gestation. [place] levels should be monitored monthly in early and weekly near delivery. Do not stop taking lithium without first speaking to your health care provider. Discontinuing mood stabilizer medications during has been associated with a significant increase in symptom relapse. If an overdose occurs call your doctor or 911. You may need urgent medical care. You may also contact the poison control center at . A specific treatment to reverse the effects of lithium does not exist, but there are treatments to decrease the effects of the medication. Only a doctor can determine if you require treatment. Avoid drinking alcohol or using illegal drugs while you are taking lithium. They may decrease the benefits (e.g., worsen your condition) and increase adverse effects (e.g., sedation) of the medication. Avoid low sodium diets and dehydration because this can increase the risk of lithium toxicity. Avoid over the counter and prescription pain medications that contain nonsteroidal anti-inflammato ry medications (NSAIDS) such as ibuprofen (Motrin, Advil) or naproxen (Aleve, Naprosyn) because these medications can increase the risk of toxicity from lithium. Avoid excessive intake of caffeinated beverages, such as coffee, tea, cola or energy drinks, since these may decrease levels of lithium and decrease effectiveness of the medication. Discontinuing caffeine use may increase lithium levels. Consult your health care provider before reducing or stopping caffeine use. What are the possible side effects of lithium? Common side effects Headache Nausea or vomiting Diarrhea Dizziness or drowsiness Changes in appetite Hand tremors Dry mouth Increased thirst Increased urination Thinning of hair or hair loss Acne-like rash Rare/Serious side effects Signs of lithium toxicity include severe nausea and vomiting, severe hand tremors, confusion, vision changes, and unsteadiness while standing or walking. These symptoms need to be addressed immediately with a medical doctor to ensure your lithium level is not dangerously high. In rare cases, lithium may lead to a reversible condition known as diabetes insipidus. If this occurs you would notice a significant increase in thirst and how much fluid you drink and how much you urinate. Talk to your doctor if you notice you are urinating more frequently than usual. Are There Any Risks For Taking [place] For Long Periods Of Time? Hypothyroidism (low levels of thyroid hormone) may occur with long-term lithium use. Rare kidney problems have been associated with long-term use of lithium. The risk increases with high levels of lithium. Your doctor will monitor your kidney function at routine check-ups to ensure this does not occur. Summary of Black Box Warnings [place] Toxicity [place] toxicity is closely related to lithium blood levels and can occur at doses close to therapeutic levels; lithium levels should be monitored closely when starting the medication or if individuals experience side effects of the medication Patient never started Cymbalta from GI provider MONITOR B/P educated on all medications, benefits, side effects and risk, and educated on depression, anxiety, and mood d/o and educated on compliance of medications, appointment's, continue therapy discussion with patient about course of treatment and patient instructions. schedule therapy [facility] educated on serotonin syndrome educated patient she is on higher doses of Sertraline and Wellbutrin seen PCP and labs seeing GI 11/12 2. Generalized anxiety disorder- Sertraline 200 mg at night 3. Chronic post-traumatic stress disorder- stable schedule therapy- [facility]hell scheduled 10/13 4. Memory impairment-ravin ry testing completed hx reported forgetful words and what doing at times, short term memory loss discuss and educated on medication for memory will not try Aricept r/t patient has chronic diarrhea - IBS-D discuss and educated - patient stopped Namenda 5 mg twice a day after 2.5 weeks - did not help and felt s/s intensified 5. Recurrent hypersomnia-imp roved HX Sleep study and declined CPAP IMPROVED 6. tobacco Smoking Education Do not smoke. Nicotine and other chemicals in cigarettes and cigars can cause lung damage. Ask your healthcare provider for information if you currently smoke and need help to quit. E-cigarettes or smokeless tobacco still contain nicotine. Talk to your healthcare provider before you use these products. education on decrease to stopping nicotine products and stop smoking hotline given 373-Quit - Yes [place] Tobacco Quitline Call a Smoking Quitline The [employer] [place] Smoking Quitline, (5-064-83J-QUIT ) Smokefree.gov, which connects you with your State's Quitline, (3-362-UJJINMD) Veterans Smoking Quitline, (8-443-OYIYZLP) 7. elevated Blood pressure reading B/P EDUCATION educated on healthy b/p 120/80 monitor b/p at home refer to PCP, heart healthy diet and excise limit salt intake limit soda intake and caffiene increase water 10/25/2024 History of suicidal ideation (ICD-10 - Z86.59) Patient had reduction in suicidal ideation and/or behavior upon follow-up assessment within 120 days of index assessment ([id number]) 10/23/2024 Generalized anxiety disorder (ICD-10 - F41.1) 12/08/2023 Recurrent hypersomnia (ICD-10 - G47.13) 1. [...] days. Qty: (90) tablet Refills: 0 Pharmacy: [facility] #[id number] venlafaxine ER 37.5 mg capsule,extende d release 24 hr - Take 1 capsule(s) every day by oral route in the morning for 90 days. Qty: (90) capsule Refills: 0 Pharmacy: [facility] #[id number] 2. Generalized anxiety disorder- Sertraline 200 mg at night F41.1: Generalized anxiety disorder stable sertraline 100 mg tablet - Take 2 tablet(s) every day by oral route at bedtime for 90 days. Qty: (180) tablet Refills: 0 Pharmacy: [facility] #[id number] 3. Chronic post-traumatic stress disorder- stable schedule therapy F43.12: Post-traumatic stress disorder, chronic 4. Memory impairment-ravin ry testing completed R41.3: Other amnesia 5. Recurrent [...] not been in therapy recently 4. Memory impairment-ravni ry testing completed hx reported forgetful words and [...] not been in therapy recently 4. Memory impairment-ravin ry testing completed hx reported forgetful words and what doing at times discuss and educated on medication for memory will not try Aricept r/t patient has chronic diarrhea - IBS-D discuss and educated - patient stopped Namenda 5 mg twice a day after 2.5 weeks - did not help and felt s/s intensified 5. Recurrent hypersomnia-imp roved HX Sleep study and declined CPAP IMPROVED 07/14/2024 Post-traumatic stress disorder, chronic (ICD-10 - F43.12) Post-Traumatic Stress Disorder (PTSD): Care Instructions material was published, Post-Traumatic Stress Disorder (PTSD): Care Instructions material was published 09/15/2024 Post-traumatic stress disorder, chronic (ICD-10 - F43.12) Post-Traumatic Stress Disorder (PTSD): Care Instructions material was published, Post-Traumatic Stress Disorder (PTSD): Care Instructions material was published 1. major depression- Sertraline 200 mg at night- Wellbutrin XL 300 mg daily pateint re-started Effexor ER 37.5 MG IN AM 2 weeks ago Patient never started Cymbalta from GI provider MONITOR B/P educated on all medications, benefits, side effects and risk, and educated on depression, anxiety, and mood d/o and educated on compliance of medications, appointment's, continue therapy discussion with patient about course of treatment and patient instructions. schedule therapy [facility]hell educated on serotonin syndrome educated patient she is on higher doses of Sertraline and Wellbutrin seen PCP and labs seeing GI 11/12 2. Generalized anxiety disorder- Sertraline 200 mg at night 3. Chronic post-traumatic stress disorder- stable schedule therapy- Lashell scheduled 10/13 4. Memory impairment-ravin ry testing completed hx reported forgetful words and what doing at times, short term memory loss discuss and educated on medication for memory will not try Aricept r/t patient has chronic diarrhea - IBS-D discuss and educated - patient stopped Namenda 5 mg twice a day after 2.5 weeks - did not help and felt s/s intensified 5. Recurrent hypersomnia-imp roved HX Sleep study and declined CPAP IMPROVED 09/15/2024 Recurrent hypersomnia (ICD-10 - G47.13) 1. major depression- Sertraline 200 mg at night- Wellbutrin XL 300 mg daily pateint re-started Effexor ER 37.5 MG IN AM 2 weeks ago Patient never started Cymbalta from GI provider MONITOR B/P educated on all medications, benefits, side effects and risk, and educated on depression, anxiety, and mood d/o and educated on compliance of medications, appointment's, continue therapy discussion with patient about course of treatment and patient instructions. schedule therapy Lashell educated on serotonin syndrome educated patient she is on higher doses of Sertraline and Wellbutrin seen PCP and labs seeing GI 11/12 2. Generalized anxiety disorder- Sertraline 200 mg at night 3. Chronic post-traumatic stress disorder- stable schedule therapy- [facility]hell scheduled 10/13 4. Memory impairment-ravin ry testing completed hx reported forgetful words and what doing at times, short term memory loss discuss and educated on medication for memory will not try Aricept r/t patient has chronic diarrhea - IBS-D discuss and educated - patient stopped Namenda 5 mg twice a day after 2.5 weeks - did not help and felt s/s intensified 5. Recurrent hypersomnia-imp roved HX Sleep study and declined CPAP IMPROVED 05/09/2024 Major depressive disorder, recurrent, mild (ICD-10 [...] not been in therapy recently 4. Memory impairment-ravin ry testing completed hx reported forgetful words and [...] not been in therapy recently 4. Memory impairment-ravin ry testing completed hx reported forgetful words and what doing at times discuss and educated on medication for memory will not try Aricept r/t patient has chronic diarrhea - IBS-D discuss and educated - patient stopped Namenda 5 mg twice a day after 2.5 weeks - did not help and felt s/s intensified 5. Recurrent hypersomnia-imp roved HX Sleep study and declined CPAP IMPROVED [...] not been in therapy recently 4. Memory impairment-ravin ry testing completed hx reported forgetful words and what doing at times discuss and educated on medication for memory will not try Aricept r/t patient has chronic diarrhea - IBS-D discuss and educated - will add Namenda 5 mg twice a day 5. Recurrent hypersomnia- HX Sleep study and declined CPAP IMPROVED 10/23/2024 Tobacco use (ICD-10 - Z72.0) 10/23/2024 Encounter for screening for depression (ICD-10 - Z13.31) 10/11/2024 Encounter for screening for depression (ICD-10 - Z13.31) 11/02/2024 Other amnesia (ICD-10 - R41.3) 1. major depression- Sertraline 200 mg at night- Wellbutrin XL 300 mg daily Pateint requested to stop - Effexor ER 37.5 MG IN AM [place] 150 mg daily - improved mood and improved suicidal thoughts [place] education [place] use reviewed. Risks include risks of toxicity, arrhythmias, cognitive impairment, changes in muscle coordination, weight gain, thyroid and parathyroid changes, polydipsia and polyuria, alopecia, tremor and teratogenicity ( defects). Recommend avoid in females (use contraception consistently). Routine lab monitoring may be required. Patient consented to treatment. Indications: acute vic (euphoric vic), bipolar prophylaxis, bipolar depression treatment or augmentation, unipolar depression as augmentation with antidepressants Average dose = I,500 mg/day, target serum level 0.8 [place] is known to reduce risk of suicide. Mechanism of action: inhibits inositol monophosphatase , interfering with 2nd messengers Nuisance Side Effects: sedation, cognitive difficulties, decreased creativity, dry mouth, tremor, increased appetite, weight gain, polydipsia, polyuria, nausea, diarrhea, acne, alopecia Serious Side Effects: Thyroid: hypothyroidism (5%), goiter (3%) Cardiac: decrease in cardiac conduction leading to sick sinus syndrome, blocks SA node Teratogenicity: Ebstein's anomaly 2 in 1,000 Renal: chronic renal insufficiency (after 10-20 years), acute renal failure, polyuria occurs in 50-70% [lithium antagonizes anti-diuretic hormone (ADH)], diabetes insipidus in 10% (treat with amiloride) Drug-drug interactions: increase in lithium: NSAIDs, MYLA inhibitors, angiotensin II antagonists If you are planning on becoming , notify your health care provider so that he/she can best manage your medications. People living with bipolar disorder who wish to become face important decisions. It is important to discuss the risks and benefits of treatment with your doctor and caregivers. [place] has been associated with an increased risk of Ebstein's anomaly, a heart valve defect. Even though data suggest that the risk of Ebstein's anomaly from first trimester use of lithium is very low, an ultrasound of the heart is recommended at 16 to 20 weeks of gestation. [place] levels should be monitored monthly in early and weekly near delivery. Do not stop taking lithium without first speaking to your health care provider. Discontinuing mood stabilizer medications during has been associated with a significant increase in symptom relapse. If an overdose occurs call your doctor or 911. You may need urgent medical care. You may also contact the poison control center at . A specific treatment to reverse the effects of lithium does not exist, but there are treatments to decrease the effects of the medication. Only a doctor can determine if you require treatment. Avoid drinking alcohol or using illegal drugs while you are taking lithium. They may decrease the benefits (e.g., worsen your condition) and increase adverse effects (e.g., sedation) of the medication. Avoid low sodium diets and dehydration because this can increase the risk of lithium toxicity. Avoid over the counter and prescription pain medications that contain nonsteroidal anti-inflammato ry medications (NSAIDS) such as ibuprofen (Motrin, Advil) or naproxen (Aleve, Naprosyn) because these medications can increase the risk of toxicity from lithium. Avoid excessive intake of caffeinated beverages, such as coffee, tea, cola or energy drinks, since these may decrease levels of lithium and decrease effectiveness of the medication. Discontinuing caffeine use may increase lithium levels. Consult your health care provider before reducing or stopping caffeine use. What are the possible side effects of lithium? Common side effects Headache Nausea or vomiting Diarrhea Dizziness or drowsiness Changes in appetite Hand tremors Dry mouth Increased thirst Increased urination Thinning of hair or hair loss Acne-like rash Rare/Serious side effects Signs of lithium toxicity include severe nausea and vomiting, severe hand tremors, confusion, vision changes, and unsteadiness while standing or walking. These symptoms need to be addressed immediately with a medical doctor to ensure your lithium level is not dangerously high. In rare cases, lithium may lead to a reversible condition known as diabetes insipidus. If this occurs you would notice a significant increase in thirst and how much fluid you drink and how much you urinate. Talk to your doctor if you notice you are urinating more frequently than usual. Are There Any Risks For Taking [place] For Long Periods Of Time? Hypothyroidism (low levels of thyroid hormone) may occur with long-term lithium use. Rare kidney problems have been associated with long-term use of lithium. The risk increases with high levels of lithium. Your doctor will monitor your kidney function at routine check-ups to ensure this does not occur. Summary of Black Box Warnings [place] Toxicity [place] toxicity is closely related to lithium blood levels and can occur at doses close to therapeutic levels; lithium levels should be monitored closely when starting the medication or if individuals experience side effects of the medication Patient never started Cymbalta from GI provider MONITOR B/P educated on all medications, benefits, side effects and risk, and educated on depression, anxiety, and mood d/o and educated on compliance of medications, appointment's, continue therapy discussion with patient about course of treatment and patient instructions. schedule therapy [facility]hell educated on serotonin syndrome educated patient she is on higher doses of Sertraline and Wellbutrin seen PCP and labs seeing GI 11/12 2. Generalized anxiety disorder- Sertraline 200 mg at night 3. Chronic post-traumatic stress disorder- stable schedule therapy- [facility] scheduled 10/13 4. Memory impairment-ravin ry testing completed hx reported forgetful words and what doing at times, short term memory loss discuss and educated on medication for memory will not try Aricept r/t patient has chronic diarrhea - IBS-D discuss and educated - patient stopped Namenda 5 mg twice a day after 2.5 weeks - did not help and felt s/s intensified 5. Recurrent hypersomnia-imp roved HX Sleep study and declined CPAP IMPROVED 6. tobacco Smoking Education Do not smoke. Nicotine and other chemicals in cigarettes and cigars can cause lung damage. Ask your healthcare provider for information if you currently smoke and need help to quit. E-cigarettes or smokeless tobacco still contain nicotine. Talk to your healthcare provider before you use these products. education on decrease to stopping nicotine products and stop smoking hotline given -Quit - Yes [place] Tobacco Quitline Call a Smoking Quitline The National Cancer [place]'s Smoking Quitline, (4-022-60L-QUIT ) Smokefree.gov, which connects you with your State's Quitline, (0-327-HWCQBTD) Veterans Smoking Quitline, (7-826-OCSBQKZ) 7. elevated Blood pressure reading B/P EDUCATION educated on healthy b/p 120/80 monitor b/p at home refer to PCP, heart healthy diet and excise limit salt intake limit soda intake and caffiene increase water 09/15/2024 Encounter for screening for depression (ICD-10 - Z13.31) 1. major depression- Sertraline 200 mg at night- Wellbutrin XL 300 mg daily pateint re-started Effexor ER 37.5 MG IN AM 2 weeks ago Patient never started Cymbalta from GI provider MONITOR B/P educated on all medications, benefits, side effects and risk, and educated on depression, anxiety, and mood d/o and educated on compliance of medications, appointment's, continue therapy discussion with patient about course of treatment and patient instructions. schedule therapy [facility]hell educated on serotonin syndrome educated patient she is on higher doses of Sertraline and Wellbutrin seen PCP and labs seeing GI 11/12 2. Generalized anxiety disorder- Sertraline 200 mg at night 3. Chronic post-traumatic stress disorder- stable schedule therapy- [facility]hell scheduled 10/13 4. Memory impairment-ravin ry testing completed hx reported forgetful words and what doing at times, short term memory loss discuss and educated on medication for memory will not try Aricept r/t patient has chronic diarrhea - IBS-D discuss and educated - patient stopped Namenda 5 mg twice a day after 2.5 weeks - did not help and felt s/s intensified 5. Recurrent hypersomnia-imp roved HX Sleep study and declined CPAP IMPROVED 11/02/2024 Generalized anxiety disorder (ICD-10 - F41.1) Generalized Anxiety Disorder: Care Instructions material was published, Learning About Generalized Anxiety Disorder material was published, Learning About Anxiety Disorders material was published, Generalized Anxiety Disorder: Care Instructions material was published, Learning About Generalized Anxiety Disorder material was published, Learning About Anxiety Disorders material was published 1. major depression- Sertraline 200 mg at night- Wellbutrin XL 300 mg daily Pateint requested to stop - Effexor ER 37.5 MG IN AM [place] 150 mg daily - improved mood and improved suicidal thoughts [place] education [place] use reviewed. Risks include risks of toxicity, arrhythmias, cognitive impairment, changes in muscle coordination, weight gain, thyroid and parathyroid changes, polydipsia and polyuria, alopecia, tremor and teratogenicity ( defects). Recommend avoid in females (use contraception consistently). Routine lab monitoring may be required. Patient consented to treatment. Indications: acute vic (euphoric vic), bipolar prophylaxis, bipolar depression treatment or augmentation, unipolar depression as augmentation with antidepressants Average dose = I,500 mg/day, target serum level 0.8 [place] is known to reduce risk of suicide. Mechanism of action: inhibits inositol monophosphatase , interfering with 2nd messengers Nuisance Side Effects: sedation, cognitive difficulties, decreased creativity, dry mouth, tremor, increased appetite, weight gain, polydipsia, polyuria, nausea, diarrhea, acne, alopecia Serious Side Effects: Thyroid: hypothyroidism (5%), goiter (3%) Cardiac: decrease in cardiac conduction leading to sick sinus syndrome, blocks SA node Teratogenicity: Ebstein's anomaly 2 in 1,000 Renal: chronic renal insufficiency (after 10-20 years), acute renal failure, polyuria occurs in 50-70% [lithium antagonizes anti-diuretic hormone (ADH)], diabetes insipidus in 10% (treat with amiloride) Drug-drug interactions: increase in lithium: NSAIDs, MYLA inhibitors, angiotensin II antagonists If you are planning on becoming , notify your health care provider so that he/she can best manage your medications. People living with bipolar disorder who wish to become face important decisions. It is important to discuss the risks and benefits of treatment with your doctor and caregivers. [place] has been associated with an increased risk of Ebstein's anomaly, a heart valve defect. Even though data suggest that the risk of Ebstein's anomaly from first trimester use of lithium is very low, an ultrasound of the heart is recommended at 16 to 20 weeks of gestation. [place] levels should be monitored monthly in early and weekly near delivery. Do not stop taking lithium without first speaking to your health care provider. Discontinuing mood stabilizer medications during has been associated with a significant increase in symptom relapse. If an overdose occurs call your doctor or 911. You may need urgent medical care. You may also contact the poison control center at . A specific treatment to reverse the effects of lithium does not exist, but there are treatments to decrease the effects of the medication. Only a doctor can determine if you require treatment. Avoid drinking alcohol or using illegal drugs while you are taking lithium. They may decrease the benefits (e.g., worsen your condition) and increase adverse effects (e.g., sedation) of the medication. Avoid low sodium diets and dehydration because this can increase the risk of lithium toxicity. Avoid over the counter and prescription pain medications that contain nonsteroidal anti-inflammato ry medications (NSAIDS) such as ibuprofen (Motrin, Advil) or naproxen (Aleve, Naprosyn) because these medications can increase the risk of toxicity from lithium. Avoid excessive intake of caffeinated beverages, such as coffee, tea, cola or energy drinks, since these may decrease levels of lithium and decrease effectiveness of the medication. Discontinuing caffeine use may increase lithium levels. Consult your health care provider before reducing or stopping caffeine use. What are the possible side effects of lithium? Common side effects Headache Nausea or vomiting Diarrhea Dizziness or drowsiness Changes in appetite Hand tremors Dry mouth Increased thirst Increased urination Thinning of hair or hair loss Acne-like rash Rare/Serious side effects Signs of lithium toxicity include severe nausea and vomiting, severe hand tremors, confusion, vision changes, and unsteadiness while standing or walking. These symptoms need to be addressed immediately with a medical doctor to ensure your lithium level is not dangerously high. In rare cases, lithium may lead to a reversible condition known as diabetes insipidus. If this occurs you would notice a significant increase in thirst and how much fluid you drink and how much you urinate. Talk to your doctor if you notice you are urinating more frequently than usual. Are There Any Risks For Taking [place] For Long Periods Of Time? Hypothyroidism (low levels of thyroid hormone) may occur with long-term lithium use. Rare kidney problems have been associated with long-term use of lithium. The risk increases with high levels of lithium. Your doctor will monitor your kidney function at routine check-ups to ensure this does not occur. Summary of Black Box Warnings [place] Toxicity [place] toxicity is closely related to lithium blood levels and can occur at doses close to therapeutic levels; lithium levels should be monitored closely when starting the medication or if individuals experience side effects of the medication Patient never started Cymbalta from GI provider MONITOR B/P educated on all medications, benefits, side effects and risk, and educated on depression, anxiety, and mood d/o and educated on compliance of medications, appointment's, continue therapy discussion with patient about course of treatment and patient instructions. schedule therapy Lashell educated on serotonin syndrome educated patient she is on higher doses of Sertraline and Wellbutrin seen PCP and labs seeing GI 11/12 2. Generalized anxiety disorder- Sertraline 200 mg at night 3. Chronic post-traumatic stress disorder- stable schedule therapy- Lashell scheduled 10/13 4. Memory impairment-ravin ry testing completed hx reported forgetful words and what doing at times, short term memory loss discuss and educated on medication for memory will not try Aricept r/t patient has chronic diarrhea - IBS-D discuss and educated - patient stopped Namenda 5 mg twice a day after 2.5 weeks - did not help and felt s/s intensified 5. Recurrent hypersomnia-imp roved HX Sleep study and declined CPAP IMPROVED 6. tobacco Smoking Education Do not smoke. Nicotine and other chemicals in cigarettes and cigars can cause lung damage. Ask your healthcare provider for information if you currently smoke and need help to quit. E-cigarettes or smokeless tobacco still contain nicotine. Talk to your healthcare provider before you use these products. education on decrease to stopping nicotine products and stop smoking hotline given 814-Quit - Yes [place] Tobacco Quitline Call a Smoking Quitline The National [employer] [place] Smoking Quitline, (3-075-69P-QUIT ) Smokefree.gov, which connects you with your State's Quitline, (3-822-GGDCFOO) [facility] Smoking Quitline, (3-672-EINPPPX) 7. elevated Blood pressure reading B/P EDUCATION educated on healthy b/p 120/80 monitor b/p at home refer to PCP, heart healthy diet and excise limit salt intake limit soda intake and caffiene increase water 10/23/2024 Encounter for screening for depression (ICD-10 - Z13.31) 10/25/2024 Encounter for screening for cardiovascular disorders (ICD-10 - Z13.6) Patient had reduction in suicidal ideation and/or behavior upon follow-up assessment within 120 days of index assessment (M1357) 05/09/2024 Post-traumatic stress disorder, chronic (ICD-10 - F43.12) Post-Traumatic [...] not been in therapy recently 4. Memory impairment-ravin ry testing completed hx reported forgetful words and what doing at times discuss and educated on medication for memory will not try Aricept r/t patient has chronic diarrhea - IBS-D discuss and educated - patient stopped Namenda 5 mg twice a day after 2.5 weeks - did not help and felt s/s intensified 5. Recurrent hypersomnia- HX Sleep study and declined CPAP IMPROVED 06/19/2024 Post-traumatic stress disorder, chronic (ICD-10 - F43.12) Post-Traumatic [...] not been in therapy recently 4. Memory impairment-ravin ry testing completed hx reported forgetful words and what doing at times discuss and educated on medication for memory will not try Aricept r/t patient has chronic diarrhea - IBS-D discuss and educated - patient stopped Namenda 5 mg twice a day after 2.5 weeks - did not help and felt s/s intensified 5. Recurrent hypersomnia-imp roved HX Sleep study and declined CPAP IMPROVED [...] not been in therapy recently 4. Memory impairment-ravin ry testing completed hx reported forgetful words and what doing at times discuss and educated on medication for memory will not try Aricept r/t patient has chronic diarrhea - IBS-D discuss and educated - patient stopped Namenda 5 mg twice a day after 2.5 weeks - did not help and felt s/s intensified 5. Recurrent hypersomnia-imp roved HX Sleep study and declined CPAP IMPROVED [...] not been in therapy recently 4. Memory impairment-ravin ry testing completed hx reported forgetful words and what doing at times discuss and educated on medication for memory will not try Aricept r/t patient has chronic diarrhea - IBS-D discuss and educated - patient stopped Namenda 5 mg twice a day after 2.5 weeks - did not help and felt s/s intensified 5. Recurrent hypersomnia- HX Sleep study and declined CPAP IMPROVED 10/25/2024 Dietary counseling and surveillance (ICD-10 - Z71.3) Patient had reduction in suicidal ideation and/or behavior upon follow-up assessment within 120 days of index assessment ([id number]) 11/02/2024 Post-traumatic stress disorder, chronic (ICD-10 - F43.12) Post-Traumatic Stress Disorder (PTSD): Care Instructions material was published, Post-Traumatic Stress Disorder (PTSD): Care Instructions material was published 1. major depression- Sertraline 200 mg at night- Wellbutrin XL 300 mg daily Pateint requested to stop - Effexor ER 37.5 MG IN AM [place] 150 mg daily - improved mood and improved suicidal thoughts [place] education [place] use reviewed. Risks include risks of toxicity, arrhythmias, cognitive impairment, changes in muscle coordination, weight gain, thyroid and parathyroid changes, polydipsia and polyuria, alopecia, tremor and teratogenicity ( defects). Recommend avoid in females (use contraception consistently). Routine lab monitoring may be required. Patient consented to treatment. Indications: acute vic (euphoric vic), bipolar prophylaxis, bipolar depression treatment or augmentation, unipolar depression as augmentation with antidepressants Average dose = I,500 mg/day, target serum level 0.8 [place] is known to reduce risk of suicide. Mechanism of action: inhibits inositol monophosphatase , interfering with 2nd messengers Nuisance Side Effects: sedation, cognitive difficulties, decreased creativity, dry mouth, tremor, increased appetite, weight gain, polydipsia, polyuria, nausea, diarrhea, acne, alopecia Serious Side Effects: Thyroid: hypothyroidism (5%), goiter (3%) Cardiac: decrease in cardiac conduction leading to sick sinus syndrome, blocks SA node Teratogenicity: Ebstein's anomaly 2 in 1,000 Renal: chronic renal insufficiency (after 10-20 years), acute renal failure, polyuria occurs in 50-70% [lithium antagonizes anti-diuretic hormone (ADH)], diabetes insipidus in 10% (treat with amiloride) Drug-drug interactions: increase in lithium: NSAIDs, MYLA inhibitors, angiotensin II antagonists If you are planning on becoming , notify your health care provider so that he/she can best manage your medications. People living with bipolar disorder who wish to become face important decisions. It is important to discuss the risks and benefits of treatment with your doctor and caregivers. [place] has been associated with an increased risk of Ebstein's anomaly, a heart valve defect. Even though data suggest that the risk of Ebstein's anomaly from first trimester use of lithium is very low, an ultrasound of the heart is recommended at 16 to 20 weeks of gestation. [place] levels should be monitored monthly in early and weekly near delivery. Do not stop taking lithium without first speaking to your health care provider. Discontinuing mood stabilizer medications during has been associated with a significant increase in symptom relapse. If an overdose occurs call your doctor or 911. You may need urgent medical care. You may also contact the poison control center at . A specific treatment to reverse the effects of lithium does not exist, but there are treatments to decrease the effects of the medication. Only a doctor can determine if you require treatment. Avoid drinking alcohol or using illegal drugs while you are taking lithium. They may decrease the benefits (e.g., worsen your condition) and increase adverse effects (e.g., sedation) of the medication. Avoid low sodium diets and dehydration because this can increase the risk of lithium toxicity. Avoid over the counter and prescription pain medications that contain nonsteroidal anti-inflammato ry medications (NSAIDS) such as ibuprofen (Motrin, Advil) or naproxen (Aleve, Naprosyn) because these medications can increase the risk of toxicity from lithium. Avoid excessive intake of caffeinated beverages, such as coffee, tea, cola or energy drinks, since these may decrease levels of lithium and decrease effectiveness of the medication. Discontinuing caffeine use may increase lithium levels. Consult your health care provider before reducing or stopping caffeine use. What are the possible side effects of lithium? Common side effects Headache Nausea or vomiting Diarrhea Dizziness or drowsiness Changes in appetite Hand tremors Dry mouth Increased thirst Increased urination Thinning of hair or hair loss Acne-like rash Rare/Serious side effects Signs of lithium toxicity include severe nausea and vomiting, severe hand tremors, confusion, vision changes, and unsteadiness while standing or walking. These symptoms need to be addressed immediately with a medical doctor to ensure your lithium level is not dangerously high. In rare cases, lithium may lead to a reversible condition known as diabetes insipidus. If this occurs you would notice a significant increase in thirst and how much fluid you drink and how much you urinate. Talk to your doctor if you notice you are urinating more frequently than usual. Are There Any Risks For Taking [place] For Long Periods Of Time? Hypothyroidism (low levels of thyroid hormone) may occur with long-term lithium use. Rare kidney problems have been associated with long-term use of lithium. The risk increases with high levels of lithium. Your doctor will monitor your kidney function at routine check-ups to ensure this does not occur. Summary of Black Box Warnings [place] Toxicity [place] toxicity is closely related to lithium blood levels and can occur at doses close to therapeutic levels; lithium levels should be monitored closely when starting the medication or if individuals experience side effects of the medication Patient never started Cymbalta from GI provider MONITOR B/P educated on all medications, benefits, side effects and risk, and educated on depression, anxiety, and mood d/o and educated on compliance of medications, appointment's, continue therapy discussion with patient about course of treatment and patient instructions. schedule therapy Lashell educated on serotonin syndrome educated patient she is on higher doses of Sertraline and Wellbutrin seen PCP and labs seeing GI 11/12 2. Generalized anxiety disorder- Sertraline 200 mg at night 3. Chronic post-traumatic stress disorder- stable schedule therapy- Lashell scheduled 10/13 4. Memory impairment-ravin ry testing completed hx reported forgetful words and what doing at times, short term memory loss discuss and educated on medication for memory will not try Aricept r/t patient has chronic diarrhea - IBS-D discuss and educated - patient stopped Namenda 5 mg twice a day after 2.5 weeks - did not help and felt s/s intensified 5. Recurrent hypersomnia-imp roved HX Sleep study and declined CPAP IMPROVED 6. tobacco Smoking Education Do not smoke. Nicotine and other chemicals in cigarettes and cigars can cause lung damage. Ask your healthcare provider for information if you currently smoke and need help to quit. E-cigarettes or smokeless tobacco still contain nicotine. Talk to your healthcare provider before you use these products. education on decrease to stopping nicotine products and stop smoking hotline given 443-Quit - Yes [place] Tobacco Quitline Call a Smoking Quitline The [employer] [place] Smoking Quitline, (4-079-43P-QUIT ) Smokefree.gov, which connects you with your State's Quitline, (4-707-VYBWDAD) [facility] Smoking Quitline, (4-874-LGMUBUP) 7. elevated Blood pressure reading B/P EDUCATION educated on healthy b/p 120/80 monitor b/p at home refer to PCP, heart healthy diet and excise limit salt intake limit soda intake and caffiene increase water 09/15/2024 Encounter for screening for cardiovascular disorders (ICD-10 - Z13.6) 1. major depression- Sertraline 200 mg at night- Wellbutrin XL 300 mg daily pateint re-started Effexor ER 37.5 MG IN AM 2 weeks ago Patient never started Cymbalta from GI provider MONITOR B/P educated on all medications, benefits, side effects and risk, and educated on depression, anxiety, and mood d/o and educated on compliance of medications, appointment's, continue therapy discussion with patient about course of treatment and patient instructions. schedule therapy Lashell educated on serotonin syndrome educated patient she is on higher doses of Sertraline and Wellbutrin seen PCP and labs seeing GI 11/12 2. Generalized anxiety disorder- Sertraline 200 mg at night 3. Chronic post-traumatic stress disorder- stable schedule therapy- Lashell scheduled 10/13 4. Memory impairment-ravin ry testing completed hx reported forgetful words and what doing at times, short term memory loss discuss and educated on medication for memory will not try Aricept r/t patient has chronic diarrhea - IBS-D discuss and educated - patient stopped Namenda 5 mg twice a day after 2.5 weeks - did not help and felt s/s intensified 5. Recurrent hypersomnia-imp roved HX Sleep study and declined CPAP IMPROVED 11/02/2024 Recurrent hypersomnia (ICD-10 - G47.13) 1. major depression- Sertraline 200 mg at night- Wellbutrin XL 300 mg daily Pateint requested to stop - Effexor ER 37.5 MG IN AM [place] 150 mg daily - improved mood and improved suicidal thoughts [place] education [place] use reviewed. Risks include risks of toxicity, arrhythmias, cognitive impairment, changes in muscle coordination, weight gain, thyroid and parathyroid changes, polydipsia and polyuria, alopecia, tremor and teratogenicity ( defects). Recommend avoid in females (use contraception consistently). Routine lab monitoring may be required. Patient consented to treatment. Indications: acute vic (euphoric vic), bipolar prophylaxis, bipolar depression treatment or augmentation, unipolar depression as augmentation with antidepressants Average dose = I,500 mg/day, target serum level 0.8 [place] is known to reduce risk of suicide. Mechanism of action: inhibits inositol monophosphatase , interfering with 2nd messengers Nuisance Side Effects: sedation, cognitive difficulties, decreased creativity, dry mouth, tremor, increased appetite, weight gain, polydipsia, polyuria, nausea, diarrhea, acne, alopecia Serious Side Effects: Thyroid: hypothyroidism (5%), goiter (3%) Cardiac: decrease in cardiac conduction leading to sick sinus syndrome, blocks SA node Teratogenicity: Ebstein's anomaly 2 in 1,000 Renal: chronic renal insufficiency (after 10-20 years), acute renal failure, polyuria occurs in 50-70% [lithium antagonizes anti-diuretic hormone (ADH)], diabetes insipidus in 10% (treat with amiloride) Drug-drug interactions: increase in lithium: NSAIDs, MYLA inhibitors, angiotensin II antagonists If you are planning on becoming , notify your health care provider so that he/she can best manage your medications. People living with bipolar disorder who wish to become face important decisions. It is important to discuss the risks and benefits of treatment with your doctor and caregivers. [place] has been associated with an increased risk of Ebstein's anomaly, a heart valve defect. Even though data suggest that the risk of Ebstein's anomaly from first trimester use of lithium is very low, an ultrasound of the heart is recommended at 16 to 20 weeks of gestation. [place] levels should be monitored monthly in early and weekly near delivery. Do not stop taking lithium without first speaking to your health care provider. Discontinuing mood stabilizer medications during has been associated with a significant increase in symptom relapse. If an overdose occurs call your doctor or 911. You may need urgent medical care. You may also contact the poison control center at . A specific treatment to reverse the effects of lithium does not exist, but there are treatments to decrease the effects of the medication. Only a doctor can determine if you require treatment. Avoid drinking alcohol or using illegal drugs while you are taking lithium. They may decrease the benefits (e.g., worsen your condition) and increase adverse effects (e.g., sedation) of the medication. Avoid low sodium diets and dehydration because this can increase the risk of lithium toxicity. Avoid over the counter and prescription pain medications that contain nonsteroidal anti-inflammato ry medications (NSAIDS) such as ibuprofen (Motrin, Advil) or naproxen (Aleve, Naprosyn) because these medications can increase the risk of toxicity from lithium. Avoid excessive intake of caffeinated beverages, such as coffee, tea, cola or energy drinks, since these may decrease levels of lithium and decrease effectiveness of the medication. Discontinuing caffeine use may increase lithium levels. Consult your health care provider before reducing or stopping caffeine use. What are the possible side effects of lithium? Common side effects Headache Nausea or vomiting Diarrhea Dizziness or drowsiness Changes in appetite Hand tremors Dry mouth Increased thirst Increased urination Thinning of hair or hair loss Acne-like rash Rare/Serious side effects Signs of lithium toxicity include severe nausea and vomiting, severe hand tremors, confusion, vision changes, and unsteadiness while standing or walking. These symptoms need to be addressed immediately with a medical doctor to ensure your lithium level is not dangerously high. In rare cases, lithium may lead to a reversible condition known as diabetes insipidus. If this occurs you would notice a significant increase in thirst and how much fluid you drink and how much you urinate. Talk to your doctor if you notice you are urinating more frequently than usual. Are There Any Risks For Taking [place] For Long Periods Of Time? Hypothyroidism (low levels of thyroid hormone) may occur with long-term lithium use. Rare kidney problems have been associated with long-term use of lithium. The risk increases with high levels of lithium. Your doctor will monitor your kidney function at routine check-ups to ensure this does not occur. Summary of Black Box Warnings [place] Toxicity [place] toxicity is closely related to lithium blood levels and can occur at doses close to therapeutic levels; lithium levels should be monitored closely when starting the medication or if individuals experience side effects of the medication Patient never started Cymbalta from GI provider MONITOR B/P educated on all medications, benefits, side effects and risk, and educated on depression, anxiety, and mood d/o and educated on compliance of medications, appointment's, continue therapy discussion with patient about course of treatment and patient instructions. schedule therapy Lashell educated on serotonin syndrome educated patient she is on higher doses of Sertraline and Wellbutrin seen PCP and labs seeing GI 11/12 2. Generalized anxiety disorder- Sertraline 200 mg at night 3. Chronic post-traumatic stress disorder- stable schedule therapy- Lashell scheduled 10/13 4. Memory impairment-ravin ry testing completed hx reported forgetful words and what doing at times, short term memory loss discuss and educated on medication for memory will not try Aricept r/t patient has chronic diarrhea - IBS-D discuss and educated - patient stopped Namenda 5 mg twice a day after 2.5 weeks - did not help and felt s/s intensified 5. Recurrent hypersomnia-imp roved HX Sleep study and declined CPAP IMPROVED 6. tobacco Smoking Education Do not smoke. Nicotine and other chemicals in cigarettes and cigars can cause lung damage. Ask your healthcare provider for information if you currently smoke and need help to quit. E-cigarettes or smokeless tobacco still contain nicotine. Talk to your healthcare provider before you use these products. education on decrease to stopping nicotine products and stop smoking hotline given -Quit - Yes [place] Tobacco Quitline Call a Smoking Quitline The [employer] [place] Smoking Quitline, (9-093-53A-QUIT ) Smokefree.gov, which connects you with your State's Quitline, (6-050-NCQIXOH) [facility] Smoking Quitline, (5-794-CGRLMWN) 7. elevated Blood pressure reading B/P EDUCATION educated on healthy b/p 120/80 monitor b/p at home refer to PCP, heart healthy diet and excise limit salt intake limit soda intake and caffiene increase water 12/08/2023 Other Sertraline Oral Tablet (SERTRALINE - [...] days. Qty: (90) tablet Refills: 0 Pharmacy: [facility] #[id number] venlafaxine ER 37.5 mg capsule,extende d release 24 hr - Take 1 capsule(s) every day by oral route in the morning for 90 days. Qty: (90) capsule Refills: 0 Pharmacy: [facility] #[id number] 2. Generalized anxiety disorder- Sertraline 200 mg at night F41.1: Generalized anxiety disorder stable sertraline 100 mg tablet - Take 2 tablet(s) every day by oral route at bedtime for 90 days. Qty: (180) tablet Refills: 0 Pharmacy: [facility] #[id number] 3. Chronic post-traumatic stress disorder- stable schedule therapy F43.12: Post-traumatic stress disorder, chronic 4. Memory impairment-ravin ry testing completed R41.3: Other amnesia 5. Recurrent hypersomnia- HX Sleep study and declined CPAP IMPROVED G47.13: Recurrent hypersomnia 03/09/2024 Other referral to the local chapter or national office of the Alzheimer's Association ( ; http://www.alz.or g), the Alzheimer's Disease Education and Referral [facility] (ADEAR) ( ; http://www.[place].gov/Alzheimers/ ), , Sertraline Oral Tablet (SERTRALINE - ORAL) [...] not been in therapy recently 4. Memory impairment-ravin ry testing completed hx reported forgetful words and [...] distress and self-blame related to confrontation with [id number]. - Plan: - Continue with regular therapy sessions to address emotional distress and self-blame. - Encourage the use of coping strategies, such as deep breathing and mindfulness techniques, to manage emotional triggers. - Discuss the possibility of incorporating EMDR therapy to address core beliefs of defectiveness and vulnerability. - Teach and practice tapping techniques (Emotional Bristol Technique) to help manage emotional distress and [...] interactions with difficult family members, particularly the [id number]. Suspected History of Childhood Trauma - Assessment: [...] - Teach and practice tapping techniques (Emotional Bristol Technique) to help manage emotional distress and [...] figures, aggressive behavior, and interactions with her [id number]. - Plan: - Identify specific triggers, particularly related to female authority figures and aggressive behavior, as well as experiences with her [id number]. - Develop coping strategies to manage anxiety [...] and conflict resolution, particularly with her and [id number]. - Plan: - Support the patient in improving communication and conflict resolution skills, particularly with her and bwpeie-me-azu. - Encourage the patient to set healthy [...] outlines corresponding plans for treatment and support. 09/15/2024 Other Preventing Depression From Coming Back: Care Instructions material was published, Learning About Depression material was published, Learning About Depression Screening material was published, Learning About How to Get Help During a Mental Health Crisis material was published, Depression Treatment: Care Instructions material was published 1. major depression- Sertraline 200 mg at night- Wellbutrin XL 300 mg daily pateint re-started Effexor ER 37.5 MG IN AM 2 weeks ago Patient never started Cymbalta from GI provider MONITOR B/P educated on all medications, benefits, side effects and risk, and educated on depression, anxiety, and mood d/o and educated on compliance of medications, appointment's, continue therapy discussion with patient about course of treatment and patient instructions. schedule therapy Lashell educated on serotonin syndrome educated patient she is on higher doses of Sertraline and Wellbutrin seen PCP and labs seeing GI 11/12 2. Generalized anxiety disorder- Sertraline 200 mg at night 3. Chronic post-traumatic stress disorder- stable schedule therapy- Lashell scheduled 10/13 4. Memory impairment-ravin ry testing completed hx reported forgetful words and what doing at times, short term memory loss discuss and educated on medication for memory will not try Aricept r/t patient has chronic diarrhea - IBS-D discuss and educated - patient stopped Namenda 5 mg twice a day after 2.5 weeks - did not help and felt s/s intensified 5. Recurrent hypersomnia-imp roved HX Sleep study and declined CPAP IMPROVED 10/11/2024 Other Suicidal Ideation - Assessment: Lala reports having Googled painless methods of suicide, indicating passive suicidal ideation without current intent or plan. The ideation appears related to feelings of worthlessness and recent interpersonal conflicts, exacerbating her emotional distress. - Plan: - Conduct a thorough suicide risk assessment at next session. - Provide crisis hotline information and safety planning. - Explore and address underlying factors contributing to suicidal thoughts in future sessions. Chronic Feelings of Worthlessness - Assessment: Lala expresses persistent feelings of worthlessness. These feelings have persisted into adulthood and are currently triggered by recent interpersonal conflicts. Her negative cognition of I am worthless suggests deeply ingrained core beliefs contributing to emotional distress and interpersonal difficulties. - Plan: - Initiate EMDR therapy in the next session to address traumatic childhood experiences and negative core beliefs. - Explore and challenge negative self-perceptions using cognitive restructuring techniques. - Develop strategies to improve self-esteem and self-worth. Interpersonal Conflicts - Assessment: Lala reports recent conflicts with her best friend and extended family. She feels offended by her friend's suggestion that she needs nurturing and perceives her friend as being snarky. Her extended family is pressuring her to apologize to her losqhc-gu-wda, causing further distress. - Plan: - Teach and practice assertive communication skills to improve interpersonal relationships. - Explore Lala's reactions to perceived criticism and develop coping strategies. - Discuss boundaries and self-advocacy in relationships. Trauma Response to Aggressive Women - Assessment: Lala reports being triggered by aggressive women approaching or threatening her. This response may be related to past traumatic experiences or learned behavior from her childhood. - Plan: - Address this specific trigger during EMDR therapy sessions. - Develop and practice coping strategies for managing trauma responses in triggering situations. - Explore the connection between this trigger and past experiences in therapy sessions. Each section addresses a specific issue Lala is facing and outlines a corresponding assessment and treatment plan. 10/23/2024 Other Major Depressive Disorder with Suicidal Ideation - Assessment: Lala presents with worsening depressive symptoms following a family conflict. She reports current suicidal thoughts with a specific plan of asphyxiation by helium, though no date has been set. This represents an acute exacerbation of her depressive symptoms and a significant increase in suicide risk. Lala has a history of self-harm, having cut her wrists as a teenager after a conflict with her mother, though this did not require hospitalization at the time. The recent family altercation appears to have triggered a deterioration in her mental state, manifesting as increased depressive symptoms including screaming episodes. - Plan: - Referred [facility] for immediate psychiatric assessment. - Potential medication adjustment to be determined by psychiatry. - Possible referral for Transcranial Magnetic Stimulation (TMS) therapy to be evaluated. - Follow-up appointment to be scheduled after psychiatric assessment. Family Conflict - Assessment: Lala reports ongoing interpersonal difficulties with family members, specifically mentioning a recent altercation with her puuvjw-bh-joh in April. The conflict has persisted, with siblings requesting Lala to apologize again, which appears to have contributed significantly to her current depressive episode. Additionally, Lala describes a historically strained relationship with her mother, whom she characterizes as evil, indicating longstanding family dysfunction that may be impacting her current mental state. - Plan: - Continue to explore and address family dynamics in future therapy sessions. - Consider family therapy or conflict resolution strategies if appropriate after stabilization of acute symptoms. Each section addresses Lala's specific concerns and outlines corresponding plans for treatment and support. 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 Major Depressive Disorder with Suicidal Ideation Assessment: Patient reports worsening depression due to a recent family issue. She endorses active suicidal ideation with a plan, indicating severe symptoms. PHQ-9 score of 17 and HEATH-7 score of 18 suggest severe depression and anxiety symptoms. Patient identifies spirituality as a protective factor. Access to firearms is present but secured by her , who is aware of her current mental state. Plan: - Start lithium 150mg PO qHS for 7 days - Informed consent: Discussed potential benefits for acute suicidal ideation and risks - Patient expressed reluctance but agreed to try - Submit for insurance approval of Spravato (esketamine) nasal spray for acute suicidal thoughts - Explained treatment process: 2-hour sessions, twice weekly, with medical doctor supervision - Discussed potential side effects including feeling spacey or drunk - Follow-up appointment in 2-3 days to reassess - Strongly recommended inpatient psychiatric hospitalization - Patient declined due to financial concerns - Safety plan: - Patient agreed to attempt to keep herself safe until next appointment - aware of current mental state and has control of firearm access - Emergency services available if unable to maintain safety - Suicide safety plan in place and patient educated on crisis prevention hotline '532' - continue therapy Generalized Anxiety Disorder Assessment: Patient has a HEATH-7 score of 18, indicating severe anxiety symptoms. This is consistent with her reported history of anxious attachment and PTSD from childhood trauma. Plan: - Continue current anxiety medications: - continue therapy - Reassess anxiety symptoms at follow-up appointment 10/25/2024 Giovanni Reeves, a patient with a history of depression and suicidal ideation, presents for follow-up after being seen on Wednesday for SI with plan and starting [place]. Major Depressive Disorder with recent suicidal ideation Assessment: Patient reports improvement in mood since last visit. She denies current suicidal ideation, stating she had fun for the first time in a while yesterday. However, she acknowledges that her mood could potentially fluctuate. Patient started [place] last night for a planned 7-day course to address acute depressive symptoms and SI. She reports difficulty sleeping after the first dose, which she attributes to GI side effects. Plan: - Continue lithium for 7-day course as prescribed - Educated patient on importance of adequate hydration while taking lithium to prevent side effects related to dehydration (e.g., lightheadedness, dry mouth, dizziness, loss of balance) - Resume bupropion and sertraline in addition to venlafaxine and lithium - Monitor for improvement in depressive symptoms and any side effects - Follow-up appointment scheduled with therapist, Lashell on 11/06/24 - Next appointment with Rashida Lanec on 12/15/24 - Will attempt to schedule an earlier appointment next week - Advised patient about walk-in clinic availability if needed sooner - suicide safety plan in place - patient aware of crisis hotline number '435'. Medication management Assessment: Patient reports taking first dose of lithium last night. She did not take bupropion or sertraline due to concerns about drug interactions with lithium but did take venlafaxine. Patient education provided regarding safe concurrent use of all prescribed medications. Plan: - Continue [place] as prescribed - Continue venlafaxine as previously prescribed - Resume bupropion and sertraline as previously prescribed - Monitor for any adverse effects or drug interactions The note is transcribed using speech recognition software. It is a reflection of a visit with the patient. It might have some inaccuracy, including medication names and transcribing errors, though efforts have been made to correct them. Patient had reduction in suicidal ideation and/or behavior upon follow-up assessment within 120 days of index assessment (M1357) 11/06/2024 Other Major Depressive Disorder with recent suicidal ideation - Assessment: Patient reports significant improvement in mood and clarity of thought since starting lithium and engaging in self-reflection and personal growth activities. She describes feeling more emotionally regulated and distant from recent stressors, particularly conflicts with her ajietn-ep-lgr. - Plan: - Continue current medication regimen, including lithium (dose not specified) - Encourage ongoing engagement in self-reflection and personal growth activities - Monitor for any return of depressive symptoms or suicidal ideation Family and Relationship Dynamics - Assessment: Patient reports improved interactions with her children and a meaningful reunion with her father's side of the family. She demonstrates increased insight into relationship patterns, including recognition of her 's dismissive-avoida nt attachment style. The patient expresses a desire for deeper, more authentic connections and is working on finding her people who share her depth of thought and emotional expression. - Plan: - Encourage continued exploration and nurturing of meaningful relationships - Discuss strategies for managing differences in attachment styles within relationships - Support patient in maintaining boundaries and authenticity in interactions Plan Of Treatment Next Appt Details Provider Name:Lashell Reyes, 11/20/2024 11:00:00 AM, [address], [facility] [address], [place], [address], Provider Name:Lashell Reyes, 12/04/2024 09:00:00 AM, [address], [address], [place], [address], Provider Name:Rashida Boo , 12/14/2024 10:45:00 AM, [address], [address], [place], [address], Provider Name:Rashida Boo , 12/15/2024 11:45:00 AM, [address], [address], [place], [address], Insurance Providers Payer Name Payer Address Payer Phone Subscriber Number Group Number Insured Name Patient Relationship to Insured Coverage Start Date Coverage End Date Medicare-I l Medicare [address] [place] [address] [id number] LALA ALAMO Self - patient is the insured [facility] [address] [place] [address] [id number] EFREN Brock LALA Self - patient is the insured Medical (General) History Medical History History ICD Code Problems: Chronic post-traumatic stress disorder Generalized anxiety disorder Memory impairment Mild recurrent major depression Moderate recurrent major depression Recurrent hypersomnia Severe recurrent major depression withou t psychotic features Tobacco user IBS Surgical History Surgery Date(Month/Year) Cataract surgery (94921) delivery (55702) Discectomy of spine (6573853) Any surgical history 06/21/2009 Cataract surgery (38798) 05/04/2019 Any surgical history 06/18/2021 DNC October 2023
--- OUTSIDE RECORDS SUMMARY | 2024-11-09 10:47 | XMS_ITS | Encounter Summary ---
Author Organization [facility] Care Team Providers Care Reverse Logistics Analyst Name Role Phone Guido Gonzalez MD Primary Care Provider [phone] Tom Pat MD Primary Care Provider Kamille Montalvo DO Primary Care Provider [phone] Encounter Details Date Type Department Care Team (Latest Contact Info) Description 01/14/2017 Orders Only [facility] CLINCONV ProviderParisa MD [address] [place] [address] Social History Tobacco Use Types Packs/Day Years Used Date Smoking Tobacco: Never Assessed Comments Unknown Sex and Gender Information Value Date Recorded Sex Assigned at Not on file 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 [facility] [address] [place] [address] PCP - General Family Medicine 12/24/23 documented as of this encounter
--- OUTSIDE RECORDS SUMMARY | 2024-11-09 10:47 | XMS_ITS | Clinical Summary ---
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
--- OUTSIDE RECORDS SUMMARY | 2024-11-09 10:47 | XMS_ITS | Clinical Summary ---
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7 [facility] [address] [place] [address] [place] [address] PCP - General Family Medicine 12/24/23
== END 2024-11-09 10:46 | disposition home or self-care (01) ==
LOC: ANHAUDIO 10:45
PROVIDERS: PCP Nurse Practitioner; Visit Provider Otolaryngology
DX: H90.3 Sensorineural hearing loss, bilateral (principal)
CPT/HCPCS: 92557; 92567

== ENCOUNTER 2024-11-14 00:47 | Day surgery (SDC) | payer MEDICARE, SELFPAY ==
[2024-11-06 10:22] VITALS: BMI 24.5
--- OUTSIDE RECORDS SUMMARY | 2024-11-14 00:50 | XMS_ITS | Continuity of Care Document ---
Author Organization [facility] Address [address] [facility] [address] [place] [address] Phone Care Team Providers Care Cras Name Role Phone Edgard PT, BHAVINT, Pj Unavailable Unavailable Procedures Procedure Date Therapeutic Activities Therapeutic Exercise Neuromuscular Re-Ed Therapeutic Activities Neuromuscular Re-Ed Therapeutic Activities Neuromuscular Re-Ed Therapeutic Activities Neuromuscular Re-Ed Therapeutic Activities Neuromuscular Re-Ed Therapeutic Activities Neuromuscular Re-Ed Neuromuscular Re-Ed Therapeutic Activities Therapeutic Activities PT Evaluation Moderate Complexity Neuromuscular Re-Ed Therapeutic Exercise Advance Directives Directive Yes / No Effective Date File Name No Information Encounters Encounter Description Practice Location Reason(s) For Visit Diagnoses Date Provider Providers Copied on Encounter [facility] [facility] [address], [place], [place], [id number], [place] tel:[phone] [place] No Information 1 Edgard Oliva. . [facility], [address] [facility], [place], [place], [id number], tel:[phone] [place] No Information 1 Edgard Oliva. . Referring Provider: Piter Jolley [facility] [address], [place], [address]. tel:[phone] [place] [address] [facility] [address], [place], [place], [address], [place] tel:[phone] [place] No Information 1 Makler Luke. . Referring Provider: Tom Pat [address] [place] [address] [address], [place], [address]. tel:[phone] [facility] [address], [place], [place], [address], [place] tel:[phone] [place] No Information 0 1 Makler Luke. . Referring Provider: Cherrie Jolley[address] [place] [address] [address], [place], [place], [facility]. tel:[phone] [address], [place], [place], [address], [place] tel:[phone] [place] No Information 0 1 Makler Luke. . Referring Provider: Piter Jolley [facility] [address], [place], [address]. tel:[phone] [address], [place], [place], [address], [place] tel:[phone] [place] No Information 1 Makler Luke. . Referring Provider: Piter Jolley [facility] [address], [place], [address]. tel:[phone], [place], [place], [address], [place] tel:[phone] [place] No Information 1 Makler Luke. . Referring Provider: Piter Jolley [facility] [address], [place], [address]. tel:[phone] [facility] [address], [place], [place], [address], [place] tel:[phone] [place] No Information 1 Edgard Oliva. . Referring Provider: Piter Jolley [address], [place], [address]. tel:[phone] [facility], [address] [facility] [address], [place], [place], [address], tel:[phone] [place] No Information 1 Edgard Oliva. . Referring Provider: Piter Jolley [address], [place], [address]. tel:[phone] Family History Family Member Type Diagnosis Age At Onset No Information Payers Payer name Insurance type Covered alliance party ID Grace russo(s) Medicare [place] [id number] Social History Type Description Quantity Date Captured Comments Sex Female Smoking Status No Information Chief Complaint And Reason For Visit No Information Reason For Referral Reason For Referral No Information History Of Present Illness Encounter Date Complaint History Of Prese nt Illness No Information Functional Status Date Functional Assessmen t No Information Instructions Date Instruction Additional Infor mation No Information Assessments Type Assessment Date No Information Patient Care Teams Name Effective Dates (start - stop) Status Members No Information
--- OUTSIDE RECORDS SUMMARY | 2024-11-14 00:50 | XMS_ITS | Clinical Summary ---
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
--- OUTSIDE RECORDS SUMMARY | 2024-11-14 00:50 | XMS_ITS | Referral Summary ---
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
--- OUTSIDE RECORDS SUMMARY | 2024-11-14 00:50 | XMS_ITS | Clinical Summary ---
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
--- OUTSIDE RECORDS SUMMARY | 2024-11-14 00:50 | XMS_ITS | Continuity of Care Document ---
Author Organization [employer] [facility] Address [address] [place] [address] Phone Care Team Providers Care Sling Operator Name Role Phone Rashida Scott MD Unavailable Unavailable Allergies, Adverse Reactions, Alerts Substance Reaction Status Criticality morphine Active No Information codeine Active No Information Medications Medication Instructions Dosage Effective Dates (start - stop) Status Comments Zoloft 50 mg tablet take 1 tablet by oral route every day 50 MG - Active nortriptyline 10 mg capsule 1 tab by mouth at bedtime - Active MEDROXYPROGESTERONE AC TABS 2.5MG TAKE 1 TABLET DAILY 2.5 MG - Active PREMARIN TABS 0.3MG TAKE 1 TABLET DAILY 0.3 MG - Active fiber 2 gram chewable tablet 2 daily - Active naproxen 500 mg tablet take 1 tablet by oral route daily at bed time - Active Airborne (with lysine acetate) 250 mg-12.5 mg chewable tablet 2 daily - Active Zoloft 25 mg tablet take 1 tablet by oral route every day 25 MG - No Longer Active Advance Directives Directive Yes / No Effective Date File Name No Information Encounters Encounter Description Practice Location Reason(s) For Visit Diagnoses Date Provider Providers Copied on Encounter [facility], [address], [place], [place], [id number] , [phone] [facility] [place] No Information Apr-1 0-201 7 [address] [address], [place], [place], [facility], [place]. tel: [phone] [facility] [address], [address], [place], [place], [id number] , tel: [phone] [facility] Routine health maintenanceDepression with anxietyIrritable bowel syndrome, unspecified type Mar-2 1-201 7 [facility]. [address] [address], [place], [place], [facility], [place]. tel: [phone] Referring Provider: Rashida Scott, [address] [place] [address], [facility]. tel:[phone] [facility], [address], [place], [place], [id number] , tel: [phone] [facility] No Information Apr-0 5-201 6 [facility]. [address], [facility], [place]. tel: [phone] [facility], [address], [place], [place], [id number] , [place] tel: [phone] [facility] [place] Hematuria Sep-3 0-201 5 [facility]. [facility] [address], [facility], [place]. tel: [phone] Referring Provider: Rashida Scott, [address] [place] [address], [facility]. tel:[phone] [facility], [address], [place], [place], [id number] , tel: [phone] [facility] [place] DysuriaHematuria Sep-1 6-201 5 [facility]. [facility] [address], [facility], [place]. tel: [phone] Referring Provider: Rashida Scott, [facility] [address], [place], [place], [facility]. tel:[phone] [facility], [address], [place], [place], [id number] , tel: [phone] [place] Inconclusive mammogram due to dense breastsFamily history of breast cancer 5 [address]. [address], [address], [place]. tel: [phone] [facility], [address], [place], [place], [address] , tel: [phone] [facility] [place] UTI (lower urinary tract infection) [address] [facility] [facility] [facility] [address], [address], [place]. tel: [phone] Referring Provider: Rashida Scott, [facility] [address], [facility]. tel:[phone] [facility], [address], [place], [place], [address] , tel: [phone] [facility] [place] Depression with anxietyMenopausal syndrome (hot flashes)IBS (irritable bowel syndrome)UTI (lower urinary tract infection)Palpitation sHistory of thyroid noduleAlopeciaScreeni ng, lipid 5 [facility]. [address], [facility], . tel: [phone] Referring Provider: Rashida Scott, [address], [facility]. tel:[phone] Family History Family Member Type Diagnosis Age At Onset Paternal grandmother Problem (finding) alzheimer's dis ease Mother Problem (finding) malignant neop lasm of breast in first degree relative Father Problem (finding) Cardiovascular disease Brother Problem (finding) alcoholism Sister Problem (finding) malignant neop lasm of breast in first degree relative Payers Payer name Insurance type Covered green party ID Authoriza tion(s) No Information Social History Type Description Quantity Date Captured Comments Alcohol Use Details Unknown Caffeine Use Details Unknown Tobacco Use Status Smoking Status No Information Sex Female Chief Complaint And Reason For Visit No [...]
--- OUTSIDE RECORDS SUMMARY | 2024-11-14 00:50 | XMS_ITS | Encounter Summary ---
Author Organization [facility] Facility Care Team Providers Care Panel Maker Name Role Phone Guido Gonzalez MD Primary Care Provider [phone] Tom Pat MD Primary Care Provider Kamille Montalvo DO Primary Care Provider [phone] Encounter Details Date Type Department Care Team (Latest Contact Info) Description 01/14/2017 Orders Only [facility] CLINCONV ProviderParisa MD [address] [place] [address] Social History Tobacco Use Types Packs/Day Years Used Date Smoking Tobacco: Never Assessed Comments Unknown Sex and Gender Information Value Date Recorded Sex Assigned at Not on file Legal Sex Female 3:36 PM [employer] Gender Identity Not on file Sexual Orientation [...] on filedocumented in this encounter Care Teams Panel Maker Relationship Specialty Start Date End Date Guido Gonzalez MD PCP - General 11/18/18 05/09/19 Tom Pat MD [address] [place], [place] [id number] PCP - General 05/10/19 12/23/23 Kamille Montalvo DO [facility] [address] [place] [address] PCP - General Family Medicine 12/24/23 documented as of this encounter
--- OUTSIDE RECORDS SUMMARY | 2024-11-14 00:50 | XMS_ITS ---
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 disorder (12286831) Post-traumatic stress disorder, chronic (F43.12) 11/08/19 24 Active confirmed Problem Recurrent hypersomnia (636276485) Recurrent hypersomnia (G47.13) 09/06/19 24 Active confirmed Problem Amnesia (84790986) Other amnesia (R41.3) 09/06/19 24 Active confirmed Problem 8843971 Suicidal ideations (R45.851) Active confirmed Problem Screening for cardiovascular system disease (358031719) Encounter for screening for cardiovascular disorders (Z13.6) Active confirmed Problem Dietary management surveillance (971638978) Dietary counseling and surveillance (Z71.3) Active confirmed Problem Tobacco use (724385472) Tobacco use (Z72.0) Active confirmed Problem Depression Screening (071143109) Encounter for screening for depression (Z13.31) Active confirmed Problem 52948542 MDD (major depressive disorder), recurrent episode, moderate (F33.1) Active confirmed Problem History of psychiatric disorder (757970651) History of suicidal ideation (Z86.59) Active confirmed Vital Signs Heart Rate 79 /min 11/02/2024 Respiratory Rate 18 /min 12/08/2023 Blood pressure diastolic 82 mm Hg 11/02/2024 Height-cm 149.86 cm 11/02/2024 Weight-kg 55.47 kg 11/02/2024 Height 59.00 in 11/02/2024 Blood pressure systolic 142 mm Hg 11/02/2024 Weight 122.3 lbs 11/02/2024 BMI 24.7 kg/m2 11/02/2024 Encounters Encounter Location Date Provider Diagnosis [facility] [employer] [place] [id number] [facility] [address] [address] 12/06/2023 Lashell Reyes Generalized anxiety disorder F41.1 ; Post-traumatic stress disorder, chronic F43.12 and Major depressive disorder, recurrent, mild F33.0 [place] [id number] [facility] [address] [address] 12/08/2023 Rashida Boo Major depressive disorder, recurrent, mild F33.0 ; Generalized anxiety disorder F41.1 ; Post-traumatic stress disorder, chronic F43.12 and Recurrent hypersomnia G47.13 [place] [id number] [facility] [address] [address] 03/09/2024 Rashida Thercarli Major depressive disorder, recurrent, mild F33.0 ; Generalized anxiety disorder F41.1 ; Post-traumatic stress disorder, chronic F43.12 ; Recurrent hypersomnia G47.13 and Other amnesia R41.3 [facility] [address] [address] 05/09/2024 Rashida Thercarli Other amnesia R41.3 ; Major depressive disorder, recurrent, moderate F33.1 ; Generalized anxiety disorder F41.1 ; Major depressive disorder, recurrent, mild F33.0 ; Post-traumatic stress disorder, chronic F43.12 and Recurrent hypersomnia G47.13 [facility] [address] [facility] [address] [address] 06/19/2024 Rashida Thercarli Other amnesia R41.3 ; Major depressive disorder, recurrent, moderate F33.1 ; Generalized anxiety disorder F41.1 ; Major depressive disorder, recurrent, mild F33.0 ; Post-traumatic stress disorder, chronic F43.12 and Recurrent hypersomnia G47.[address] [address] 07/14/2024 Lashell Reyes Major depressive disorder, recurrent, moderate F33.1 ; Generalized anxiety disorder F41.1 and Post-traumatic stress disorder, chronic F43.[address] [address] 08/17/2024 Lashell Reyes Major depressive disorder, recurrent, mild F33.0 ; Generalized anxiety disorder F41.1 and Post-traumatic stress disorder, chronic F43.[address] [address] 09/15/2024 Rashida Boo Other amnesia R41.3 ; Major depressive disorder, recurrent, moderate F33.1 ; Generalized anxiety disorder F41.1 ; Post-traumatic stress disorder, chronic F43.12 ; Recurrent hypersomnia G47.13 ; Encounter for screening for depression Z13.31 and Encounter for screening for cardiovascular disorders Z13.6 [place] [address] [facility] [address] [address] 10/11/2024 Lashell Reyes Major depressive disorder, recurrent, mild F33.0 ; Post-traumatic stress disorder, chronic F43.12 ; Generalized anxiety disorder F41.1 and Encounter for screening for depression Z13.[address] [address] 10/23/2024 Lashell Reyes Major depressive disorder, recurrent, mild F33.0 ; Generalized anxiety disorder F41.1 ; Post-traumatic stress disorder, chronic F43.12 and Encounter for screening for depression Z13.31 [facility] [address] [facility] [address] [address] 10/23/2024 Cristian Bauman Major depressive disorder, recurrent severe without psychotic features F33.2 ; Suicidal ideations R45.851 ; Post-traumatic stress disorder, chronic F43.12 ; Generalized anxiety disorder F41.1 ; Tobacco use Z72.0 and Encounter for screening for depression Z13.31 [facility] [address] [place] [address] 10/25/2024 Cristian Bauman Major depressive disorder, recurrent severe without psychotic features F33.2 ; Post-traumatic stress disorder, chronic F43.12 ; Generalized anxiety disorder F41.1 ; History of suicidal ideation Z86.59 ; Encounter for screening for cardiovascular disorders Z13.6 and Dietary counseling and surveillance Z71.3 [facility] [address] [facility] [address] [place] [address] 11/02/2024 Rashida Thery Encounter for screening for depression Z13.31 ; Major depressive disorder, recurrent, moderate F33.1 ; Encounter for screening for cardiovascular disorders Z13.6 ; Dietary counseling and surveillance Z71.3 ; Other amnesia R41.3 ; Generalized anxiety disorder F41.1 ; Post-traumatic stress disorder, chronic F43.12 and Recurrent hypersomnia G47.13 [facility] [address] [facility] [address] [place] [address] 11/06/2024 Lashell Reyes Major depressive disorder, recurrent severe without psychotic features F33.2 ; Post-traumatic stress disorder, chronic F43.12 and Generalized anxiety disorder F41.1 [facility] [address] [facility] [address] [place] [address] 03/15/2024 Rashida Thercarli Major depressive disorder, recurrent, mild F33.0 and Other amnesia R41.3 [facility] [address] [facility] [address] [place] [address] 03/15/2024 Rashida Thery Major depressive disorder, recurrent, mild F33.0 and Other amnesia R41.3 [facility] [address] [facility] [address] [place] [address] 03/15/2024 Kuldip Rowe Major depressive disorder, recurrent, mild F33.0 and Other amnesia R41.3 [facility] [address] [facility] [address] [place] [address] 10/25/2024 Rashida Boo Major depressive disorder, recurrent, moderate F33.1 [facility] [address] [facility] [address] [place] [address] 12/06/2023 Lashell Reyes [facility], [facility] [address] [place] [address] 01/06/2024 Lashell Reyes [facility] [employer] [facility] [address] [place] [address] 03/14/2024 Lashell Reyes Assessments Encounter Date Diagnosis (ICD Code) Assessment Notes Treatment Notes Treatment Clinical Notes Section Notes 10/25/2024 Major depressive disorder, recurrent, moderate (ICD-10 - F33.1) 10/23/2024 Major depressive disorder, recurrent severe without psychotic features (ICD-10 - F33.2) 10/23/2024 Suicidal ideations (ICD-10 - R45.851) 10/25/2024 Post-traumatic stress disorder, chronic (ICD-10 - F43.12) Patient had reduction in suicidal ideation and/or behavior upon follow-up assessment within 120 days of index assessment (M1357) 11/02/2024 Major depressive disorder, recurrent, moderate (ICD-10 - F33.1) 1. major depression- Sertraline 200 mg at night- Wellbutrin XL 300 mg daily Pateint requested to stop - Effexor ER 37.5 MG IN AM Drytown 150 mg daily - improved mood and improved suicidal thoughts Drytown education Drytown use reviewed. Risks include risks of toxicity, [...] = I,500 mg/day, target serum level 0.8 Drytown is known to reduce risk of suicide. [...] of treatment with your doctor and caregivers. Drytown has been associated with an increased risk of Ebstein's anomaly, a heart valve defect. Even though data suggest that the risk of Ebstein's anomaly from first trimester use of lithium is very low, an ultrasound of the heart is recommended at 16 to 20 weeks of gestation. Drytown levels should be monitored monthly in early [...] usual. Are There Any Risks For Taking Drytown For Long Periods Of Time? Hypothyroidism (low levels of thyroid hormone) may occur with long-term lithium use. Rare kidney problems have been associated with long-term use of lithium. The risk increases with high levels of lithium. Your doctor will monitor your kidney function at routine check-ups to ensure this does not occur. Summary of Black Box Warnings Drytown Toxicity Drytown toxicity is closely related to lithium blood [...] stop smoking hotline given -Quit - Yes [place] Tobacco Quitline Call a Smoking Quitline [employer] [place]'s Smoking Quitline, (5-349-14K-QUIT ) Smokefree.gov, which connects you with your State's Quitline, (6-563-LWHYXHC) Veterans Smoking Quitline, (5-467-HWCIVCG) 7. elevated Blood pressure reading B/P EDUCATION educated on healthy b/p 120/80 monitor b/p at home refer to PCP, heart healthy diet and excise limit salt intake limit soda intake and caffiene increase water 11/02/2024 Encounter for screening for depression (ICD-10 - Z13.31) 1. major depression- Sertraline 200 mg at night- Wellbutrin XL 300 mg daily Pateint requested to stop - Effexor ER 37.5 MG IN AM [place] 150 mg daily - improved mood and improved suicidal thoughts Drytown education Drytown use reviewed. Risks include risks of toxicity, [...] = I,500 mg/day, target serum level 0.8 Drytown is known to reduce risk of suicide. [...] of treatment with your doctor and caregivers. Drytown has been associated with an increased risk of Ebstein's anomaly, a heart valve defect. Even though data suggest that the risk of Ebstein's anomaly from first trimester use of lithium is very low, an ultrasound of the heart is recommended at 16 to 20 weeks of gestation. Drytown levels should be monitored monthly in early [...] usual. Are There Any Risks For Taking [place] For Long Periods Of Time? Hypothyroidism (low levels of thyroid hormone) may occur with long-term lithium use. Rare kidney problems have been associated with long-term use of lithium. The risk increases with high levels of lithium. Your doctor will monitor your kidney function at routine check-ups to ensure this does not occur. Summary of Black Box Warnings Drytown Toxicity Drytown toxicity is closely related to lithium blood [...] stop smoking hotline given -Quit - Yes [place] Tobacco Quitline Call a Smoking Quitline [employer] [place]'s Smoking Quitline, (6-888-62W-QUIT ) Smokefree.gov, which connects you with your State's Quitline, (3-880-UIRSGFM) Veterans Smoking Quitline, (2-635-TNEQBSW) 7. elevated Blood pressure reading B/P EDUCATION educated on healthy b/p 120/80 monitor b/p at home refer to PCP, heart healthy diet and excise limit salt intake limit soda intake and caffiene increase water 10/25/2024 Major depressive disorder, recurrent severe without psychotic features (ICD-10 - F33.2) Patient had reduction in suicidal ideation and/or behavior upon follow-up assessment within 120 days of index assessment (M1357) 03/15/2024 Major depressive disorder, recurrent, mild (ICD-10 - F33.0) 03/15/2024 Major depressive disorder, recurrent, mild (ICD-10 - F33.0) 03/09/2024 Major depressive disorder, recurrent, mild (ICD-10 [...] Sleep study and declined CPAP IMPROVED 12/08/2023 Major depressive disorder, recurrent, mild (ICD-10 [...] days. Qty: (90) tablet Refills: 0 Pharmacy: [facility] #[id number] ER 37.5 mg capsule,extended release 24 hr - Take 1 capsule(s) every day by oral route in the morning for 90 days. Qty: (90) capsule Refills: 0 Pharmacy: [facility] #[id number] 2. Generalized anxiety disorder-Sertrali ne 200 mg at bsjerM33.1: Generalized anxiety disorderstableser traline 100 mg tablet - Take 2 tablet(s) every day by oral route at bedtime for 90 days. Qty: (180) tablet Refills: 0 Pharmacy: [facility] #[id number] 3. Chronic post-traumatic stress disorder- stable schedule xtohkdgA97.12: Post-traumatic stress disorder, chronic 4. Memory impairment-memory testing mfompazjhT06.3: Other amnesia 5. Recurrent hypersomnia-HX Sleep study and declined [id number] 3: Recurrent hypersomnia, Preventing Depression From Coming [...] days. Qty: (90) tablet Refills: 0 Pharmacy: [facility] #[id number] venlafaxine ER 37.5 mg capsule,extende d release 24 hr - Take 1 capsule(s) every day by oral route in the morning for 90 days. Qty: (90) capsule Refills: 0 Pharmacy: [facility] #[id number] 2. Generalized anxiety disorder- Sertraline 200 mg at night F41.1: Generalized anxiety disorder stable sertraline 100 mg tablet - Take 2 tablet(s) every day by oral route at bedtime for 90 days. Qty: (180) tablet Refills: 0 Pharmacy: [facility] #[id number] 3. Chronic post-traumatic stress disorder- stable schedule [...] days. Qty: (90) tablet Refills: 0 Pharmacy: [facility] #[id number] venlafaxine ER 37.5 mg capsule,extende d release 24 hr - Take 1 capsule(s) every day by oral route in the morning for 90 days. Qty: (90) capsule Refills: 0 Pharmacy: [facility] #[id number] 2. Generalized anxiety disorder- Sertraline 200 mg at night F41.1: Generalized anxiety disorder stable sertraline 100 mg tablet - Take 2 tablet(s) every day by oral route at bedtime for 90 days. Qty: (180) tablet Refills: 0 Pharmacy: [facility] #[id number] 3. Chronic post-traumatic stress disorder- stable schedule therapy F43.12: Post-traumatic stress disorder, chronic 4. Memory impairment-ravin ry testing completed R41.3: Other amnesia 5. Recurrent hypersomnia- HX Sleep study and declined CPAP IMPROVED G47.13: Recurrent hypersomnia 03/15/2024 Major depressive disorder, recurrent, mild (ICD-10 - F33.0) 11/06/2024 Post-traumatic stress disorder, chronic (ICD-10 - F43.12) 10/23/2024 Major depressive disorder, recurrent, mild (ICD-10 - F33.0) 10/23/2024 Generalized anxiety disorder (ICD-10 - F41.1) 10/11/2024 Major depressive disorder, recurrent, mild (ICD-10 - F33.0) 10/11/2024 Post-traumatic stress disorder, chronic (ICD-10 - [...] HX Sleep study and declined CPAP IMPROVED 08/17/2024 Major depressive disorder, recurrent, mild (ICD-10 - F33.0) 08/17/2024 Generalized anxiety disorder (ICD-10 - F41.1) 05/09/2024 Other amnesia (ICD-10 - R41.3) 1. [...] CPAP IMPROVED 05/09/2024 Major depressive disorder, recurrent, moderate (ICD-10 [...]
[2024-11-14 10:57] VITALS: BP 142/76; PULSE 87; RESP 16; TEMP 36.5; O2SAT 100; BMI 24.3
[2024-11-14] MEDS: LACTATED RINGERS 1,000 ML 150 ML IV CONT (11:14)
--- NOTE | 2024-11-14 11:28 | WPDANESEPPF ---
Anes - Initial Pre Proc Eval Procedure: Operation Date: 11/14/24 12:30 Proposed Procedures p Esophagogastroduodenoscopy & Colonoscopy - Panchiot Dinh MD Date/Time: 11/14/24 11:28 Surgeon: Panchito Dinh MD Pre Op Diagnosis: Gastro-esophageal reflux disease without esophagit Patient Data Age: 69 Gender: F Height: 1.5 m Weight: 54.7 kg Last Vital Signs Temp 97.7 F 11/14/24 10:57 Pulse 87 11/14/24 10:57 Resp 16 11/14/24 10:57 BP 142/76 H 11/14/24 10:57 Pulse Ox 100 11/14/24 10:57 O2 Del Method Room Air 11/14/24 10:57 Allergies Allergy/AdvReac Type Severity Reaction Status Date / Time Opioids - Morphine Analogues AdvReac Vomiting Verified 11/14/24 10:56 Home Medications ?Medication ?Instructions ?Recorded ?Confirmed ?Type bupropion HCl 300 mg 24 hr tablet, 300 mg PO QAM 07/31/22 11/14/24 History extended release sertraline 100 mg tablet 200 mg PO QHS 11/27/22 11/14/24 History calcium 600 mg capsule 600 mg PO DAILY 11/05/23 11/14/24 History omeprazole 20 mg capsule,delayed 20 mg PO DAILY Heartburn 11/05/23 11/14/24 History release loperamide 2 mg tablet 5 mg PO Q6H PRN loose stool 03/21/24 11/07/24 History cholecalciferol (vitamin D3) 125 125 mcg PO DAILY #90 tabs 05/01/24 11/14/24 Rx mcg (5,000 unit) tablet rosuvastatin 5 mg tablet See Rx Instructions .Route 05/25/24 11/14/24 Rx .COMPLEX #90 tabs progesterone micronized 200 mg 200 mg PO QHS #90 caps 05/29/24 11/14/24 Rx capsule fluticasone propionate 50 2 spray intranasal DAILY chronic 09/18/24 11/14/24 Rx mcg/actuation nasal ethmoid sinusitis #18 mL spray,suspension (Flonase Allergy Relief) venlafaxine 37.5 mg 37.5 mg PO DAILY 09/18/24 11/07/24 History capsule,extended release 24 hr (Effexor XR) cyclobenzaprine 5 mg tablet mg PO 10/19/24 10/19/24 History lithium carbonate 150 mg capsule 150 mg PO DAILY 11/07/24 11/14/24 History alendronate 70 mg tablet 70 mg PO WEEKLY #12 tabs 11/10/24 11/14/24 Rx Patient hx anesthesia problems: none Family hx anesthesia problems: none Results Review: All pre-operative results and documents have been reviewed as part of the pre-operative evaluation. [facility] Past Medical History Medical History delivery delivered Endometriosis Vaginal bleeding Diverticulosis Kidney stone on right side IBS (irritable bowel syndrome) Depression Anxiety Surgical History Surgical History H/O tubal ligation S/P laparoscopic surgery H/O exploratory laparotomy History of back surgery Hx of lithotripsy Family History Family History Father Family history of coronary artery disease, Onset Age: 64 Mother Family history of malignant neoplasm of breast in first degree relative Sibling Family history of malignant neoplasm of breast in first degree relative Social History Social History Years smoked: 12 Smoking status: Former smoker Tobacco type: cigarettes Second hand tobacco smoke exposure: No Smoking end date: 03/21/23 Additional smoking assessment comments: SOCIAL SMOKER Alcohol intake: current Drinks per week: 2 Alcohol use details: WINE Substance use: never Substance use type: does not use Lack of Transportation: No Lack of Food: Never True Current Housing: I Have Housing Concerned About Future Housing: No Difficulty Paying Gas/Electric Bills: No Difficulty Paying for Meds: No Currently Unemployed: No Education: Trade/Vocational Certificate Difficulty w/ Childcare or Family Care: No Living arrangements: with family Occupation/Education: retired Gender identity (if verbalized by the patient): Female Sexual Orientation (if Verbalized by the Patient): Straight or Heterosexual Spiritual care concerns: No Anes - Eval Final PreProcedure Day of Procedure 11/14/24 11:28 Patient weight: normal Heart: regular rate and rhythm Lungs: clear to auscultation Airway: Mallampati scale class II Neurological: alert and oriented Last oral intake: >/= 8 hours ASA classification: III Emergent: no Anesthetic plan: proceed Anesthesia type and monitoring: general GIVS and standard monitoring Results Review: All pre-operative results and documents have been reviewed as part of the pre-operative evaluation. Informed Consent: The patient's anesthetic plan and its attendant risks and benefits were discussed with the patient/family/POA. Questions were solicited and answers provided to the satisfaction of the patient/family/POA.
--- NOTE | 2024-11-14 11:43 | PM.HPGS ---
History of Present Illness History of Present Illness Consent: Risks, benefits, and alternatives have been discussed and questions answered. Patient agrees to proceed with procedure. Chief complaint: Gastro-esophageal reflux disease without esophagit Narrative: Lala Veliz is a 69 year old female with gerd on omeprazole, also intermittent epigastric pain, egd years ago. Last colonoscopy 2016, long standing h/o IBS-D but lately more constipation, also pelvic flood dysfunction. Review of Systems Review of Systems: All systems reviewed & are unremarkable except as noted in HPI and below PMFSH Past Medical History Medical History delivery delivered Endometriosis Vaginal bleeding Diverticulosis Kidney stone on right side IBS (irritable bowel syndrome) Depression Anxiety Surgical History Surgical History H/O tubal ligation S/P laparoscopic surgery H/O exploratory laparotomy History of back surgery Hx of lithotripsy Family History Family History Father Family history of coronary artery disease, Onset Age: 64 Mother Family history of malignant neoplasm of breast in first degree relative Sibling Family history of malignant neoplasm of breast in first degree relative Social History Social History Years smoked: 12 Smoking status: Former smoker Tobacco type: cigarettes Second hand tobacco smoke exposure: No Smoking end date: 03/21/23 Additional smoking assessment comments: SOCIAL SMOKER Alcohol intake: current Drinks per week: 2 Alcohol use details: WINE Substance use: never Substance use type: does not use Lack of Transportation: No Lack of Food: Never True Current Housing: I Have Housing Concerned About Future Housing: No Difficulty Paying Gas/Electric Bills: No Difficulty Paying for Meds: No Currently Unemployed: No Education: Trade/Vocational Certificate Difficulty w/ Childcare or Family Care: No Living arrangements: with family Occupation/Education: retired Gender identity (if verbalized by the patient): Female Sexual Orientation (if Verbalized by the Patient): Straight or Heterosexual Spiritual care concerns: No Meds Home Medications and Allergies Home Medications ?Medication ?Instructions ?Recorded ?Confirmed ?Type bupropion HCl 300 mg 24 hr tablet, 300 mg PO QAM 07/31/22 11/14/24 History extended release sertraline 100 mg tablet 200 mg PO QHS 11/27/22 11/14/24 History calcium 600 mg capsule 600 mg PO DAILY 11/05/23 11/14/24 History omeprazole 20 mg capsule,delayed 20 mg PO DAILY Heartburn 11/05/23 11/14/24 History release loperamide 2 mg tablet 5 mg PO Q6H PRN loose stool 03/21/24 11/07/24 History cholecalciferol (vitamin D3) 125 125 mcg PO DAILY #90 tabs 05/01/24 11/14/24 Rx mcg (5,000 unit) tablet rosuvastatin 5 mg tablet See Rx Instructions .Route 05/25/24 11/14/24 Rx .COMPLEX #90 tabs progesterone micronized 200 mg 200 mg PO QHS #90 caps 05/29/24 11/14/24 Rx capsule fluticasone propionate 50 2 spray intranasal DAILY chronic 09/18/24 11/14/24 Rx mcg/actuation nasal ethmoid sinusitis #18 mL spray,suspension (Flonase Allergy Relief) venlafaxine 37.5 mg 37.5 mg PO DAILY 09/18/24 11/07/24 History capsule,extended release 24 hr (Effexor XR) cyclobenzaprine 5 mg tablet mg PO 10/19/24 10/19/24 History lithium carbonate 150 mg capsule 150 mg PO DAILY 11/07/24 11/14/24 History alendronate 70 mg tablet 70 mg PO WEEKLY #12 tabs 11/10/24 11/14/24 Rx Allergies Allergy/AdvReac Type Severity Reaction Status Date / Time Opioids - Morphine Analogues AdvReac Vomiting Verified 11/14/24 10:56 Vital Signs Vital Signs - 24 hr 11/14/24 10:57 Temperature 97.7 F Pulse Rate 87 Respiratory Rate 16 Blood Pressure 142/76 H Pulse Oximetry 100 Oxygen Delivery Room Air Exam Const: General: comfortable and no acute distress HENMT: Face/Nose/Sinus: Normal nares present Eyes: General: appearance normal, both eyes and all related structures Neck: Neck: no JVD Resp: Auscultation: clear to auscultation bilaterally Cardio: Rate: regular rate Rhythm: regular rhythm GI: Inspection: non-distended GI Palp: Yes Soft to palpation Skin: General skin exam: normal color Neuro: Speech: normal speech Extrem: General: normal to inspection Psych: Mental Status: mental status grossly normal Assessment and Plan Assessment and plan (1) Change in bowel habits: Code(s): R19.4 - Change in bowel habit Status: Acute Assessment and Plan: colonoscopy with random bx (2) Irritable bowel syndrome with both constipation and diarrhea: Code(s): K58.2 - Mixed irritable bowel syndrome Status: Acute (3) Chronic GERD: Code(s): K21.9 - Gastro-esophageal reflux disease without esophagitis Status: Acute Assessment and Plan: egd
--- NOTE | 2024-11-14 12:00 | SUR.OPER ---
EGD [id number]. Colonoscopy start time 1159.
[2024-11-14 12:13] VITALS: BP 128/72; PULSE 75; RESP 15; O2SAT 100
[2024-11-14 12:23] VITALS: BP 130/74; PULSE 71; RESP 21; O2SAT 100
[2024-11-14 12:33] VITALS: BP 123/83; PULSE 68; RESP 16; O2SAT 100
== END 2024-11-14 12:49 | disposition home or self-care (01) ==
PROVIDERS: PCP Nurse Practitioner; Referring Provider Nurse Practitioner; Visit Provider Internal Medicine Gastroenterology
PROC: 0DJ08ZZ Inspection of Upper Intestinal Tract, Via Natural or Artificial Opening Endoscopic (ICD-10-PCS; CPT 45378; principal; 2024-11-14 12:30)
DX: K64.4 Residual hemorrhoidal skin tags (principal); K57.30 Diverticulosis of large intestine without perforation or abscess without bleeding; K21.9 Gastro-esophageal reflux disease without esophagitis; K58.2 Mixed irritable bowel syndrome; N80.9 Endometriosis, unspecified; F32.A Depression, unspecified; F41.9 Anxiety disorder, unspecified; Z79.83 Long term (current) use of bisphosphonates; Z98.890 Other specified postprocedural states; Z98.51 Tubal ligation status; Z98.1 Arthrodesis status; Z87.891 Personal history of nicotine dependence; Z87.442 Personal history of urinary calculi; Z87.19 Personal history of other diseases of the digestive system; Z80.3 Family history of malignant neoplasm of breast; Z82.49 Family history of ischemic heart disease and other diseases of the circulatory system
CPT/HCPCS: 43239; 45380; 88305; J2003; J2704; J7120